=== PATIENT | female | born 1975 | race African-American/Black ===

== ENCOUNTER 2017-07-18 18:10 | Inpatient (IN) | payer OTHER, MEDICAID, MEDICARE ==
[~2017-07-18] VITALS: Ht 157.5 cm; Wt 98.8 kg
[~2017-07-18 18:10] MED LIST: BACT800T5 PO; BENZ0.5T PO; CITA20TA4 PO; DEFE1TAB3 PO; FENT50DI T-DERMAL; FOLI400T PO; FURO1TAB62 PO; HYDR-3366 PO; HYDR500C PO; PALI1TAB2 PO; XARE20TA PO
[2017-07-18 20:27] VITALS: BP 137/71; PULSE 96; RESP 20; TEMP 97.7; O2SAT 100
[2017-07-18] MEDS ORDERED: NALOXONE HCL 0.4 MG/ML AMP IV PUSH PRN (20:30)
[2017-07-18] MEDS ORDERED: BISACODYL 10 MG SUPP RECTAL PRN (20:30)
[2017-07-18] MEDS ORDERED: MAGNESIUM HYDROXIDE SUSP 30 ML CUP PO PRN (20:30)
[2017-07-18] MEDS ORDERED: SENNOSIDES 8.6 MG TAB PO PRN (20:30)
[2017-07-18] MEDS ORDERED: ACETAMINOPHEN 325 MG TAB PO PRN (20:30)
[2017-07-18] MEDS ORDERED: FUROSEMIDE 20 MG/2 ML VIAL IV PUSH ONE (20:30)
[2017-07-18] MEDS ORDERED: ONDANSETRON HCL 4 MG/2 ML VIAL IVP PRN (20:30)
[2017-07-18] MEDS ORDERED: SODIUM CHLORIDE 0.9% FLUSH 10 ML FLUSH IV FLUSH PRN (20:30)
[2017-07-18] MEDS ORDERED: LACTULOSE SYRUP 20 GM/30 ML CUP PO PRN (20:30)
[2017-07-18] MEDS ORDERED: SODIUM CHLOR 0.9% 250 ML INJ 250 ML IV ONE (20:30)
[2017-07-18 20:45] VITALS: O2SAT 100
[2017-07-18 21:00] VITALS: O2SAT 96
[2017-07-18] MEDS: SODIUM CHLORIDE 0.9% FLUSH 10 ML FLUSH IV FLUSH SCH (21:12)
[2017-07-18] MEDS ORDERED: ACETAMINOPHEN/HYDROcodone 325 MG/5 MG TAB PO PRN (21:30)
[2017-07-18] MEDS ORDERED: ACETAMINOPHEN/HYDROcodone 325 MG/10 MG TAB PO PRN (21:30)
[2017-07-18] MEDS ORDERED: CHLORHEXIDINE GLUCONATE 2 % 1 PACK (2 CLOTHS)(extra cloths) TOPICAL PRN (21:45)
[2017-07-18 22:00] VITALS: PULSE 92
[2017-07-18 23:00] VITALS: BP 117/65; PULSE 97; RESP 21; TEMP 97.9; O2SAT 92
--- NOTE | 2017-07-18 23:29 | HHI.HP ---
HPI Service [facility] Hospitalists Primary Care Physician Non-Staff Admission Diagnosis Diagnoses: Chief Complaint: dyspnea Travel History International Travel<30 Days: No Contact w/Intl Traveler <30 Da: No History of Present Illness 42 y/o female with a history of sickle cell anemia, schizophrenia, sleep apnea and chf presented to the [facility] ED with complaints of shortness of breath. She was found to have a hgb of 5.1 and transferred to the [facility]. Patient is lethargic at bedside, previously received pain medicine and has severe sleep apnea. Significant other is at bedside to provide information. Significant other states patient has been short of breath for a few months and was seen previously one month ago at [facility]. He states she was found to have a DVT in her right lower extremity and placed on Xarelto with an IVC filter placed. She is trying to follow up outpatient with the theater manager and quality coordinator and is in the process of filling out paperwork to be seen. He states she has sleep apnea but due to her schizophrenia and claustrophobia she is unable to wear a CPAP at home. Upon examination patient is pretty lethargic , opens eyes to painful stimuli. She is able to state she is not in any pain, but then dozes back off to sleep. Significant other does state she has CHF but is unsure of her ejection fraction. Since patient has mostly been seen at [facility], we do not have any baseline records, and records will be requested from [facility]. Review of Systems Except as stated in HPI: all other systems reviewed are Neg Past Family Social History Past Medical History Sickle cell anemia Sleep apnea CHF Schizophrenia Past Surgical History IVC filter Port placement Cholecystectomy Reported Medications Reported Meds & Active Scripts Active Reported Fentanyl Patch 72 HR (Fentanyl) 50 Mcg/Hr Patch 50 Mcg T-DERMAL Q72H Remove old patch when new one placed. Fr[place] (Hydrocodone-Acetaminophen) 10-325 Mg Tab 1 Tab PO QID PRN Bactrim DS (Sulfamethoxazole-Trimethoprim) 800-160 Mg Tab 1 Tab PO DAILY Hydrea (Hydroxyurea) 500 Mg Cap 1,000 Mg PO DAILY Xarelto (Rivaroxaban) 20 Mg Tab 20 Mg PO DAILY Lasix (Furosemide) 20 Mg Tab 20 Mg PO DAILY Jadenu (Deferasirox) 360 Mg Tab 1,080 Mg PO DAILY Folic Acid 0.4 Mg Tab 1 Mg PO DAILY Benztropine (Benztropine Mesylate) 0.5 Mg Tab 1 Mg PO BID Citalopram (Citalopram Hydrobromide) 20 Mg Tab 20 Mg PO DAILY Paliperidone ER 3 Mg Tab 3 Mg PO DAILY Allergies: Coded Allergies: butorphanol (Unverified Allergy, Severe, 07/18/17) chlorpromazine (Unverified Allergy, Severe, 07/18/17) hydromorphone (Unverified Allergy, Severe, 07/18/17) ketorolac (Unverified Allergy, Severe, 07/18/17) nalbuphine (Unverified Allergy, Severe, 07/18/17) penicillin G (Unverified Allergy, Severe, 07/18/17) Active Ordered Medications Current Medications Medications (Trade) Dose Ordered Sig/Gini Route Start Time Stop Time Status Last Admin (NS Flush) 2 ml UNSCH PRN IV FLUSH 07/18/17 20:30 (NS Flush) 2 ml BID IV FLUSH 07/18/17 21:00 07/18/17 21:12 (Tylenol) 650 mg Q4H PRN PO 07/18/17 20:30 (Zofran Inj) 4 mg Q6H PRN IVP 07/18/17 20:30 (Narcan Inj) 0.4 mg UNSCH PRN IV PUSH 07/18/17 20:30 (Milk Of Magnesia Liq) 30 ml Q12H PRN PO 07/18/17 20:30 (Senokot) 17.2 mg Q12H PRN PO 07/18/17 20:30 (Dulcolax Supp) 10 mg DAILY PRN RECTAL 07/18/17 20:30 (Lactulose Liq) 30 ml DAILY PRN PO 07/18/17 20:30 Sodium Chloride 250 ml @ 15 mls/hr ONCE ONCE IV 07/18/17 20:30 07/19/17 13:09 07/18/17 21:12 (Frisco 5-325 Mg) 1 tab Q4H PRN PO 07/18/17 21:30 (Frisco 10-325 Mg) 1 tab Q4H PRN PO 07/18/17 21:30 (Morphine Inj) 2 mg Q3H PRN IV PUSH 07/18/17 21:45 Miscellaneous Information Patient in critical care unit? Ass... Q361D .XX 07/18/17 21:45 (Chlorhexidine 2% Cloth) 3 pack DAILY@04 TOPICAL 07/19/17 04:00 07/23/17 04:01 (Chlorhexidine 2% Cloth) 3 pack UNSCH PRN TOPICAL 07/18/17 21:45 07/23/17 21:35 Family History Unobtainable Social History Tobacco use: Denies Alcohol use: Denies Illicit drug use: Denies Physical Exam Vital Signs Vital Signs Date Time Temp Pulse Resp B/P (MAP) Pulse Ox O2 Delivery O2 Flow Rate FiO2 07/18/17 23:00 97.9 97 21 117/65 92 07/18/17 21:00 96 Nasal Cannula 4.00 07/18/17 20:45 100 Non-Rebreather 15.00 100 07/18/17 20:27 97.7 96 20 137/71 (93) 100 Physical Exam GENERAL: This is a well-nourished, obese lethargic patient with sleep apnea. SKIN: No rashes, ecchymoses or lesions. Cool and dry. HEAD: Atraumatic. Normocephalic. EYES: Pupils equal round and reactive. ENT: Nose without bleeding, purulent drainage or septal hematoma.Airway patent. NECK: Trachea midline. No JVD or lymphadenopathy. CARDIOVASCULAR: Regular rate and rhythm without murmurs, gallops, or rubs. RESPIRATORY: Diminished lower bases. No wheezes, rales, or rhonchi. GASTROINTESTINAL: Abdomen soft, non-tender, nondistended. No guarding. MUSCULOSKELETAL: Right lower extremity edema greater than left. Right calf tenderness. NEUROLOGICAL: Lethargic. Cranial nerves II through XII intact. Motor and sensory grossly within normal limits. Normal speech. Laboratory Laboratory Tests Test 07/18/17 20:30 07/18/17 21:18 Troponin I LESS THAN 0.02 Caprini VTE Risk Assessment Caprini VTE Risk Assessment: Mod/High Risk (score >= 2) Caprini Risk Assessment Model Point Value = 1 Point Value = 2 Point Value = 3 Point Value = 5 Age 41-60 Minor surgery BMI > 25 kg/m2 Swollen legs Varicose veins or History of unexplained or recurrent spontaneous Oral contraceptives or hormone replacement Sepsis (< 1 month) Serious lung disease, including pneumonia (< 1 month) Abnormal pulmonary function Acute myocardial infarction Congestive heart failure (< 1 month) History of inflammatory bowel disease Medical patient at bed rest Age 61-74 Arthroscopic surgery Major open surgery (> 45 min) Laparoscopic surgery (> 45 min) Malignancy Confined to bed (> 72 hours) Immobilizing plaster cast Central venous access Age >= 75 History of VTE Family history of VTE Factor V Leiden Prothrombin [id number] Lupus anticoagulant Anticardiolipin antibodies Elevated serum homocysteine Heparin-induced thrombocytopenia Other congenital or acquired thrombophilia Stroke (< 1 month) Elective arthroplasty Hip, pelvis, or leg fracture Acute spinal cord injury (< 1 month) Prophylaxis Regimen Total Risk Factor Score Risk Level Prophylaxis Regimen 0-1 Low Early ambulation 2 Moderate Order ONE of the following: *Sequential Compression Device (SCD) *Heparin 5000 units SQ BID 3-4 Higher Order ONE of the following medications: *Heparin 5000 units SQ TID *Enoxaparin/Lovenox 40 mg SQ daily (WT < 150 kg, CrCl > 30 mL/min) *Enoxaparin/Lovenox 30 mg SQ daily (WT < 150 kg, CrCl > 10-29 mL/min) *Enoxaparin/Lovenox 30 mg SQ BID (WT < 150 kg, CrCl > 30 mL/min) AND/OR *Sequential Compression Device (SCD) 5 or more Highest Order ONE of the following medications: *Heparin 5000 units SQ TID (Preferred with Epidurals) *Enoxaparin/Lovenox 40 mg SQ daily (WT < 150 kg, CrCl > 30 mL/min) *Enoxaparin/Lovenox 30 mg SQ daily (WT < 150 kg, CrCl > 10-29 mL/min) *Enoxaparin/Lovenox 30 mg SQ BID (WT < 150 kg, CrCl > 30 mL/min) AND *Sequential Compression Device (SCD) Assessment and Plan Problem List: (1) Symptomatic anemia ICD Code: D64.9 - Anemia, unspecified (2) CHF (congestive heart failure) ICD Code: I50.9 - Heart failure, unspecified (3) Sickle cell anemia ICD Code: D57.1 - Sickle-cell disease without crisis Assessment and Plan 42 y/o female with a history of sickle cell anemia, schizophrenia, sleep apnea and chf presented to the [facility] ED with complaints of shortness of breath Acute Symptomatic anemia, on chronic sickle cell HGB 5.1, EKG SR -Transfuse 2 units PRBCs, Lasix after first unit. -Pain management with IV morphine -Consult hematology appreciate recommendations Acute CHF exacerbation on chronic CHF, unknown EF BNP 1180 -Fluid restriction -2D echo ordered Dyspnea, suspect due to CHF and anemia D dimer elevated r/o PE, history DVT -VQ scan due to patients kidney function Severe Sleep apnea, patient lethargic upon examination -CPAP ordered Acute kidney injury on possibly chronic kidney disease, likely due to anemia Creatine 1.6, unknown baseline -Tread creatine -Avoid nephrotoxins DVT prophylaxis: SCDs, hold chemical due to anemia Discussed Condition With Patient Physician Certification 2 Midnight Certification Type: Admission for Inpatient Services Order for Inpatient Services The services are ordered in accordance with Medicare regulations or non- Medicare payer requirements, as applicable. In the case of services not specified as inpatient-only, they are appropriately provided as inpatient services in accordance with the 2-midnight benchmark. Estimated LOS (days): 2 days is the estimated time the patient will need to remain in the hospital, assuming treatment plan goals are met and no additional complications. Post-Hospital Plan: Sherri Walden Jul 18, 2017 23:29
[2017-07-19] VITALS (19 sets, daily range): BP systolic 106–134; BP diastolic 57–77; PULSE 82–102; RESP 14–28; TEMP 98.4–99.1; O2SAT 92–100
[2017-07-19] MEDS: CHLORHEXIDINE GLUCONATE 2 % 1 PACK (2 CLOTHS)(taper/protocol) TOPICAL SCH (04:00)
[2017-07-19 05:50] LABS: BASOPHIL % 0.1 % (0.0-2.0); LYMPH % 8.5 % (9.0-44.0); LYMPHOCYTE # 0.8 TH/MM3 (1.0-4.8); MEAN CELL VOLUME 88.2 FL (80.0-100.0); MEAN CORPUSCULAR HEMOGLOBIN 31.7 PG (27.0-34.0); MEAN PLATELET VOLUME 9.2 FL (7.0-11.0); MONOCYTE # 0.4 TH/MM3 (0-0.9); NEUT % 87.4 % (16.0-70.0); PLATELET COUNT 267 TH/MM3 (150-450); RED BLOOD COUNT 2.17 MIL/MM3 (4.00-5.30); RED CELL DISTRIBUTION WIDTH 21.3 % (11.6-17.2); WHITE BLOOD COUNT 9.2 TH/MM3 (4.0-11.0)
[2017-07-19 06:02] LABS: BICARBONATE 27.7 MEQ/L (21.0-32.0); CALCIUM 8.7 MG/DL (8.5-10.1); CREATININE 1.95 MG/DL (0.50-1.00)
[2017-07-19 06:07] LABS: HEMATOCRIT 19.1 % (35.0-46.0); HEMOGLOBIN 6.9 GM/DL (11.6-15.3)
[2017-07-19] MEDS ORDERED: SODIUM CHLOR 0.9% 250 ML INJ 250 ML IV ONE (06:15)
[2017-07-19] MEDS: MORPHINE SULFATE 2 MG/ML INJ IV PUSH PRN ×5 (07:30→22:22)
--- NOTE | 2017-07-19 08:09 | HHI.PR ---
Subjective Remarks f/u; sickle cell crisis on BiPaP. says that the pain is slightly better. blood transfusion in process. d/w the RN. Objective Vitals Vital Signs Date Time Temp Pulse Resp B/P (MAP) Pulse Ox O2 Delivery O2 Flow Rate FiO2 07/19/17 07:20 99.1 14 112/61 100 07/19/17 06:00 87 07/19/17 04:34 98.7 93 22 132/62 94 07/19/17 04:05 94 45 07/19/17 04:00 98.5 93 21 132/62 (85) 94 07/19/17 04:00 93 07/19/17 02:00 101 07/19/17 01:51 99.0 102 28 128/57 95 07/19/17 01:06 94 45 07/19/17 00:00 98 07/19/17 00:00 98.5 98 20 134/66 (88) 92 07/18/17 23:00 97.9 97 21 117/65 92 07/18/17 22:00 92 07/18/17 21:00 96 Nasal Cannula 4.00 07/18/17 20:45 100 Non-Rebreather 15.00 100 07/18/17 20:27 97.7 96 20 137/71 (93) 100 I/O 07/18/17 07/18/17 07/18/17 07/19/17 07/19/17 07/19/17 07:00 15:00 23:00 07:00 15:00 23:00 Intake Total 960 ml 20 ml Output Total 40 ml Balance 920 ml 20 ml Intake Oral 100 ml Packed Cells 800 ml Blood Product IV Normal Saline Flush 60 ml 20 ml Output Urine Total 40 ml Stool Total 0 ml # Voids 1 Result Diagram: 07/19/17 0525 07/19/17 0525 Objective Remarks GENERAL: mildly lethargic- in no apparent distress. CARDIOVASCULAR: Regular rate and irregular rhythm without murmurs, gallops, or rubs. RESPIRATORY: Clear to auscultation. Breath sounds equal bilaterally. No wheezes , rales, or rhonchi. GASTROINTESTINAL: Abdomen soft, non-tender, nondistended. Normal, active bowel sounds MUSCULOSKELETAL: Extremities without clubbing, cyanosis, or edema. NEURO: mildly lethargic. Medications and IVs Inpatient Medications Acetaminophen (Tylenol) 650 mg Q4H PRN PO TEMP > 100.4; Start 07/18/17 at 20:30 Acetaminophen/ Hydrocodone Bitart (Decker 5-325 Mg) 1 tab Q4H PRN PO pain 1-5; Start 07/18/17 at 21:30 Acetaminophen/ Hydrocodone Bitart (Decker 10-325 Mg) 1 tab Q4H PRN PO pain 6-10 ; Start 07/18/17 at 21:30 Benztropine Mesylate (Cogentin) 1 mg BID PO ; Start 07/19/17 at 09:00 Bisacodyl (Dulcolax Supp) 10 mg DAILY PRN RECTAL SEVERE CONSITIPATION; Start at 20:30 Chlorhexidine Gluconate (Chlorhexidine 2% Cloth) 3 pack UNSCH PRN TOPICAL HYGIENIC CARE; Start 07/18/17 at 21:45; Stop 07/23/17 at 21:35 Citalopram Hydrobromide (CeleXA) 20 mg DAILY PO ; Start 07/19/17 at 09:00 Folic Acid (Folate) 1 mg DAILY PO ; Start 07/19/17 at 09:00 Furosemide (Lasix Inj) 20 mg BID@18 IV PUSH ; Start 07/19/17 at 09:00 Hydroxyurea (Hydrea) 1,000 mg DAILY PO ; Start 07/19/17 at 09:00 Lactulose (Lactulose Liq) 30 ml DAILY PRN PO SEVERE CONSITIPATION; Start at 20:30 Magnesium Hydroxide (Milk Of Magnesia Liq) 30 ml Q12H PRN PO Mild constipation ; Start 07/18/17 at 20:30 Miscellaneous Information Patient in critical care unit? Ass... Q361D .XX ; Start 07/18/17 at 21:45 Morphine Sulfate (Morphine Inj) 2 mg Q3H PRN IV PUSH breakthrough Last administered on 07/19/17at 07:30; Start 07/18/17 at 21:45 Naloxone HCl (Narcan Inj) 0.4 mg UNSCH PRN IV PUSH SEE LABEL COMMENTS; Start at 20:30 Non-Formulary Medication 1,080 mg DAILY PO ; Start 07/19/17 at 09:00; Stop at 09:00; Status DC Ondansetron HCl (Zofran Inj) 4 mg Q6H PRN IVP NAUSEA OR VOMITING; Start at 20:30 Paliperidone Palmitate (Invega Er) 3 mg DAILY PO ; Start 07/19/17 at 09:00 Patient Own Medication PT OWN MED: Deferasi... DAILY PO ; Start 07/19/17 at 09:00 ; Status Future Hold Sennosides (Senokot) 17.2 mg Q12H PRN PO Moderate constipation; Start 07/18/17 at 20:30 Sodium Chloride 250 ml @ 15 mls/hr ONCE ONCE IV ; Start 07/19/17 at 06:15; Stop 07/19/17 at 22:54 Sodium Chloride (NS Flush) 2 ml BID IV FLUSH Last administered on 07/18/17at 21: 12; Start 07/18/17 at 21:00 A/P Problem List: (1) Symptomatic anemia ICD Code: D64.9 - Anemia, unspecified (2) CHF (congestive heart failure) ICD Code: I50.9 - Heart failure, unspecified (3) Sickle cell anemia ICD Code: D57.1 - Sickle-cell disease without crisis Assessment and Plan Acute Symptomatic anemia, on chronic sickle cell -Transfused 3 units PRBCs. -Pain management with IV morphine -Consulted hematology appreciate recommendations Acute CHF exacerbation on chronic CHF, unknown EF BNP 1180 -Fluid restriction -2D echo ordered Dyspnea, suspect due to CHF and anemia D dimer elevated r/o PE, history DVT -VQ scan due to patients kidney function Severe Sleep apnea, patient lethargic upon examination -CPAP ordered -repeat ABG today Acute kidney injury on possibly chronic kidney disease, likely due to anemia -Tread creatine -Avoid nephrotoxins DVT prophylaxis:resume Xarelto will keep in ICU today. d/w the RN. Sajan Hills MD Jul 19, 2017 08:09
[2017-07-19 08:43] LABS: BANDS 2 % (0-6); CORRECTED NUCLEATED RBC 13 /100 WBC (0-0); KERATOCYTES 1+ (NORMAL); LYMPHOCYTES 11 % (9-44); NEUTROPHIL # MANUAL DIFF 8.2 TH/MM3 (1.8-7.7); NUCLEATED RED BLOOD CELL 13 (0-0); POLYS (SEG NEUTROPHILS) 87 % (16-70); SICKLE CELLS 1+ (NORMAL); TARGET CELLS 2+ (NORMAL)
[2017-07-19] MEDS: BENZTROPINE MESYLATE 1 MG TAB PO SCH ×2 (09:00→21:30)
[2017-07-19] MEDS: PALIPERIDONE ER 3 MG TAB PO SCH (09:00)
[2017-07-19] MEDS ORDERED: DEFERASIROX 1080 MG PO SCH ×2 (09:00)
[2017-07-19] MEDS ORDERED: DEFERASIROX 360 MG PO SCH (09:00)
[2017-07-19] MEDS: HYDROXYUREA 500 MG CAP PO SCH (09:00)
[2017-07-19] MEDS: CITALOPRAM HYDROBROMIDE 20 MG TAB PO SCH (09:08)
[2017-07-19] MEDS: FOLIC ACID 1 MG TAB PO SCH (09:08)
[2017-07-19] MEDS: FUROSEMIDE 20 MG/2 ML VIAL IV PUSH SCH ×2 (09:09→17:52)
[2017-07-19] MEDS: RIVAROXABAN 20 MG TAB PO SCH (09:16)
[2017-07-19] MEDS: SODIUM CHLORIDE 0.9% FLUSH 10 ML FLUSH IV FLUSH SCH ×2 (09:29→21:30)
[2017-07-19] MEDS: DEFERASIROX 360 MG PO SCH (11:00)
--- NOTE | 2017-07-19 22:07 | EKG ---
Date Performed: 07/18/2017 Time Performed: 21:56:58 PTAGE: 42 years EKG: Sinus rhythm LOW QRS VOLTAGE POSSIBLE ANTERIOR MYOCARDIAL INFARCTION , PROBABLY OLD ABNORMAL ECG PREVIOUS TRACING : 05/24/2003 22.22 DOCTOR: Manju Tinoco Interpretating Date/Time 07/19/2017 22:01:38
[2017-07-20] VITALS (19 sets, daily range): BP systolic 100–140; BP diastolic 47–90; PULSE 85–99; RESP 16–31; TEMP 98.1–99.1; O2SAT 91–96
[2017-07-20 00:38] LABS: HEMOGLOBIN 6.9 GM/DL (11.6-15.3)
[2017-07-20] MEDS ORDERED: FUROSEMIDE 20 MG/2 ML VIAL IV PUSH ONE (01:00)
[2017-07-20] MEDS ORDERED: SODIUM CHLOR 0.9% 250 ML INJ 250 ML IV ONE (01:00)
[2017-07-20] MEDS: CHLORHEXIDINE GLUCONATE 2 % 1 PACK (2 CLOTHS)(taper/protocol) TOPICAL SCH (03:45)
[2017-07-20] MEDS: MORPHINE SULFATE 2 MG/ML INJ IV PUSH PRN ×2 (06:25→20:16)
--- NOTE | 2017-07-20 07:08 | MB ---
cc: MEDINA BLISS M.D. DATE OF CONSULTATION 07/19/2017 REASON FOR CONSULTATION Consult requested by hospitalist for followup of sickle-cell anemia with the painful crisis. HISTORY OF PRESENT ILLNESS Cary is a 42-year-old Afro-[place] female. She has a history of sickle-cell anemia with multiple painful crises. She presented to the [facility] in [place] complaining of shortness of breath. The blood workup showed severe anemia with a hemoglobin of 5.1. The patient was transferred to [facility] for further evaluation. The patient is in the intensive care unit and I have been asked to see her for further evaluation. The patient is lethargic. Per the patient's nurse, he gave her morphine for the pain and patient is unable to give much history right now. She does have sleep apnea syndrome and she has been painting. She does not appear to be in any distress other than problem with the breathing. She has been to [facility] for similar complaint about a month ago according to the records. She also has DVT in the right lower extremity and she was started on Xarelto and had an IVC filter placed. 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 No records are available from [facility]. REVIEW OF SYSTEMS Review of systems is not possible due to the patient's lethargy. PAST MEDICAL HISTORY 1. Sickle-cell anemia with multiple painful crises. 2. Sleep apnea. 3. Congestive heart failure. 4. Schizophrenia. 5. Right lower extremity DVT. PAST SURGICAL HISTORY 1. IVC filter placement. 2. [id number] placement. 3. Cholecystectomy. ALLERGIES BUTORPHANOL. CHLORPROMAZINE. HYDROMORPHONE. KETOROLAC. NALBUPHINE. PENICILLIN. MEDICATIONS prior to coming the hospital were - 1. Fentanyl patch. 2. Gaffney. 3. Bactrim. 4. Hydrea. 5. Xarelto. 6. Lasix. 7. Jadenu. 8. Folic acid. 9. Benztropine. 10. Citalopram. 11. Paliperidone. FAMILY HISTORY Unable to obtain. SOCIAL HISTORY Unable to obtain. PHYSICAL EXAMINATION GENERAL: This is a well-developed Afro-[place] female in mild respiratory distress. VITAL SIGNS: Temperature 98.4, heart rate is 82, blood pressure 111/69, O2 saturation 98% on FIO2 45. HEENT: PERRLA. EOMI. Sclerae icteric. No oral lesions noted. NECK: No lymphadenopathy noted. LUNGS: Clear. No wheezing, rhonchi or rales. HEART: Regular rate and rhythm. ABDOMEN: Soft. Bowel sounds are active. EXTREMITIES: Edema noted which appears to be chronic. NEUROLOGY: The patient is lethargic. SKIN: No significant lesions are noted. ASSESSMENT 1. Sickle-cell anemia with painful crisis. 2. No evidence of acute chest syndrome at this time. PLAN 1. I have reviewed her available records. The chest x-ray shows significant enlargement of the cardiac silhouette. My recommendation is to get a cardiology consult for congestive heart failure. 2. I agree with blood transfusion for a hemoglobin of 6.9. 3. Continue to monitor CBC daily. 4. Further recommendations based on her hospital stay. Thank you for asking my opinion. MD ALFREDO Elliott/KATELYN /6:28 PM /6:55 AM
[2017-07-20] MEDS: DEFERASIROX 360 MG PO SCH (07:49)
[2017-07-20] MEDS: PALIPERIDONE ER 3 MG TAB PO SCH (07:51)
[2017-07-20] MEDS: RIVAROXABAN 20 MG TAB PO SCH (07:51)
[2017-07-20] MEDS: FOLIC ACID 1 MG TAB PO SCH (07:51)
[2017-07-20] MEDS: FUROSEMIDE 20 MG/2 ML VIAL IV PUSH SCH ×2 (07:51→18:53)
[2017-07-20] MEDS: HYDROXYUREA 500 MG CAP PO SCH (07:52)
[2017-07-20] MEDS: CITALOPRAM HYDROBROMIDE 20 MG TAB PO SCH (07:53)
[2017-07-20] MEDS: BENZTROPINE MESYLATE 1 MG TAB PO SCH ×2 (07:53→20:16)
[2017-07-20] MEDS: SODIUM CHLORIDE 0.9% FLUSH 10 ML FLUSH IV FLUSH SCH ×2 (07:53→20:17)
--- NOTE | 2017-07-20 13:32 | PD.ONC.PN ---
Subjective Subjective Remarks Afebrile overnight. patient resting in room with significant other at bedside. reports she still has some pain in her feet but otherwise has no pain. ABG showed significantly elevated ph and CO2. patient refusing bipap. she is requesting "corn starch." Objective Data Date Time Temp Pulse Resp B/P (MAP) Pulse Ox O2 Delivery O2 Flow Rate FiO2 07/20/17 12:00 98 07/20/17 12:00 98.4 98 18 106/47 (66) 93 07/20/17 10:00 89 07/20/17 09:59 93 Nasal Cannula 4.00 07/20/17 09:00 91 07/20/17 08:00 98.2 91 16 100/51 (67) 95 07/20/17 06:50 99.0 85 16 117/81 91 07/20/17 06:30 16 07/20/17 06:00 86 07/20/17 04:35 94 45 07/20/17 04:00 99.1 93 17 107/55 (72) 94 07/20/17 04:00 93 07/20/17 03:50 99.1 92 31 105/57 94 07/20/17 02:00 99 07/20/17 01:56 93 45 07/20/17 00:00 96 07/20/17 00:00 98.1 96 16 114/61 (78) 93 07/19/17 22:00 93 07/19/17 21:13 96 Nasal Cannula 4.00 07/19/17 20:00 96 07/19/17 20:00 99.0 96 18 106/77 (87) 94 07/19/17 18:00 85 07/19/17 16:00 98.4 82 18 111/69 (83) 98 07/19/17 16:00 82 07/19/17 14:00 92 07/20/17 07/20/17 07/20/17 06:59 14:59 22:59 Intake Total 980 ml 440 ml Output Total 1100 ml Balance -120 ml 440 ml Result Diagram: 07/20/17 0020 07/19/17 0525 Laboratory Results Laboratory Tests Test 07/19/17 23:19 07/20/17 00:20 Blood Gas Puncture Site RT BRACHIAL Blood Gas Patient Temperature 98.6 Blood Gas HCO3 25 mmol/L Blood Gas Base Excess -1.5 mmol/L Blood Gas Oxygen Saturation 91 % Arterial Blood pH 7.27 Arterial Blood Partial Pressure CO2 55 mmHg Arterial Blood Partial Pressure O2 91 mmHg Arterial Blood Oxygen Content 9.0 Vol % Arterial Blood Carboxyhemoglobin 3.5 % Arterial Blood Methemoglobin 2.4 % Blood Gas Hemoglobin 6.9 G/DL Oxygen Delivery Device NASAL CANNULA Blood Gas Liter Flow 4 L/M Hemoglobin 6.9 GM/DL Hematocrit 19.0 % Administered Medications Medications (Trade) Dose Ordered Sig/Gini Route PRN Reason Start Time Stop Time Status Last Admin Dose Admin Sodium Chloride (NS Flush) 2 ml BID IV FLUSH 07/18/17 21:00 07/20/17 07:53 Morphine Sulfate (Morphine Inj) 2 mg Q3H PRN IV PUSH PAIN 607/18/17 21:45 07/20/17 06:25 Chlorhexidine Gluconate (Chlorhexidine 2% Cloth) 3 pack DAILY@04 TOPICAL 07/19/17 04:00 07/23/17 04:01 07/20/17 03:45 Benztropine Mesylate (Cogentin) 1 mg BID PO 07/19/17 09:00 07/20/17 07:53 Citalopram Hydrobromide (CeleXA) 20 mg DAILY PO 07/19/17 09:00 07/20/17 07:53 Folic Acid (Folate) 1 mg DAILY PO 07/19/17 09:00 07/20/17 07:51 Hydroxyurea (Hydrea) 1,000 mg DAILY PO 07/19/17 09:00 07/20/17 07:52 Paliperidone Palmitate (Invega Er) 3 mg DAILY PO 07/19/17 09:00 07/20/17 07:51 Furosemide (Lasix Inj) 20 mg BID@ IV PUSH 07/19/17 09:00 07/20/17 07:51 Rivaroxaban (Xarelto) 20 mg DAILY PO 07/19/17 09:00 07/20/17 07:51 Patient Own Medication PT OWN MED: Deferasi... DAILY PO 07/19/17 11:00 07/20/17 07:49 Sodium Chloride 250 ml @ 15 mls/hr ONCE ONCE IV 07/20/17 01:00 07/20/17 17:39 07/20/17 03:45 Objective Remarks GENERAL: Obese middle aged female, lying supine in bed, appears dyspneic. on O2 via NC. SKIN: Warm and dry. HEAD: Normocephalic. EYES: No injection or drainage. NECK: Supple, trachea midline. CARDIOVASCULAR: Regular rate and rhythm RESPIRATORY: anterior resendiz with occasional rhonchi. GASTROINTESTINAL: Abdomen soft, non-tender, nondistended. MUSCULOSKELETAL: No cyanosis Assessment/Plan Problem List: (1) Sickle cell anemia ICD Codes: D57.1 - Sickle-cell disease without crisis Plan: 07/20: continue supportive care. s/p 2 units pRBC today. agree with cardiology consult. will obtain hepatic function panel and BNP as well. --CXR-->shows enlargement of the cardiac silhouette. follows with a lead applier in [place]. (2) CHF (congestive heart failure) ICD Codes: I50.9 - Heart failure, unspecified Plan: --cardiology consulted --echo pending Assessment 42y/o female with sicle cell anemia admitted in vasoocclusive crises. h/o DVT in the right lower extremity-->on Xarelto and had an IVC filter placed. h/o Sickle-cell anemia with multiple painful crises. Sleep apnea. Congestive heart failure. Schizophrenia. Attending Statement The exam, history, and the medical decision-making described in the above note were completed with the assistance of the mid-level provider. I reviewed and agree with the findings presented. I attest that I had a [id number] encounter with the patient on the same day, and personally performed and documented my assessment and findings in the medical record. Complaining of shortness breath Denies any chest pain No evidence of acute chest syndrome Hemoglobin improve after the blood transfusion Patient has congestive Heart failure Cardiology input Pending monitor C Problem Qualifiers (1) Sickle cell anemia: Qualified Codes: D57.00 - Hb-SS disease with crisis, unspecified Elsy Pedraza Jul 20, 2017 13:32 Nina Villa MD Jul 20, 2017 21:34
--- NOTE | 2017-07-20 13:35 | HHI.PR ---
Subjective Remarks in no acute distress. looks more alert today. still on oxygen via N/C. pain seems to be better today. Objective Vitals Vital Signs Date Time Temp Pulse Resp B/P (MAP) Pulse Ox O2 Delivery O2 Flow Rate FiO2 07/20/17 12:00 98 07/20/17 12:00 98.4 98 18 106/47 (66) 93 07/20/17 10:00 89 07/20/17 09:59 93 Nasal Cannula 4.00 07/20/17 09:00 91 07/20/17 08:00 98.2 91 16 100/51 (67) 95 07/20/17 06:50 99.0 85 16 117/81 91 07/20/17 06:30 16 07/20/17 06:00 86 07/20/17 04:35 94 45 07/20/17 04:00 99.1 93 17 107/55 (72) 94 07/20/17 04:00 93 07/20/17 03:50 99.1 92 31 105/57 94 07/20/17 02:00 99 07/20/17 01:56 93 45 07/20/17 00:00 96 07/20/17 00:00 98.1 96 16 114/61 (78) 93 07/19/17 22:00 93 07/19/17 21:13 96 Nasal Cannula 4.00 07/19/17 20:00 96 07/19/17 20:00 99.0 96 18 106/77 (87) 94 07/19/17 18:00 85 07/19/17 16:00 98.4 82 18 111/69 (83) 98 07/19/17 16:00 82 07/19/17 14:00 92 I/O 07/19/17 07/19/17 07/19/17 07/20/17 07/20/17 07/20/17 07:00 15:00 23:00 07:00 15:00 23:00 Intake Total 960 ml 20 ml 1650 ml 980 ml 440 ml Output Total 40 ml 700 ml 1100 ml Balance 920 ml 20 ml 950 ml -120 ml 440 ml Intake Oral 100 ml 650 ml 280 ml Packed Cells 800 ml 1000 ml 700 ml 400 ml Blood Product IV Normal Saline Flush 60 ml 20 ml 40 ml Output Urine Total 40 ml 700 ml 1100 ml Stool Total 0 ml # Voids 1 # Bowel Movements 0 Result Diagram: 07/20/17 0020 07/19/17 0525 Objective Remarks GENERAL: mildly lethargic- in no apparent distress. CARDIOVASCULAR: Regular rate and irregular rhythm without murmurs, gallops, or rubs. RESPIRATORY: Clear to auscultation. Breath sounds equal bilaterally. No wheezes , rales, or rhonchi. GASTROINTESTINAL: Abdomen soft, non-tender, nondistended. Normal, active bowel sounds MUSCULOSKELETAL: Extremities without clubbing, cyanosis, or edema. NEURO: mildly lethargic. Medications and IVs Inpatient Medications Acetaminophen (Tylenol) 650 mg Q4H PRN PO TEMP > 100.4; Start 07/18/17 at 20:30 Acetaminophen/ Hydrocodone Bitart ([place] 5-325 Mg) 1 tab Q4H PRN PO pain 1-5; Start 07/18/17 at 21:30; Stop 07/19/17 at 09:41; Status DC Acetaminophen/ Hydrocodone Bitart ([place] 10-325 Mg) 1 tab Q4H PRN PO PAIN 1-5; Start 07/18/17 at 21:30 Benztropine Mesylate (Cogentin) 1 mg BID PO Last administered on 07/20/17at 07:53 ; Start 07/19/17 at 09:00 Bisacodyl (Dulcolax Supp) 10 mg DAILY PRN RECTAL SEVERE CONSITIPATION; Start at 20:30 Chlorhexidine Gluconate (Chlorhexidine 2% Cloth) 3 pack UNSCH PRN TOPICAL HYGIENIC CARE; Start 07/18/17 at 21:45; Stop 07/23/17 at 21:35 Citalopram Hydrobromide (CeleXA) 20 mg DAILY PO Last administered on 07/20/17at 07:53; Start 07/19/17 at 09:00 Folic Acid (Folate) 1 mg DAILY PO Last administered on 07/20/17at 07:51; Start at 09:00 Furosemide (Lasix Inj) 20 mg ONCE ONCE IV PUSH Last administered on 07/20/17at 03:44; Start 07/20/17 at 01:00; Stop 07/20/17 at 01:01; Status DC Hydroxyurea (Hydrea) 1,000 mg DAILY PO Last administered on 07/20/17at 07:52; Start 07/19/17 at 09:00 Lactulose (Lactulose Liq) 30 ml DAILY PRN PO SEVERE CONSITIPATION; Start at 20:30 Magnesium Hydroxide (Milk Of Magnesia Liq) 30 ml Q12H PRN PO Mild constipation ; Start 07/18/17 at 20:30 Miscellaneous Information Patient in critical care unit? Ass... Q361D .XX ; Start 07/18/17 at 21:45 Morphine Sulfate (Morphine Inj) 2 mg Q3H PRN IV PUSH PAIN 6-10 Last administered on 07/20/17at 06:25; Start 07/18/17 at 21:45 Naloxone HCl (Narcan Inj) 0.4 mg UNSCH PRN IV PUSH SEE LABEL COMMENTS; Start at 20:30 Non-Formulary Medication 1,080 mg DAILY PO ; Start 07/19/17 at 09:00; Stop at 09:00; Status DC Ondansetron HCl (Zofran Inj) 4 mg Q6H PRN IVP NAUSEA OR VOMITING; Start at 20:30 Paliperidone Palmitate (Invega Er) 3 mg DAILY PO Last administered on 07/20/17at 07:51; Start 07/19/17 at 09:00 Patient Own Medication PT OWN MED: Deferasi... DAILY PO Last administered on 07/20/17at 07:49; Start 07/19/17 at 11:00 Rivaroxaban (Xarelto) 20 mg DAILY PO Last administered on 07/20/17at 07:51; Start 07/19/17 at 09:00 Sennosides (Senokot) 17.2 mg Q12H PRN PO Moderate constipation; Start 07/18/17 at 20:30 Sodium Chloride 250 ml @ 15 mls/hr ONCE ONCE IV Last administered on at 03:45; Start 07/20/17 at 01:00; Stop 07/20/17 at 17:39 Sodium Chloride (NS Flush) 2 ml BID IV FLUSH Last administered on 07/20/17at 07: 53; Start 07/18/17 at 21:00 A/P Problem List: (1) Symptomatic anemia ICD Code: D64.9 - Anemia, unspecified (2) CHF (congestive heart failure) ICD Code: I50.9 - Heart failure, unspecified (3) Sickle cell anemia ICD Code: D57.1 - Sickle-cell disease without crisis Assessment and Plan Acute Symptomatic anemia, on chronic sickle cell -Transfused with PRBC. -Pain management with IV morphine -Consulted hematology appreciate recommendations acute hypercapnic respiratory failure sleep apnea Acute CHF exacerbation on chronic CHF, unknown EF BNP 1180 -Fluid restriction -2D echo ordered -BiPaP as needed- although the patient refused earlier. -consult cardiology -consult pulmonary Dyspnea, suspect due to CHF and anemia D dimer elevated r/o PE, history DVT -VQ scan -pending. Acute kidney injury on possibly chronic kidney disease -Tread creatine -Avoid nephrotoxins DVT prophylaxis:resume Xarelto will keep in ICU today. d/w the RN. Sajan Hills MD Jul 20, 2017 13:35
[2017-07-20 14:00] LABS: AUTOMATED NEUTROPHIL # 7.7 TH/MM3 (1.8-7.7); BASOPHIL # 0.1 TH/MM3 (0-0.2); BASOPHIL % 1.1 % (0.0-2.0); EOSINOPHIL % 0.4 % (0.0-4.0); HEMATOCRIT 24.2 % (35.0-46.0); HEMOGLOBIN 8.4 GM/DL (11.6-15.3); LYMPH % 7.9 % (9.0-44.0); LYMPHOCYTE # 0.8 TH/MM3 (1.0-4.8); MEAN CELL VOLUME 89.1 FL (80.0-100.0); MEAN CORPUSCULAR HEMOGLOBIN 30.8 PG (27.0-34.0); MEAN CORPUSCULAR HGB CONC 34.6 % (32.0-36.0); MEAN PLATELET VOLUME 9.1 FL (7.0-11.0); MONO % 13.4 % (0.0-8.0); MONOCYTE # 1.3 TH/MM3 (0-0.9); NEUT % 77.2 % (16.0-70.0); PLATELET COUNT 230 TH/MM3 (150-450); RED BLOOD COUNT 2.72 MIL/MM3 (4.00-5.30); RED CELL DISTRIBUTION WIDTH 21.2 % (11.6-17.2); WHITE BLOOD COUNT 9.9 TH/MM3 (4.0-11.0)
[2017-07-20 14:34] LABS: BICARBONATE 28.4 MEQ/L (21.0-32.0); CALCIUM 8.5 MG/DL (8.5-10.1); CREATININE 1.98 MG/DL (0.50-1.00)
[2017-07-20 14:45] LABS: CORRECTED NUCLEATED RBC 12 /100 WBC (0-0); LYMPHOCYTES 8 % (9-44); MONOCYTES 5 % (0-8); NEUTROPHIL # MANUAL DIFF 8.6 TH/MM3 (1.8-7.7); NUCLEATED RED BLOOD CELL 12 (0-0); POLYS (SEG NEUTROPHILS) 87 % (16-70)
[2017-07-20 14:46] LABS: KERATOCYTES 1+ (NORMAL); OVALOCYTES 2+ (NORMAL); SICKLE CELLS 1+ (NORMAL); TARGET CELLS 2+ (NORMAL); TEARDROP RBCS 1+ (NORMAL)
[2017-07-20 15:29] LABS: ALBUMIN 3.7 GM/DL (3.4-5.0); DIRECT BILIRUBIN ADULT 2.3 MG/DL (0.0-0.2)
--- NOTE | 2017-07-20 15:30 | RADRPT ---
EXAM DATE/TIME: 07/20/2017 14:14 [place] COMPARISON: No previous studies available for comparison. INDICATIONS : Dyspnea. DOSE: 8.1 mCi Tc99m MAA IV 0.7 mCi Tc99m DTPA aerosol MEDICAL HISTORY : Chronic obstructive pulmonary disease. Congestive heart failure. Sickle cell. SURGICAL HISTORY : Cholecystectomy. ENCOUNTER: Initial ACUITY: 2 days PAIN SCALE: 0/10 LOCATION: chest TECHNIQUE: Following five minutes of tidal breathing of DTPA aerosol, planar images of the lungs were performed in eight projections. The patient was then injected with MAA, and eight-view perfusion scan was perf ormed. FINDINGS: The patient was not able to cooperate for the examination and only limited acquisitions were obtained . Only a single frontal perfusion acquisition was obtained, this revealing fairly homogeneous unremar kable perfusion seen where visualization not obscured by the cardiac silhouette. Visualized ventilati on is mildly heterogeneous without definite lobar defects present. CONCLUSION: Very limited examination secondary to patient's inability to cooperate for the exam. Risk category fo r pulmonary embolism can therefore not be estimated, however there are no specific findings to specif ically elevate likelihood of pulmonary embolism. Moo Rubalcava MD on July 20, 2017 at 15:23 Board Certified Radiologist. This report was verified electronically.
[2017-07-20 15:44] LABS: INDIRECT BILIRUBIN 1.6 MG/DL (0.0-0.8); TOTAL BILIRUBIN ADULT 3.9 MG/DL (0.2-1.0); TOTAL PROTEIN 9.2 GM/DL (6.4-8.2)
--- NOTE | 2017-07-20 15:49 | PD.CONS ---
HPI Service cardiology Consult Requested By Reason for Consult CHF Primary Care Physician Non-Staff History of Present Illness This is a 42 yo obese AAF with history of schizophrenia, chronic DVT and s/p IVC filter, sickle cell anemia and sleep apnea who presented to [place] ED with progressive SOB. She was found to be profoundly anemic with hemoglobin as low as 6.9; level has improved after transfusion. CXR shows cardiomegaly and possible pericardial effusion. VQ scan is within normal limits, EKG does not demonstrate concerning ST changes and troponin is negative. BNP elevated. Patient is not a good historian and RN states she had just been given morphine prior to consultation, unclear whether her mental disorder is playing a role as well. She denies chest pain and sob currently. Review of Systems Consitutional: DENIES: Fatigue, Fever, Chills, Weight gain, Weight loss Respiratory: DENIES: Cough, Snoring, Shortness of breath, Wheezing, Sputum production Cardiovascular: DENIES: Chest pain, Palpitations, Syncope, Tachycardia Gastrointestinal: DENIES: Nausea, Vomiting, Change in bowel habits, Reflux, Bloody stools, Melena Past Family Social History Allergies: Coded Allergies: butorphanol (Unverified Allergy, Severe, 07/18/17) chlorpromazine (Unverified Allergy, Severe, 07/18/17) hydromorphone (Unverified Allergy, Severe, 07/18/17) ketorolac (Unverified Allergy, Severe, 07/18/17) nalbuphine (Unverified Allergy, Severe, 07/18/17) penicillin G (Unverified Allergy, Severe, 07/18/17) Past Medical History Past Medical History Sickle cell anemia Sleep apnea CHF Schizophrenia Past Surgical History IVC filter Port placement Cholecystectomy Reported Medications Reported Meds & Active Scripts Active Reported Fentanyl Patch 72 HR (Fentanyl) 50 Mcg/Hr Patch 50 Mcg T-DERMAL Q72H Remove old patch when new one placed. [place] (Hydrocodone-Acetaminophen) 10-325 Mg Tab 1 Tab PO QID PRN Bactrim DS (Sulfamethoxazole-Trimethoprim) 800-160 Mg Tab 1 Tab PO DAILY Hydrea (Hydroxyurea) 500 Mg Cap 1,000 Mg PO DAILY Xarelto (Rivaroxaban) 20 Mg Tab 20 Mg PO DAILY Lasix (Furosemide) 20 Mg Tab 20 Mg PO DAILY Jadenu (Deferasirox) 360 Mg Tab 1,080 Mg PO DAILY Folic Acid 0.4 Mg Tab 1 Mg PO DAILY Benztropine (Benztropine Mesylate) 0.5 Mg Tab 1 Mg PO BID Citalopram (Citalopram Hydrobromide) 20 Mg Tab 20 Mg PO DAILY Paliperidone ER 3 Mg Tab 3 Mg PO DAILY Active Ordered Medications Current Medications Medications (Trade) Dose Ordered Sig/Gini Route Start Time Stop Time Status Last Admin (NS Flush) 2 ml UNSCH PRN IV FLUSH 07/18/17 20:30 (NS Flush) 2 ml BID IV FLUSH 07/18/17 21:00 07/20/17 07:53 (Tylenol) 650 mg Q4H PRN PO 07/18/17 20:30 (Zofran Inj) 4 mg Q6H PRN IVP 07/18/17 20:30 (Narcan Inj) 0.4 mg UNSCH PRN IV PUSH 07/18/17 20:30 (Milk Of Magnesia Liq) 30 ml Q12H PRN PO 07/18/17 20:30 (Senokot) 17.2 mg Q12H PRN PO 07/18/17 20:30 (Dulcolax Supp) 10 mg DAILY PRN RECTAL 07/18/17 20:30 (Lactulose Liq) 30 ml DAILY PRN PO 07/18/17 20:30 ([place] 10-325 Mg) 1 tab Q4H PRN PO 07/18/17 21:30 (Morphine Inj) 2 mg Q3H PRN IV PUSH 07/18/17 21:45 07/20/17 06:25 Miscellaneous Information Patient in critical care unit? Ass... Q361D .XX 07/18/17 21:45 (Chlorhexidine 2% Cloth) 3 pack DAILY@04 TOPICAL 07/19/17 04:00 07/23/17 04:01 07/20/17 03:45 (Chlorhexidine 2% Cloth) 3 pack UNSCH PRN TOPICAL 07/18/17 21:45 07/23/17 21:35 (Cogentin) 1 mg BID PO 07/19/17 09:00 07/20/17 07:53 (CeleXA) 20 mg DAILY PO 07/19/17 09:00 07/20/17 07:53 (Folate) 1 mg DAILY PO 07/19/17 09:00 07/20/17 07:51 (Hydrea) 1,000 mg DAILY PO 07/19/17 09:00 07/20/17 07:52 (Invega Er) 3 mg DAILY PO 07/19/17 09:00 07/20/17 07:51 (Lasix Inj) 20 mg BID@09,18 IV PUSH 07/19/17 09:00 07/20/17 07:51 (Xarelto) 20 mg DAILY PO 07/19/17 09:00 07/20/17 07:51 Patient Own Medication PT OWN MED: Deferasi... DAILY PO 07/19/17 11:00 07/20/17 07:49 Sodium Chloride 250 ml @ 15 mls/hr ONCE ONCE IV 07/20/17 01:00 07/20/17 17:39 07/20/17 03:45 Family History Unobtainable Social History Tobacco use: Denies Alcohol use: Denies Illicit drug use: Denies Physical Exam Vital Signs Vital Signs Date Time Temp Pulse Resp B/P (MAP) Pulse Ox O2 Delivery O2 Flow Rate FiO2 07/20/17 12:00 98 07/20/17 12:00 98.4 98 18 106/47 (66) 93 07/20/17 10:00 89 07/20/17 09:59 93 Nasal Cannula 4.00 07/20/17 09:00 91 07/20/17 08:00 98.2 91 16 100/51 (67) 95 07/20/17 06:50 99.0 85 16 117/81 91 07/20/17 06:30 16 07/20/17 06:00 86 07/20/17 04:35 94 45 07/20/17 04:00 99.1 93 17 107/55 (72) 94 07/20/17 04:00 93 07/20/17 03:50 99.1 92 31 105/57 94 07/20/17 02:00 99 07/20/17 01:56 93 45 07/20/17 00:00 96 07/20/17 00:00 98.1 96 16 114/61 (78) 93 07/19/17 22:00 93 07/19/17 21:13 96 Nasal Cannula 4.00 07/19/17 20:00 96 07/19/17 20:00 99.0 96 18 106/77 (87) 94 07/19/17 18:00 85 07/19/17 16:00 98.4 82 18 111/69 (83) 98 07/19/17 16:00 82 Physical Exam HEAD: Atraumatic. Normocephalic. EYES: Pupils equal and round. No scleral icterus. No injection or drainage. ENT: No nasal bleeding or discharge. Mucous membranes pink and moist. NECK: Trachea midline. No JVD. CARDIOVASCULAR: Regular rate and rhythm. no murmurs RESPIRATORY: No accessory muscle use. Clear to auscultation. Breath sounds equal bilaterally. GASTROINTESTINAL: Abdomen soft, non-tender, nondistended. Hepatic and splenic margins not palpable. MUSCULOSKELETAL: Extremities without clubbing, cyanosis, or edema. No obvious deformities. NEUROLOGICAL: Awake but appears sedated. oriented to place and person Laboratory Laboratory Tests Test 07/19/17 23:19 07/20/17 00:20 07/20/17 13:56 Blood Gas Puncture Site RT BRACHIAL Blood Gas Patient Temperature 98.6 Blood Gas HCO3 25 Blood Gas Base Excess -1.5 Blood Gas Oxygen Saturation 91 Arterial Blood pH 7.27 Arterial Blood Partial Pressure CO2 55 Arterial Blood Partial Pressure O2 91 Arterial Blood Oxygen Content 9.0 Arterial Blood Carboxyhemoglobin 3.5 Arterial Blood Methemoglobin 2.4 Blood Gas Hemoglobin 6.9 Oxygen Delivery Device NASAL CANNULA Blood Gas Liter Flow 4 Hemoglobin 6.9 8.4 Hematocrit 19.0 24.2 White Blood Count 9.9 Red Blood Count 2.72 Mean Corpuscular Volume 89.1 Mean Corpuscular Hemoglobin 30.8 Mean Corpuscular Hemoglobin Concent 34.6 Red Cell Distribution Width 21.2 Platelet Count 230 Mean Platelet Volume 9.1 Neutrophils (%) (Auto) 77.2 Lymphocytes (%) (Auto) 7.9 Monocytes (%) (Auto) 13.4 Eosinophils (%) (Auto) 0.4 Basophils (%) (Auto) 1.1 Neutrophils # (Auto) 7.7 Lymphocytes # (Auto) 0.8 Monocytes # (Auto) 1.3 Eosinophils # (Auto) 0.0 Basophils # (Auto) 0.1 CBC Comment AUTO DIFF Differential Total Cells Counted 100 Neutrophils % (Manual) 87 Lymphocytes % 8 Monocytes % 5 Neutrophils # (Manual) 8.6 Nucleated Red Blood Cells 12 Differential Comment FINAL DIFF MANUAL Platelet Estimate NORMAL Platelet Morphology Comment NORMAL Sickle Cells 1+ Target Cells 2+ Tear Drop Cells 1+ Ovalocytes 2+ Keratocytes 1+ Blood Urea Nitrogen 57 Creatinine 1.98 Random Glucose 111 Calcium Level 8.5 Sodium Level 134 Potassium Level 4.4 Chloride Level 99 Carbon Dioxide Level 28.4 Anion Gap 7 Estimat Glomerular Filtration Rate 33 Direct Bilirubin 2.3 Aspartate Amino Transf (AST/SGOT) 34 Alanine Aminotransferase (ALT/SGPT) 17 B-Type Natriuretic Peptide 726 Albumin 3.7 Result Diagram: 07/20/17 1356 07/20/17 1356 Imaging Last 48 hours Impressions Lung Scan-VQ Nuclear Medicine 07/20/17 0000 Signed Impressions: Service Date/Time: Thursday, July 20, 2017 14:14 - CONCLUSION: Very limited examination secondary to patient's inability to cooperate for the exam. Risk category for pulmonary embolism can therefore not be estimated, however there are no specific findings to specifically elevate likelihood of pulmonary embolism. Moo Rubalcava MD Assessment and Plan Problem List: (1) CHF (congestive heart failure) ICD Codes: I50.9 - Heart failure, unspecified Assessment and Plan This is a 42 yo obese AAF with history of schizophrenia, chronic DVT and s/p IVC filter, sickle cell anemia and sleep apnea who presented to [place] ED with progressive SOB. She was found to be profoundly anemic with hemoglobin as low as 6.9; level has improved after transfusion. CXR shows cardiomegaly and possible pericardial effusion. VQ scan is within normal limits, EKG does not demonstrate concerning ST changes and troponin is negative. BNP elevated CHF- await results of echo cont gentle diuresis creat 1.9 DVT- chronic, IVC in place. cont xarelto sickle cell anemia- Hgb improved. hematology following Zahra Adams Jul 20, 2017 15:49
--- NOTE | 2017-07-20 17:28 | ECHRPT ---
Indication: HEART FAILURE CONCLUSIONS Normal left ventricular size. Wall thickness is normal. The left ventricular systolic function is grossly normal on limited imaging. The right ventricle is moderately dilated. The right ventricular systoilc function is mildly decreased. The interatrial septum not well visualized. Mild thickening of the mitral valve leaflets. [id number] mitral valve regurgitation. There is moderate tricuspid regurgitation. The estimated pulmonary arterial pressure is 31.5 mmHg. Normal estimated pulmonary pressures. Mild to moderate pulmonary valve regurgitation. The inferior vena cava was not well visualized. There is a small pericardial effusion present. The pericardial effusion is primarily located posteriorly and laterally. BP: 132 / 62 HR: 93 Rhythm: Sinus MEASUREMENTS (Male / Female) Normal Values Technical Quality:Fair 2D ECHO LV Diastolic Diameter PLAX 4.6 cm 4.2 - 5.9 / 3.9 - 5.3 cm LV Systolic Diameter PLAX 3.0 cm IVS Diastolic Thickness 0.9 cm 0.6 - 1.0 / 0.6 - 0.9 cm LVPW Diastolic Thickness 0.9 cm 0.6 - 1.0 / 0.6 - 0.9 cm LV Relative Wall Thickness 0.4 RV Internal Dim ED PLAX 5.2 cm LVOT Diameter 1.5 cm Aortic Root Diameter 2.0 cm LA Systolic Diameter LX 2.8 cm 3.0 - 4.0 / 2.7 - 3.8 cm M-MODE AV Cusp Separation MM 1.7 cm DOPPLER AV Peak Velocity 251.0 cm/s AV Peak Gradient 25.2 mmHg AV Mean Gradient 13.0 mmHg AV Velocity Time Integral 43.8 cm LVOT Peak Velocity 179.0 cm/s LVOT Peak Gradient 12.8 mmHg LVOT Velocity Time Integral 34.4 cm AV Area Cont Eq vti 1.4 cm AV Area Cont Eq pk 1.3 cm Mitral E Point Velocity 118.0 cm/s Mitral A Point Velocity 100.0 cm/s Mitral E to A Ratio 1.2 TV Peak Velocity 197.0 cm/s TR Peak Velocity 232.0 cm/s TR Peak Gradient 21.5 mmHg Right Atrial Pressure 10.0 mmHg Pulmonary Artery Systolic Pressu 31.5 mmHg Right Ventricular Systolic Press 31.5 mmHg PV Peak Velocity 66.2 cm/s PV Peak Gradient 1.8 mmHg FINDINGS LEFT VENTRICLE Normal left ventricular size. Wall thickness is normal. The left ventricular systolic function is grossly normal on limited imaging. RIGHT VENTRICLE The right ventricle is moderately dilated. The right ventricular systoilc function is mildly decreased. LEFT ATRIUM The left atrial size is normal. RIGHT ATRIUM The right atrial size is normal. ATRIAL SEPTUM The interatrial septum not well visualized. AORTA The aortic root and proximal ascending aorta are normal in size on limited imaging. MITRAL VALVE Mild thickening of the mitral valve leaflets. [id number]-[id number] mitral valve regurgitation. AORTIC VALVE Trileaflet aortic valve. No aortic valve stenosis or regurgitation. TRICUSPID VALVE There is moderate tricuspid regurgitation. The estimated pulmonary arterial pressure is 31.5 mmHg. Normal estimated pulmonary pressures. PULMONARY VALVE Mild to moderate pulmonary valve regurgitation. VESSELS The inferior vena cava was not well visualized. PERICARDIUM There is a small pericardial effusion present. The pericardial effusion is primarily located posteriorly and laterally. Valerio Chew MD, FACC (Electronically Signed) Final Date:20 July 2017 17:27
--- NOTE | 2017-07-20 20:54 | MB ---
cc: REGAN SPEARS DATE OF CONSULTATION: 07/20/2017 REASON FOR CONSULTATION: Question TB. HISTORY OF PRESENT ILLNESS The patient is a 42-year-old -Chinese female with history of sickle cell anemia admitted with painful crisis. The patient was anemic upon presentation, hemoglobin at 5.1. The patient is presently not able to produce any history. An attempted VQ lung scan was partially successful which had to be terminated because of the patient's agitation. With treatment of agitation she is more sleepy and lethargic at this time. The patient has evidence of DVT. She is on Xarelto and has an IV filter in place. She has received her care previously in [place]. PAST MEDICAL HISTORY: 1. Sickle-cell anemia. 2. Obstructive sleep apnea. 3. Congestive heart failure. 4. Schizophrenia. 5. DVT of the right lower extremity. 6. She has a inferior vena cava filter in place. 7. [id number]-[id number] placement. 8. Previous cholecystectomy. ALLERGIES PENICILLIN. KETORLAC. HYDROMORPHONE. CHLOROPROMAZINE. BUTORPHANOL NALBUPHINE. MEDICATIONS: Prior to hospitalization. 1. Xarelto. 2. Hydrea. 3. Bactrim. 4. [place]. 5. Fentanyl. 6. Jadenu. 7. Lasix. 8. Folic acid. 9. Benztropine. 10. Citalopram. 11. Paliperidone. FAMILY HISTORY: Noncontributory. SOCIAL HISTORY The patient does not relate any. REVIEW OF SYSTEMS Essentially as per HPI and past history. PHYSICAL EXAMINATION: On exam the patient is obtunded, does not relate any history on oxygen therapy via nasal cannula at 4 liters. VITAL SIGNS: Temperature 98, pulse 88, respiratory rate 18, blood pressure 110/70. Oxygen saturation 91% on 4 liters oxygen nasal cannula. HEENT: Exam unremarkable. Eyes without icterus. Neck: No JVD, adenopathy, thyroid enlargement. Trachea central. Chest: Clear to percussion and auscultation. Cardiac: PMI not appreciated. S1-S2 audible, no murmur, no rub. Abdomen: Lax, bowel sounds audible. Extremities: Positive edema. LABORATORY DATA White count 9.9, hemoglobin 8.4, platelets at 230,000, sodium 134, potassium 4.4, serum ferritin level 2588, bilirubin 3.9. Arterial blood gas 07/19/2017 pH 727, PCO2 55, PO2 91. VQ lung scan very limited, the patient would not cooperate. No specific findings for pulmonary embolism. IMPRESSION 1. Respiratory failure. 2. Obstructive sleep apnea. 3. Sickle-cell anemia. 4. DVT. PLAN: The patient's respiratory failure is partially chronic, however, there is a definite acute component. Attempt BiPAP therapy has not been successful because of the patient's agitation. However, will be tried as tolerated. Meanwhile, continue oxygen therapy. Should the need arise, intubation, mechanical ventilation will be undertaken. A chest x-ray will be obtained in the a.m. Pulmonary toilet undertaken. Anticoagulant therapy will be continued in view of the patient's DVT. She is followed by hematology as well. I do thank you for asking me to partake in Ms. Marte's care. Regan Spears MD WWW/KELLY /6:53 PM /7:58 PM
[2017-07-21] VITALS (16 sets, daily range): BP systolic 111–121; BP diastolic 59–72; PULSE 79–95; RESP 10–20; TEMP 98.4–100; O2SAT 60–97
[2017-07-21] MEDS: CHLORHEXIDINE GLUCONATE 2 % 1 PACK (2 CLOTHS)(taper/protocol) TOPICAL SCH (04:00)
[2017-07-21] MEDS: MORPHINE SULFATE 2 MG/ML INJ IV PUSH PRN ×3 (04:19→14:12)
[2017-07-21 05:23] LABS: AUTOMATED NEUTROPHIL # 5.8 TH/MM3 (1.8-7.7); BASOPHIL # 0.1 TH/MM3 (0-0.2); BASOPHIL % 0.8 % (0.0-2.0); EOSINOPHIL # 0.1 TH/MM3 (0-0.4); EOSINOPHIL % 0.8 % (0.0-4.0); HEMATOCRIT 25.5 % (35.0-46.0); HEMOGLOBIN 8.8 GM/DL (11.6-15.3); LYMPHOCYTE # 0.9 TH/MM3 (1.0-4.8); MEAN CELL VOLUME 89.7 FL (80.0-100.0); MEAN CORPUSCULAR HGB CONC 34.6 % (32.0-36.0); MEAN PLATELET VOLUME 9.5 FL (7.0-11.0); MONO % 12.3 % (0.0-8.0); NEUT % 74.1 % (16.0-70.0); PLATELET COUNT 228 TH/MM3 (150-450); RED BLOOD COUNT 2.84 MIL/MM3 (4.00-5.30); RED CELL DISTRIBUTION WIDTH 22.3 % (11.6-17.2); WHITE BLOOD COUNT 7.9 TH/MM3 (4.0-11.0)
[2017-07-21 05:40] LABS: BICARBONATE 27.6 MEQ/L (21.0-32.0); CALCIUM 8.3 MG/DL (8.5-10.1); CREATININE 1.52 MG/DL (0.50-1.00)
--- NOTE | 2017-07-21 07:53 | HHI.PR ---
Subjective Remarks in no acute distress. but lethargic. still refusing BiPaP. afebrile. d/w the RN. Objective Vitals Vital Signs Date Time Temp Pulse Resp B/P (MAP) Pulse Ox O2 Delivery O2 Flow Rate FiO2 07/21/17 02:00 87 07/21/17 00:00 90 07/21/17 00:00 98.4 90 19 118/70 (86) 92 07/20/17 22:00 86 07/20/17 20:00 98.6 88 17 140/90 (107) 96 07/20/17 20:00 88 07/20/17 19:05 93 Nasal Cannula 4.00 07/20/17 18:00 89 07/20/17 16:00 98.7 97 16 116/74 (88) 94 07/20/17 16:00 97 07/20/17 14:00 91 07/20/17 12:00 98 07/20/17 12:00 98.4 98 18 106/47 (66) 93 07/20/17 10:00 89 07/20/17 09:59 93 Nasal Cannula 4.00 07/20/17 09:00 91 07/20/17 08:00 98.2 91 16 100/51 (67) 95 I/O 07/20/17 07/20/17 07/20/17 07/21/17 07/21/17 07/21/17 07:00 15:00 23:00 07:00 15:00 23:00 Intake Total 980 ml 440 ml 900 ml Output Total 1100 ml 851 ml Balance -120 ml 440 ml 49 ml Intake Oral 280 ml 600 ml Packed Cells 700 ml 400 ml 300 ml Blood Product IV Normal Saline Flush 40 ml Output Urine Total 1100 ml 850 ml Stool Total 1 ml # Bowel Movements 0 Result Diagram: 07/21/17 0430 07/21/17 0430 Imaging Last Impressions Lung Scan-VQ Nuclear Medicine 07/20/17 0000 Signed Impressions: Service Date/Time: Thursday, July 20, 2017 14:14 - CONCLUSION: Very limited examination secondary to patient's inability to cooperate for the exam. Risk category for pulmonary embolism can therefore not be estimated, however there are no specific findings to specifically elevate likelihood of pulmonary embolism. Moo Rubalcava MD Objective Remarks GENERAL: lethargic- in no apparent distress. CARDIOVASCULAR: Regular rate and irregular rhythm without murmurs, gallops, or rubs. RESPIRATORY: bilateral rales. GASTROINTESTINAL: Abdomen soft, non-tender, nondistended. Normal, active bowel sounds MUSCULOSKELETAL: Extremities without clubbing, cyanosis, or edema. NEURO: lethargic. Medications and IVs Inpatient Medications Acetaminophen (Tylenol) 650 mg Q4H PRN PO TEMP > 100.4; Start 07/18/17 at 20:30 Acetaminophen/ Hydrocodone Bitart ([place] 5-325 Mg) 1 tab Q4H PRN PO pain 1-5; Start 07/18/17 at 21:30; Stop 07/19/17 at 09:41; Status DC Acetaminophen/ Hydrocodone Bitart ([place] 10-325 Mg) 1 tab Q4H PRN PO PAIN 1-5; Start 07/18/17 at 21:30 Benztropine Mesylate (Cogentin) 1 mg BID PO Last administered on 07/20/17at 20:16 ; Start 07/19/17 at 09:00 Bisacodyl (Dulcolax Supp) 10 mg DAILY PRN RECTAL SEVERE CONSITIPATION; Start at 20:30 Chlorhexidine Gluconate (Chlorhexidine 2% Cloth) 3 pack UNSCH PRN TOPICAL HYGIENIC CARE; Start 07/18/17 at 21:45; Stop 07/23/17 at 21:35 Citalopram Hydrobromide (CeleXA) 20 mg DAILY PO Last administered on 07/20/17at 07:53; Start 07/19/17 at 09:00 Folic Acid (Folate) 1 mg DAILY PO Last administered on 07/20/17at 07:51; Start at 09:00 Furosemide (Lasix Inj) 20 mg ONCE ONCE IV PUSH Last administered on 07/20/17at 03:44; Start 07/20/17 at 01:00; Stop 07/20/17 at 01:01; Status DC Hydroxyurea (Hydrea) 1,000 mg DAILY PO Last administered on 07/20/17at 07:52; Start 07/19/17 at 09:00 Lactulose (Lactulose Liq) 30 ml DAILY PRN PO SEVERE CONSITIPATION; Start at 20:30 Magnesium Hydroxide (Milk Of Magnesia Liq) 30 ml Q12H PRN PO Mild constipation ; Start 07/18/17 at 20:30 Miscellaneous Information Patient in critical care unit? Ass... Q361D .XX ; Start 07/18/17 at 21:45 Morphine Sulfate (Morphine Inj) 2 mg Q3H PRN IV PUSH PAIN 6-10 Last administered on 07/21/17at 04:19; Start 07/18/17 at 21:45 Naloxone HCl (Narcan Inj) 0.4 mg UNSCH PRN IV PUSH SEE LABEL COMMENTS; Start at 20:30 Non-Formulary Medication 1,080 mg DAILY PO ; Start 07/19/17 at 09:00; Stop at 09:00; Status DC Ondansetron HCl (Zofran Inj) 4 mg Q6H PRN IVP NAUSEA OR VOMITING; Start at 20:30 Paliperidone Palmitate (Invega Er) 3 mg DAILY PO Last administered on 07/20/17at 07:51; Start 07/19/17 at 09:00 Patient Own Medication PT OWN MED: Deferasi... DAILY PO Last administered on 07/20/17at 07:49; Start 07/19/17 at 11:00 Rivaroxaban (Xarelto) 20 mg DAILY PO Last administered on 07/20/17at 07:51; Start 07/19/17 at 09:00 Sennosides (Senokot) 17.2 mg Q12H PRN PO Moderate constipation; Start 07/18/17 at 20:30 Sodium Chloride 250 ml @ 15 mls/hr ONCE ONCE IV Last administered on at 03:45; Start 07/20/17 at 01:00; Stop 07/20/17 at 17:39; Status DC Sodium Chloride (NS Flush) 2 ml BID IV FLUSH Last administered on 07/20/17at 20: 17; Start 07/18/17 at 21:00 A/P Problem List: (1) Symptomatic anemia ICD Code: D64.9 - Anemia, unspecified (2) CHF (congestive heart failure) ICD Code: I50.9 - Heart failure, unspecified (3) Sickle cell anemia ICD Code: D57.1 - Sickle-cell disease without crisis Assessment and Plan Acute Symptomatic anemia, on chronic sickle cell -Transfused with PRBC. -H/H has improved. -Pain management with norco; keep on IV Morphine for ' breakthrough pain'. -continue Hydroxyurea and Folic acid -hematology following. acute hypercapnic respiratory failure sleep apnea acute on chronic diastolic CHF -Fluid restriction -BiPaP as needed- although the patient refusing. -repeat ABG today. -cardiology and pulmonary following. Dyspnea, suspect due to CHF and anemia history of DVT D dimer elevated -VQ scan -limited exam but with no definite evidence of PE. -continue Xarelto -IVC filter in place -hematology following. Acute kidney injury on possibly chronic kidney disease -renal function improving. -monitor creatine -Avoid nephrotoxins DVT prophylaxis:resume Xarelto needs to be monitored closely; will keep in ICU for now. d/w the RN. Problem Qualifiers (1) Sickle cell anemia: Qualified Codes: D57.00 - Hb-SS disease with crisis, unspecified Sajan Hills MD Jul 21, 2017 07:53
[2017-07-21 08:29] LABS: BASOPHILS 1 % (0-2); CORRECTED NUCLEATED RBC 25 /100 WBC (0-0); LYMPHOCYTES 20 % (9-44); MONOCYTES 10 % (0-8); NEUTROPHIL # MANUAL DIFF 5.4 TH/MM3 (1.8-7.7); NUCLEATED RED BLOOD CELL 25 (0-0); POLYS (SEG NEUTROPHILS) 68 % (16-70); TARGET CELLS 2+ (NORMAL)
[2017-07-21 08:31] LABS: ACANTHOCYTES OCC (NORMAL); HOWELL-JOLLY BODIES PRESENT (NONE SEEN)
[2017-07-21 08:32] LABS: SICKLE CELLS 1+ (NORMAL)
--- NOTE | 2017-07-21 08:59 | PD.CARD.PN ---
Subjective Subjective Remarks Patient is not a great historian. She reports shortness of breath is unchanged. Does have lower extremity swelling. She can't really quantify how her urine output is been. (Jona Gautam) Objective Medications Current Medications Medications (Trade) Dose Ordered Sig/Gini Route Start Time Stop Time Status Last Admin (NS Flush) 2 ml UNSCH PRN IV FLUSH 07/18/17 20:30 (NS Flush) 2 ml BID IV FLUSH 07/18/17 21:00 07/20/17 20:17 (Tylenol) 650 mg Q4H PRN PO 07/18/17 20:30 (Zofran Inj) 4 mg Q6H PRN IVP 07/18/17 20:30 (Narcan Inj) 0.4 mg UNSCH PRN IV PUSH 07/18/17 20:30 (Milk Of Magnesia Liq) 30 ml Q12H PRN PO 07/18/17 20:30 (Senokot) 17.2 mg Q12H PRN PO 07/18/17 20:30 (Dulcolax Supp) 10 mg DAILY PRN RECTAL 07/18/17 20:30 (Lactulose Liq) 30 ml DAILY PRN PO 07/18/17 20:30 ([place] 10-325 Mg) 1 tab Q4H PRN PO 07/18/17 21:30 (Morphine Inj) 2 mg Q3H PRN IV PUSH 07/18/17 21:45 07/21/17 04:19 Miscellaneous Information Patient in critical care unit? Ass... Q361D .XX 07/18/17 21:45 (Chlorhexidine 2% Cloth) 3 pack DAILY@04 TOPICAL 07/19/17 04:00 07/23/17 04:01 07/21/17 04:00 (Chlorhexidine 2% Cloth) 3 pack UNSCH PRN TOPICAL 07/18/17 21:45 07/23/17 21:35 (Cogentin) 1 mg BID PO 07/19/17 09:00 07/20/17 20:16 (CeleXA) 20 mg DAILY PO 07/19/17 09:00 07/20/17 07:53 (Folate) 1 mg DAILY PO 07/19/17 09:00 07/20/17 07:51 (Hydrea) 1,000 mg DAILY PO 07/19/17 09:00 07/20/17 07:52 (Invega Er) 3 mg DAILY PO 07/19/17 09:00 07/20/17 07:51 (Lasix Inj) 20 mg BID@18 IV PUSH 07/19/17 09:00 07/20/17 18:53 (Xarelto) 20 mg DAILY PO 07/19/17 09:00 07/20/17 07:51 Patient Own Medication PT OWN MED: Deferasi... DAILY PO 07/19/17 11:00 07/20/17 07:49 ([place] 10-325 Mg) 2 tab Q4H PRN PO 07/21/17 08:00 Vital Signs / I&O Vital Signs Date Time Temp Pulse Resp B/P (MAP) Pulse Ox O2 Delivery O2 Flow Rate FiO2 07/21/17 06:00 82 07/21/17 04:00 98.6 83 10 121/67 (85) 96 07/21/17 04:00 83 07/21/17 02:00 87 07/21/17 00:00 90 07/21/17 00:00 98.4 90 19 118/70 (86) 92 07/20/17 22:00 86 07/20/17 20:00 98.6 88 17 140/90 (107) 96 07/20/17 20:00 88 07/20/17 19:05 93 Nasal Cannula 4.00 07/20/17 18:00 89 07/20/17 16:00 98.7 97 16 116/74 (88) 94 07/20/17 16:00 97 07/20/17 14:00 91 07/20/17 12:00 98 07/20/17 12:00 98.4 98 18 106/47 (66) 93 07/20/17 10:00 89 07/20/17 09:59 93 Nasal Cannula 4.00 07/20/17 09:00 91 I/O 07/20/17 07/20/17 07/20/17 07/21/17 07/21/17 07/21/17 07:00 15:00 23:00 07:00 15:00 23:00 Intake Total 980 ml 440 ml 900 ml 400 ml Output Total 1100 ml 851 ml 700 ml Balance -120 ml 440 ml 49 ml -300 ml Intake Oral 280 ml 600 ml 400 ml Packed Cells 700 ml 400 ml 300 ml Blood Product IV Normal Saline Flush 40 ml Output Urine Total 1100 ml 850 ml 700 ml Stool Total 1 ml 0 ml # Bowel Movements 0 Physical Exam GENERAL: Well-developed well-nourished. Normal deliveries. In no acute distress. NECK: No carotid bruits. No JVD. CARDIOVASCULAR: Regular rate and rhythm. No murmur appreciated. RESPIRATORY: No accessory muscle use. Clear to auscultation. Coarse breath sounds. MUSCULOSKELETAL: No clubbing or cyanosis. 2+ lower extremity edema. NEUROLOGICAL: Awake and alert. Normal speech. Laboratory Laboratory Tests Test 07/20/17 13:56 07/21/17 04:30 White Blood Count 9.9 TH/MM3 7.9 TH/MM3 Red Blood Count 2.72 MIL/MM3 2.84 MIL/MM3 Hemoglobin 8.4 GM/DL 8.8 GM/DL Hematocrit 24.2 % 25.5 % Mean Corpuscular Volume 89.1 FL 89.7 FL Mean Corpuscular Hemoglobin 30.8 PG 31.0 PG Mean Corpuscular Hemoglobin Concent 34.6 % 34.6 % Red Cell Distribution Width 21.2 % 22.3 % Platelet Count 230 TH/MM3 228 TH/MM3 Mean Platelet Volume 9.1 FL 9.5 FL Neutrophils (%) (Auto) 77.2 % 74.1 % Lymphocytes (%) (Auto) 7.9 % 12.0 % Monocytes (%) (Auto) 13.4 % 12.3 % Eosinophils (%) (Auto) 0.4 % 0.8 % Basophils (%) (Auto) 1.1 % 0.8 % Neutrophils # (Auto) 7.7 TH/MM3 5.8 TH/MM3 Lymphocytes # (Auto) 0.8 TH/MM3 0.9 TH/MM3 Monocytes # (Auto) 1.3 TH/MM3 1.0 TH/MM3 Eosinophils # (Auto) 0.0 TH/MM3 0.1 TH/MM3 Basophils # (Auto) 0.1 TH/MM3 0.1 TH/MM3 CBC Comment AUTO DIFF AUTO DIFF Differential Total Cells Counted 100 100 Neutrophils % (Manual) 87 % 68 % Lymphocytes % 8 % 20 % Monocytes % 5 % 10 % Neutrophils # (Manual) 8.6 TH/MM3 5.4 TH/MM3 Nucleated Red Blood Cells 12 /100 WBC 25 /100 WBC Differential Comment FINAL DIFF MANUAL FINAL DIFF MANUAL Platelet Estimate NORMAL NORMAL Platelet Morphology Comment NORMAL NORMAL Sickle Cells 1+ 1+ Target Cells 2+ 2+ Tear Drop Cells 1+ Ovalocytes 2+ Keratocytes 1+ Blood Urea Nitrogen 57 MG/DL 56 MG/DL Creatinine 1.98 MG/DL 1.52 MG/DL Random Glucose 111 MG/DL 80 MG/DL Calcium Level 8.5 MG/DL 8.3 MG/DL Sodium Level 134 MEQ/L 135 MEQ/L Potassium Level 4.4 MEQ/L 4.3 MEQ/L Chloride Level 99 MEQ/L 100 MEQ/L Carbon Dioxide Level 28.4 MEQ/L 27.6 MEQ/L Anion Gap 7 MEQ/L 7 MEQ/L Estimat Glomerular Filtration Rate 33 ML/MIN 45 ML/MIN Ferritin 2588 NG/ML Total Bilirubin 3.9 MG/DL Direct Bilirubin 2.3 MG/DL Indirect Bilirubin 1.6 MG/DL Aspartate Amino Transf (AST/SGOT) 34 U/L Alanine Aminotransferase (ALT/SGPT) 17 U/L Alkaline Phosphatase 112 U/L B-Type Natriuretic Peptide 726 PG/ML Total Protein 9.2 GM/DL Albumin 3.7 GM/DL Eosinophils % 1 % Basophils % 1 % [place] Bodies PRESENT Acanthocytes OCC Red Cell Morphology Comment Imaging Last Impressions Lung Scan-VQ Nuclear Medicine 07/20/17 0000 Signed Impressions: Service Date/Time: Thursday, July 20, 2017 14:14 - CONCLUSION: Very limited examination secondary to patient's inability to cooperate for the exam. Risk category for pulmonary embolism can therefore not be estimated, however there are no specific findings to specifically elevate likelihood of pulmonary embolism. Moo Rubalcava MD (Jona Gautam) Assessment and Plan Problem List: (1) CHF (congestive heart failure) ICD Codes: I50.9 - Heart failure, unspecified Status: Acute Assessment and Plan This is a 42 yo obese AAF with history of schizophrenia, chronic DVT and s/p IVC filter, sickle cell anemia and sleep apnea who presented with progressive SOB. She was found to be profoundly anemic with hemoglobin as low as 6.9; level has improved after transfusion. CXR shows cardiomegaly and possible pericardial effusion. VQ scan with no evidence of PE, EKG does not demonstrate concerning ST changes and troponin is negative. BNP 726. Acute diastolic CHF: Secondary to transfusions? Echocardiogram with grossly normal systolic function, [id number] MR, moderate TR, mild to moderate GA, small pericardial effusion. cont gentle diuresis, renal function improving DVT: chronic, IVC in place. cont xarelto sickle cell anemia: Hgb improved after transfusion 5 units PRBCs. hematology following. (Jona Gautam) Assessment and Plan diastolic CHF due to volume overload gentle diuresis as Cr allows will sign off call with further questions (Valerio Chew MD) Problem Qualifiers (1) CHF (congestive heart failure): Qualified Codes: I50.31 - Acute diastolic (congestive) heart failure Jona Gautam Jul 21, 2017 08:59 Valerio Chew MD Jul 21, 2017 13:49
[2017-07-21] MEDS: BENZTROPINE MESYLATE 1 MG TAB PO SCH ×2 (09:27→21:24)
[2017-07-21] MEDS: RIVAROXABAN 20 MG TAB PO SCH (09:27)
[2017-07-21] MEDS: CITALOPRAM HYDROBROMIDE 20 MG TAB PO SCH (09:27)
[2017-07-21] MEDS: FOLIC ACID 1 MG TAB PO SCH (09:27)
[2017-07-21] MEDS: HYDROXYUREA 500 MG CAP PO SCH (09:27)
[2017-07-21] MEDS: PALIPERIDONE ER 3 MG TAB PO SCH (09:28)
[2017-07-21] MEDS: SODIUM CHLORIDE 0.9% FLUSH 10 ML FLUSH IV FLUSH SCH ×2 (09:29→21:24)
[2017-07-21] MEDS: FUROSEMIDE 20 MG/2 ML VIAL IV PUSH SCH ×2 (09:29→18:00)
[2017-07-21] MEDS: DEFERASIROX 360 MG PO SCH (09:30)
--- NOTE | 2017-07-21 13:12 | PD.ONC.PN ---
Subjective Subjective Remarks Afebrile overnight. Patient with s/o at bedside. she is requesting corn starch and eating lunch. she denies any pain at present, but per the nurse, was asking for pain medication just five minutes ago. s/o at bedside states that is d/t her psychiatric disorder. he states she does not always correctly vocalize her pain. Objective Data Date Time Temp Pulse Resp B/P (MAP) Pulse Ox O2 Delivery O2 Flow Rate FiO2 07/21/17 10:00 87 07/21/17 08:00 98.5 87 18 117/66 (83) 94 07/21/17 08:00 87 07/21/17 06:00 82 07/21/17 04:00 98.6 83 10 121/67 (85) 96 07/21/17 04:00 83 07/21/17 02:00 87 07/21/17 00:00 90 07/21/17 00:00 98.4 90 19 118/70 (86) 92 07/20/17 22:00 86 07/20/17 20:00 98.6 88 17 140/90 (107) 96 07/20/17 20:00 88 07/20/17 19:05 93 Nasal Cannula 4.00 07/20/17 18:00 89 07/20/17 16:00 98.7 97 16 116/74 (88) 94 07/20/17 16:00 97 07/20/17 14:00 91 07/21/17 07/21/17 07/21/17 07:00 15:00 23:00 Intake Total 400 ml Output Total 700 ml Balance -300 ml Result Diagram: 07/21/17 0430 07/21/17 0430 Laboratory Results Laboratory Tests Test 07/20/17 13:56 07/21/17 04:30 White Blood Count 9.9 TH/MM3 7.9 TH/MM3 Red Blood Count 2.72 MIL/MM3 2.84 MIL/MM3 Hemoglobin 8.4 GM/DL 8.8 GM/DL Hematocrit 24.2 % 25.5 % Mean Corpuscular Volume 89.1 FL 89.7 FL Mean Corpuscular Hemoglobin 30.8 PG 31.0 PG Mean Corpuscular Hemoglobin Concent 34.6 % 34.6 % Red Cell Distribution Width 21.2 % 22.3 % Platelet Count 230 TH/MM3 228 TH/MM3 Mean Platelet Volume 9.1 FL 9.5 FL Neutrophils (%) (Auto) 77.2 % 74.1 % Lymphocytes (%) (Auto) 7.9 % 12.0 % Monocytes (%) (Auto) 13.4 % 12.3 % Eosinophils (%) (Auto) 0.4 % 0.8 % Basophils (%) (Auto) 1.1 % 0.8 % Neutrophils # (Auto) 7.7 TH/MM3 5.8 TH/MM3 Lymphocytes # (Auto) 0.8 TH/MM3 0.9 TH/MM3 Monocytes # (Auto) 1.3 TH/MM3 1.0 TH/MM3 Eosinophils # (Auto) 0.0 TH/MM3 0.1 TH/MM3 Basophils # (Auto) 0.1 TH/MM3 0.1 TH/MM3 CBC Comment AUTO DIFF AUTO DIFF Differential Total Cells Counted 100 100 Neutrophils % (Manual) 87 % 68 % Lymphocytes % 8 % 20 % Monocytes % 5 % 10 % Neutrophils # (Manual) 8.6 TH/MM3 5.4 TH/MM3 Nucleated Red Blood Cells 12 /100 WBC 25 /100 WBC Differential Comment FINAL DIFF MANUAL FINAL DIFF MANUAL Platelet Estimate NORMAL NORMAL Platelet Morphology Comment NORMAL NORMAL Sickle Cells 1+ 1+ Target Cells 2+ 2+ Tear Drop Cells 1+ Ovalocytes 2+ Keratocytes 1+ Blood Urea Nitrogen 57 MG/DL 56 MG/DL Creatinine 1.98 MG/DL 1.52 MG/DL Random Glucose 111 MG/DL 80 MG/DL Calcium Level 8.5 MG/DL 8.3 MG/DL Sodium Level 134 MEQ/L 135 MEQ/L Potassium Level 4.4 MEQ/L 4.3 MEQ/L Chloride Level 99 MEQ/L 100 MEQ/L Carbon Dioxide Level 28.4 MEQ/L 27.6 MEQ/L Anion Gap 7 MEQ/L 7 MEQ/L Estimat Glomerular Filtration Rate 33 ML/MIN 45 ML/MIN Ferritin 2588 NG/ML Total Bilirubin 3.9 MG/DL Direct Bilirubin 2.3 MG/DL Indirect Bilirubin 1.6 MG/DL Aspartate Amino Transf (AST/SGOT) 34 U/L Alanine Aminotransferase (ALT/SGPT) 17 U/L Alkaline Phosphatase 112 U/L B-Type Natriuretic Peptide 726 PG/ML Total Protein 9.2 GM/DL Albumin 3.7 GM/DL Eosinophils % 1 % Basophils % 1 % [place] Bodies PRESENT Acanthocytes OCC Red Cell Morphology Comment Administered Medications Medications (Trade) Dose Ordered Sig/Gini Route PRN Reason Start Time Stop Time Status Last Admin Dose Admin Sodium Chloride (NS Flush) 2 ml BID IV FLUSH 07/18/17 21:00 07/21/17 09:29 Morphine Sulfate (Morphine Inj) 2 mg Q3H PRN IV PUSH BREAKTHROUGH PAIN 07/18/17 21:45 07/21/17 09:43 Chlorhexidine Gluconate (Chlorhexidine 2% Cloth) 3 pack DAILY@04 TOPICAL 07/19/17 04:00 07/23/17 04:01 07/21/17 04:00 Benztropine Mesylate (Cogentin) 1 mg BID PO 07/19/17 09:00 07/21/17 09:27 Citalopram Hydrobromide (CeleXA) 20 mg DAILY PO 07/19/17 09:00 07/21/17 09:27 Folic Acid (Folate) 1 mg DAILY PO 07/19/17 09:00 07/21/17 09:27 Hydroxyurea (Hydrea) 1,000 mg DAILY PO 07/19/17 09:00 07/21/17 09:27 Paliperidone Palmitate (Invega Er) 3 mg DAILY PO 07/19/17 09:00 07/21/17 09:28 Furosemide (Lasix Inj) 20 mg BID@ IV PUSH 07/19/17 09:00 07/21/17 09:29 Rivaroxaban (Xarelto) 20 mg DAILY PO 07/19/17 09:00 07/21/17 09:27 Patient Own Medication PT OWN MED: Deferasi... DAILY PO 07/19/17 11:00 07/21/17 09:30 Objective Remarks GENERAL: Obese, pleasant female, sitting up in bed, eating lunch. she appears comfortable and in nad. SKIN: Warm and dry. HEAD: Normocephalic. EYES: No injection or drainage. NECK: Supple, trachea midline. CARDIOVASCULAR: Regular rate and rhythm RESPIRATORY: anterior resendiz, scattered rhonchi. on O2 via [place] GASTROINTESTINAL: Abdomen soft, non-tender, nondistended. MUSCULOSKELETAL: No cyanosis NEURO: awake and alert, normal speech. Assessment/Plan Problem List: (1) Sickle cell anemia ICD Codes: D57.1 - Sickle-cell disease without crisis Plan: 07/21: ferritin elevated, patient takes Jadenu outpatient per s/o at bedside. would continue pain management, judicious use of IVF. monitor hgb/ retic count/bilirubin. --CXR-->shows enlargement of the cardiac silhouette. follows with a cheese pancake roller in [place]. (2) CHF (congestive heart failure) ICD Codes: I50.9 - Heart failure, unspecified Status: Acute Plan: --cardiology following (3) Iron overload ICD Codes: E83.19 - Other disorders of iron metabolism Plan: --takes Jadenu outpatient Assessment 42y/o female with sicle cell anemia admitted in vasoocclusive crises. h/o DVT in the right lower extremity-->on Xarelto and had an IVC filter placed. h/o Sickle-cell anemia with multiple painful crises. Sleep apnea. Congestive heart failure. Schizophrenia. Attending Statement The exam, history, and the medical decision-making described in the above note were completed with the assistance of the mid-level provider. I reviewed and agree with the findings presented. I attest that I had a [id number] encounter with the patient on the same day, and personally performed and documented my assessment and findings in the medical record. No new c/o H/H stable. has transfusion hemosiderosis. Continue jadenu Problem Qualifiers (1) Sickle cell anemia: Qualified Codes: D57.00 - Hb-SS disease with crisis, unspecified (2) CHF (congestive heart failure): Qualified Codes: I50.31 - Acute diastolic (congestive) heart failure Elsy Pedraza Jul 21, 2017 13:12 Nina Villa MD Jul 21, 2017 17:16
[2017-07-21 14:11] LABS: ALBUMIN 3.9 GM/DL (3.4-5.0); DIRECT BILIRUBIN ADULT 1.9 MG/DL (0.0-0.2)
[2017-07-21 14:12] LABS: INDIRECT BILIRUBIN 1.8 MG/DL (0.0-0.8); TOTAL BILIRUBIN ADULT 3.7 MG/DL (0.2-1.0); TOTAL PROTEIN 9.5 GM/DL (6.4-8.2)
--- NOTE | 2017-07-21 15:18 | HHI.PR ---
Addendum To [facility] Progress Not Reason for addendum: Additonal documentation (ABG was reviewed and case was d/ w RN and . patient will be transferred to industrial automation specialist.) Sajan Hills MD Jul 21, 2017 15:18
--- NOTE | 2017-07-21 15:56 | PD.CONS ---
HPI Service Critical Care Medicine Consult Requested By Dr. Hills Reason for Consult Hypoxic respiratory insufficiency, severe AMBAR Primary Care Physician Non-Staff History of Present Illness This is a 42 y/o obese female with a history of sickle cell anemia, schizophrenia, sleep apnea on a DVT, with IVC filter and CHF that presented to the [place] ED with progressive dyspnea. She was found to have a hgb of 5.1 and transferred to [facility]. The patient was transfused, imaging studies revealed cardiomegaly and a pericardial effusion at that time. Significant other states patient has been short of breath for a few months and was seen previously one month ago at [facility]. He states she was found to have a DVT in her right lower extremity and placed on Xarelto with an IVC filter placed. The patient's significant other, POA provided information that she has sleep apnea but due to her schizophrenia and claustrophobia she is unable to wear a CPAP at home. She was found to be profoundly anemic with hemoglobin as low as 6.9; level has improved after transfusion. CXR shows cardiomegaly and possible pericardial effusion. VQ scan is within normal limits, EKG did not demonstrate concerning ST changes and troponin is negative. BNP elevated. [facility], consultations were obtained by cardiology pulmonology and pulmonology. Over the last 24 hours the patient continued have respiratory insufficiency and continued to refuse to wear CPAP in the setting of severe obstructive sleep apnea. Critical care medicine was consulted for continued respiratory decompensation and possible intubation. Review of Systems Except as stated in HPI: all other systems reviewed are Neg Past Family Social History Past Medical History Sickle cell anemia Sleep apnea CHF Schizophrenia Past Surgical History IVC filter Port placement Cholecystectomy Reported Medications Reported Meds & Active Scripts Active Reported Fentanyl Patch 72 HR (Fentanyl) 50 Mcg/Hr Patch 50 Mcg T-DERMAL Q72H Remove old patch when new one placed. [place] (Hydrocodone-Acetaminophen) 10-325 Mg Tab 1 Tab PO QID PRN Bactrim DS (Sulfamethoxazole-Trimethoprim) 800-160 Mg Tab 1 Tab PO DAILY Hydrea (Hydroxyurea) 500 Mg Cap 1,000 Mg PO DAILY Xarelto (Rivaroxaban) 20 Mg Tab 20 Mg PO DAILY Lasix (Furosemide) 20 Mg Tab 20 Mg PO DAILY Jadenu (Deferasirox) 360 Mg Tab 1,080 Mg PO DAILY Folic Acid 0.4 Mg Tab 1 Mg PO DAILY Benztropine (Benztropine Mesylate) 0.5 Mg Tab 1 Mg PO BID Citalopram (Citalopram Hydrobromide) 20 Mg Tab 20 Mg PO DAILY Paliperidone ER 3 Mg Tab 3 Mg PO DAILY Allergies: Coded Allergies: butorphanol (Unverified Allergy, Severe, 07/18/17) chlorpromazine (Unverified Allergy, Severe, 07/18/17) hydromorphone (Unverified Allergy, Severe, 07/18/17) ketorolac (Unverified Allergy, Severe, 07/18/17) nalbuphine (Unverified Allergy, Severe, 07/18/17) penicillin G (Unverified Allergy, Severe, 07/18/17) Physical Exam Vital Signs Vital Signs Date Time Temp Pulse Resp B/P (MAP) Pulse Ox O2 Delivery O2 Flow Rate FiO2 07/21/17 10:00 87 07/21/17 08:00 98.5 87 18 117/66 (83) 94 07/21/17 08:00 87 07/21/17 06:00 82 07/21/17 04:00 98.6 83 10 121/67 (85) 96 07/21/17 04:00 83 07/21/17 02:00 87 07/21/17 00:00 90 07/21/17 00:00 98.4 90 19 118/70 (86) 92 07/20/17 22:00 86 07/20/17 20:00 98.6 88 17 140/90 (107) 96 07/20/17 20:00 88 07/20/17 19:05 93 Nasal Cannula 4.00 07/20/17 18:00 89 07/20/17 16:00 98.7 97 16 116/74 (88) 94 07/20/17 16:00 97 Physical Exam GENERAL: This is a morbidly obese -[place] female confused agitated currently refusing care placement on BiPAP SKIN: Warm and dry. HEAD: Atraumatic. Normocephalic. EYES: Pupils equal and round. No scleral icterus. No injection or drainage. ENT: No nasal bleeding or discharge. Mucous membranes pink and moist. NECK: Trachea midline. Unable to assess JVD secondary to body habitus. CARDIOVASCULAR: Normal rate, regular rhythm. RESPIRATORY: No accessory muscle use. Clear to auscultation. Breath sounds equal bilaterally. GASTROINTESTINAL: Abdomen soft, obese ,non-tender, nondistended. No guarding. MUSCULOSKELETAL: Extremities without clubbing, cyanosis, bilateral lower extremity edema right greater than left. NEUROLOGICAL: Awake and alert, agitated. RASS 0. No gross focal/sensory deficits. Follows commands in all 4 extremities. Laboratory Laboratory Tests Test 07/21/17 04:30 07/21/17 13:48 White Blood Count 7.9 Red Blood Count 2.84 Hemoglobin 8.8 Hematocrit 25.5 Mean Corpuscular Volume 89.7 Mean Corpuscular Hemoglobin 31.0 Mean Corpuscular Hemoglobin Concent 34.6 Red Cell Distribution Width 22.3 Platelet Count 228 Mean Platelet Volume 9.5 Neutrophils (%) (Auto) 74.1 Lymphocytes (%) (Auto) 12.0 Monocytes (%) (Auto) 12.3 Eosinophils (%) (Auto) 0.8 Basophils (%) (Auto) 0.8 Neutrophils # (Auto) 5.8 Lymphocytes # (Auto) 0.9 Monocytes # (Auto) 1.0 Eosinophils # (Auto) 0.1 Basophils # (Auto) 0.1 CBC Comment AUTO DIFF Differential Total Cells Counted 100 Neutrophils % (Manual) 68 Lymphocytes % 20 Monocytes % 10 Eosinophils % 1 Basophils % 1 Neutrophils # (Manual) 5.4 Nucleated Red Blood Cells 25 Differential Comment FINAL DIFF MANUAL Platelet Estimate NORMAL Platelet Morphology Comment NORMAL Sickle Cells 1+ Target Cells 2+ [place] Bodies PRESENT Acanthocytes OCC Red Cell Morphology Comment Blood Urea Nitrogen 56 Creatinine 1.52 Random Glucose 80 Calcium Level 8.3 Sodium Level 135 Potassium Level 4.3 Chloride Level 100 Carbon Dioxide Level 27.6 Anion Gap 7 Estimat Glomerular Filtration Rate 45 Total Bilirubin 3.7 Direct Bilirubin 1.9 Indirect Bilirubin 1.8 Aspartate Amino Transf (AST/SGOT) 37 Alanine Aminotransferase (ALT/SGPT) 17 Alkaline Phosphatase 104 Total Protein 9.5 Albumin 3.9 Blood Gas Puncture Site RT RADIAL Blood Gas Patient Temperature 98.6 Blood Gas HCO3 27 Blood Gas Base Excess 0.3 Blood Gas Oxygen Saturation 82 Arterial Blood pH 7.23 Arterial Blood Partial Pressure CO2 66 Arterial Blood Partial Pressure O2 55 Arterial Blood Oxygen Content 10.0 Arterial Blood Carboxyhemoglobin 3.0 Arterial Blood Methemoglobin 1.8 Blood Gas Hemoglobin 8.7 Oxygen Delivery Device NASAL CANNULA Blood Gas Liter Flow 4 Blood Gas Inspired Oxygen 36 Result Diagram: 07/21/17 0430 07/21/17 0430 Imaging Last Impressions Lung Scan-VQ Nuclear Medicine 07/20/17 0000 Signed Impressions: Service Date/Time: Thursday, July 20, 2017 14:14 - CONCLUSION: Very limited examination secondary to patient's inability to cooperate for the exam. Risk category for pulmonary embolism can therefore not be estimated, however there are no specific findings to specifically elevate likelihood of pulmonary embolism. Moo Rubalcava MD Septic Shock Reassessment Septic shock perfusion: reassessment completed Assessment and Plan Problem List: (1) Sickle cell anemia ICD Code: D57.1 - Sickle-cell disease without crisis Status: Chronic (2) Symptomatic anemia ICD Code: D64.9 - Anemia, unspecified Status: Chronic (3) CHF (congestive heart failure) ICD Code: I50.9 - Heart failure, unspecified Status: Acute (4) Schizophrenia ICD Code: F20.9 - Schizophrenia, unspecified Status: Chronic (5) Morbid obesity with BMI of 45.0-49.9, adult ICD Code: E66.01 - Morbid (severe) obesity due to excess calories; Z68.42 - Body mass index (BMI) 45.0-49.9, adult Status: Chronic (6) Obstructive sleep apnea hypopnea, severe ICD Code: G47.33 - Obstructive sleep apnea (adult) (pediatric) Status: Chronic Assessment and Plan This is a 42-year-old female in moderate respiratory distress secondary to severe obstructive sleep apnea resulting in hypercapnic respiratory insufficiency. The patient has multiple comorbidities to include schizophrenia , severe AMBAR and refusing to wear BIPAP. Patient is at risk for emergent intubation, which was discussed with her and her significant other. Admit to ICU. Plan by systems: Neurologic: Schizophrenia Chronic Pain secondary to sickle cell disease Continue antipsychotic medications Minimize sedatives Respiratory: Acute hypercapnic respiratory insufficiency Patient will benefit from BIPAP, but has been refusing Placed on high flow nasal cannula, obtain ABG Plan for intubation Maintain O2 sat greater than 92% Maintain head of the bed 30-45 Cardiovascular: Acute diastolic CHF Cardiology following 07/20 Echo-normal systolic function, mild to moderate TR, mild to moderate [place] , Small pericardial effusion Currently on Lasix 20 mg twice a day Renal: Maintain Demarco -- Strict I/Os FEN/GI: Morbid obesity Renal insufficiency Bedside swallow Nothing by mouth for now patient is at risk for intubation Heme/ID: Sickle cell anemia Multiple DVTs status post IVC filter placement Iron overload Hematology following Monitor CBC Endocrine: Sliding-scale insulin per ICU protocol -- SSI Prophylaxis: GI Prophylaxis Famotidine DVT Prophylaxis -- SCDs Patient on Xarelto Lines: Peripheral IVs 2 Dispo: my billing statement This patient remains critically ill with one or more organ systems which are or may become a threat to life. I have spent in excess of 37 minutes discontinuously in the care and management of this patient. This time is exclusive of procedures, and includes, but is not limited to, evaluation of the patient, review of the medical record, discussions with family, consultants, nursing staff, or respiratory therapy, and documentation in the medical record. Code Status Full Discussed Condition With [employer], Dr. Hills, Dr. Vargas, significant other at bedside Problem Qualifiers (1) Sickle cell anemia: Qualified Codes: D57.00 - Hb-SS disease with crisis, unspecified (2) CHF (congestive heart failure): Qualified Codes: I50.31 - Acute diastolic (congestive) heart failure Preethi Mai MD Jul 21, 2017 15:56
--- NOTE | 2017-07-21 16:17 | HHI.PR ---
Subjective Remarks combative declines BIPAP NO RESPIRATORY DISTRESS NOT ABLE TO GRASP SERIOYSNESS OF HER ILLNESS Objective Vital Signs Date Time Temp Pulse Resp B/P (MAP) Pulse Ox O2 Delivery O2 Flow Rate FiO2 07/21/17 16:00 93 07/21/17 15:59 92 High Flow Nasal Cannula 20.00 35 07/21/17 14:00 95 07/21/17 12:00 98.7 93 16 112/72 (85) 60 07/21/17 12:00 93 07/21/17 10:00 87 07/21/17 08:00 98.5 87 18 117/66 (83) 94 07/21/17 08:00 87 07/21/17 07:20 94 Nasal Cannula 4.00 07/21/17 06:00 82 07/21/17 04:00 98.6 83 10 121/67 (85) 96 07/21/17 04:00 83 07/21/17 02:00 87 07/21/17 00:00 90 07/21/17 00:00 98.4 90 19 118/70 (86) 92 07/20/17 22:00 86 07/20/17 20:00 98.6 88 17 140/90 (107) 96 07/20/17 20:00 88 07/20/17 19:05 93 Nasal Cannula 4.00 07/20/17 18:00 89 I/O 07/20/17 07/20/17 07/20/17 07/21/17 07/21/17 07/21/17 07:00 15:00 23:00 07:00 15:00 23:00 Intake Total 980 ml 440 ml 900 ml 400 ml Output Total 1100 ml 851 ml 700 ml Balance -120 ml 440 ml 49 ml -300 ml Intake Oral 280 ml 600 ml 400 ml Packed Cells 700 ml 400 ml 300 ml Blood Product IV Normal Saline Flush 40 ml Output Urine Total 1100 ml 850 ml 700 ml Stool Total 1 ml 0 ml # Bowel Movements 0 Result Diagram: 07/21/1742907/21/17429 Objective Remarks GENERAL: SKIN: Warm and dry. HEAD: Atraumatic. Normocephalic. EYES: Pupils equal and round. No scleral icterus. No injection or drainage. ENT: No nasal bleeding or discharge. Mucous membranes pink and moist. NECK: Trachea midline. No JVD. CARDIOVASCULAR: Regular rate and rhythm. RESPIRATORY: No accessory muscle use. Clear to auscultation. Breath sounds equal bilaterally. GASTROINTESTINAL: Abdomen soft, non-tender, nondistended. Hepatic and splenic margins not palpable. MUSCULOSKELETAL: Extremities without clubbing, cyanosis, or edema. No obvious deformities. NEUROLOGICAL: Awake and alert. No obvious cranial nerve deficits. Motor grossly within normal limits. Five out of 5 muscle strength in the arms and legs. Normal speech. PSYCHIATRIC: Appropriate mood and affect; insight and judgment normal. Assessment and Plan Assessment and Plan RESPIRATORY FAILURE COPD AMBAR DVT SS ANEMIA MORBID OBESITY ON XARELTO PLAN O2 NEEDED BIPAP IF POSSILBLE BRONCHODILATORS VENT SUPPORT IF NECESSARY OUTLOOK POOR Regan,Regan Sanders MD Jul 21, 2017 16:17
[2017-07-21] MEDS ORDERED: fentaNYL CITRATE 250 MCG/5 ML AMP IV PUSH ONE (17:30)
[2017-07-21] MEDS ORDERED: ETOMIDATE 40 MG/20 ML VIAL IV PUSH ONE (17:30)
[2017-07-21] MEDS ORDERED: ROCURONIUM INJ 50 MG/5 ML VIAL IV ONE (17:30)
[2017-07-21] MEDS ORDERED: ETOMIDATE 40 MG/20 ML VIAL ONE (17:35)
[2017-07-21] MEDS ORDERED: SUCCINYLCHOLINE CHLORIDE 200 MG/10 ML VIAL ONE (17:37)
[2017-07-21] MEDS ORDERED: SUCCINYLCHOLINE CHLORIDE 200 MG/10 ML VIAL IV PUSH ONE (17:45)
--- NOTE | 2017-07-21 17:55 | PD.PROCEDR ---
Procedure Note Procedure Endotracheal Intubation Diagnosis: Acute hypoxemic and hypercarbic respiratory failure Indications: Same Consent: Obtained from POA Anesthesia: see MAR Description of the Procedure: The patient was positioned in the sniffing position. Pre-oxygenation was performed using a BVM. Anesthesia was induced via rapid sequence. A size 4 was used for laryngoscopy and a Grade 2 view was obtained. A 8.0 cuffed endotracheal tube was inserted atraumatically through the vocal cords. Confirmation of correct endotracheal tube placement was made by equal and bilateral breath sounds and colorimetric CO2 detection. The endotracheal tube was secured at 21 cm at the teeth. There were no immediate complications noted. The patient remained hemodynamically stable throughout the procedure. A chest x-ray has been ordered. I personally performed the procedure. Preethi Mai MD Jul 21, 2017 17:55
--- NOTE | 2017-07-21 18:28 | RADRPT ---
EXAM DATE/TIME: 07/21/2017 17:56 [facility] COMPARISON: CHEST SINGLE AP, July 18, 2017, 17:16. INDICATIONS : Post intubation. MEDICAL HISTORY : Chronic obstructive pulmonary disease. Sickle Cell disease. SURGICAL HISTORY : Port. ENCOUNTER: Subsequent ACUITY: 4 - 6 days PAIN SCORE: 0/10 LOCATION: Bilateral chest FINDINGS: Status post placement of an endotracheal tube. The tip of the endotracheal tube is just above the car rachel. There appears to be an NG tube in the stomach. There is some infiltrates in both lung bases. The heart size is diffusely enlarged but stable. No definite pneumothorax is demonstrated. There is a le ft central line in place. CONCLUSION: 1. Status post placement of the ET tube with the tip at the james. Recommend pullback ET tube about 4 cm. 2. No evidence of pneumothorax. 3. Stable cardiomegaly. 4. Bibasilar infiltrates. Devonte Roman MD on July 21, 2017 at 18:25 Board Certified Radiologist. This report was verified electronically.
[2017-07-21] MEDS: PROPOFOL 1000 MG/100 ML INJ 100 ML IV PRN (18:39)
[2017-07-21] MEDS: CHLORHEXIDINE 0.12% (ORAL KIT) 15 ML CUP MT SCH (21:26)
[2017-07-22] VITALS (20 sets, daily range): BP systolic 106–132; BP diastolic 63–83; PULSE 68–93; RESP 17–22; TEMP 98.2–99.2; O2SAT 92–100
[2017-07-22] MEDS: PROPOFOL 1000 MG/100 ML INJ 100 ML IV PRN ×6 (01:22→21:28)
[2017-07-22] MEDS: CHLORHEXIDINE GLUCONATE 2 % 1 PACK (2 CLOTHS)(taper/protocol) TOPICAL SCH (04:00)
--- NOTE | 2017-07-22 04:05 | RADRPT ---
EXAM DATE/TIME: 07/22/2017 03:21 [facility] COMPARISON: CHEST SINGLE AP, July 21, 2017, 17:56. INDICATIONS : Shortness of breath, possible pulmonary disease. MEDICAL HISTORY : Chronic obstructive pulmonary disease. Sickle Cell disease. SURGICAL HISTORY : Port placement. ENCOUNTER: Subsequent ACUITY: 1 week PAIN SCORE: Non-responsive. LOCATION: Bilateral chest FINDINGS: Portable AP view of the chest demonstrates stable enlargement of the cardiac silhouette. Endotracheal tube distal tip measures 2.9 cm from the jmaes. Left chest wall [id number] and nasogastric tube remain present. Lungs are underinflated. There is a left basilar pleural-parenchymal opacity obscurin g the left hemidiaphragm. There is likely atelectasis at the right lung base. No pneumothorax is visu alized. CONCLUSION: 1. Stable left basilar opacity representing either effusion, consolidation, and/or atelectasis. 2. Stable enlargement of the cardiac silhouette. Moo Vergara MD on July 22, 2017 at 4:03 Board Certified Radiologist. This report was verified electronically.
[2017-07-22 05:20] LABS: AUTOMATED NEUTROPHIL # 6.6 TH/MM3 (1.8-7.7); BASOPHIL # 0.1 TH/MM3 (0-0.2); BASOPHIL % 0.9 % (0.0-2.0); EOSINOPHIL # 0.1 TH/MM3 (0-0.4); EOSINOPHIL % 1.8 % (0.0-4.0); HEMATOCRIT 26.4 % (35.0-46.0); HEMOGLOBIN 9.4 GM/DL (11.6-15.3); LYMPH % 8.3 % (9.0-44.0); LYMPHOCYTE # 0.7 TH/MM3 (1.0-4.8); MEAN CELL VOLUME 88.6 FL (80.0-100.0); MEAN CORPUSCULAR HEMOGLOBIN 31.5 PG (27.0-34.0); MEAN CORPUSCULAR HGB CONC 35.6 % (32.0-36.0); MEAN PLATELET VOLUME 9.6 FL (7.0-11.0); MONO % 10.5 % (0.0-8.0); MONOCYTE # 0.9 TH/MM3 (0-0.9); NEUT % 78.5 % (16.0-70.0); PLATELET COUNT 220 TH/MM3 (150-450); RED BLOOD COUNT 2.98 MIL/MM3 (4.00-5.30); WHITE BLOOD COUNT 8.5 TH/MM3 (4.0-11.0)
[2017-07-22 05:35] LABS: RETIC # 491.2 MIL/L (20.0-150.0); RETIC % 16.5 % (0.4-3.0)
[2017-07-22 05:37] LABS: ALBUMIN 3.5 GM/DL (3.4-5.0); BICARBONATE 26.8 MEQ/L (21.0-32.0); CALCIUM 8.8 MG/DL (8.5-10.1); DIRECT BILIRUBIN ADULT 2.1 MG/DL (0.0-0.2)
[2017-07-22 05:40] LABS: INDIRECT BILIRUBIN 2.1 MG/DL (0.0-0.8); TOTAL BILIRUBIN ADULT 4.2 MG/DL (0.2-1.0); TOTAL PROTEIN 8.6 GM/DL (6.4-8.2)
[2017-07-22 08:58] LABS: CORRECTED NUCLEATED RBC 23 /100 WBC (0-0); LYMPHOCYTES 16 % (9-44); MONOCYTES 6 % (0-8); MYELOCYTES 1 % (0-0); NEUTROPHIL # MANUAL DIFF 6.5 TH/MM3 (1.8-7.7); NUCLEATED RED BLOOD CELL 23 (0-0); POLYS (SEG NEUTROPHILS) 75 % (16-70)
[2017-07-22 08:59] LABS: SICKLE CELLS 1+ (NORMAL); TARGET CELLS 2+ (NORMAL)
[2017-07-22 09:00] LABS: ACANTHOCYTES OCC (NORMAL); KERATOCYTES OCC (NORMAL)
[2017-07-22] MEDS: DEFERASIROX 360 MG PO SCH (09:00)
[2017-07-22] MEDS: HYDROXYUREA 500 MG CAP PO SCH (10:13)
[2017-07-22] MEDS: FUROSEMIDE 20 MG/2 ML VIAL IV PUSH SCH ×2 (10:15→19:38)
[2017-07-22] MEDS: FOLIC ACID 1 MG TAB PO SCH (10:16)
[2017-07-22] MEDS: BENZTROPINE MESYLATE 1 MG TAB PO SCH ×2 (10:16→21:28)
[2017-07-22] MEDS: PALIPERIDONE ER 3 MG TAB PO SCH (10:16)
[2017-07-22] MEDS: RIVAROXABAN 20 MG TAB PO SCH (10:16)
[2017-07-22] MEDS: CITALOPRAM HYDROBROMIDE 20 MG TAB PO SCH (10:16)
[2017-07-22] MEDS: SODIUM CHLORIDE 0.9% FLUSH 10 ML FLUSH IV FLUSH SCH ×2 (10:18→21:30)
[2017-07-22] MEDS: CHLORHEXIDINE 0.12% (ORAL KIT) 15 ML CUP MT SCH ×2 (10:18→21:29)
--- NOTE | 2017-07-22 13:41 | HHI.CCPN ---
Subjective Remarks/Hospital Course This is a 42 y/o obese female with a history of sickle cell anemia, schizophrenia, sleep apnea on a DVT, with IVC filter and CHF that presented to the [place] ED with progressive dyspnea. She was found to have a hgb of 5.1 and transferred to [facility]. The patient was transfused, imaging studies revealed cardiomegaly and a pericardial effusion at that time. Significant other states patient has been short of breath for a few months and was seen previously one month ago at [facility]. He states she was found to have a DVT in her right lower extremity and placed on Xarelto with an IVC filter placed. The patient's significant other, POA provided information that she has sleep apnea but due to her schizophrenia and claustrophobia she is unable to wear a CPAP at home. She was found to be profoundly anemic with hemoglobin as low as 6.9; level has improved after transfusion. CXR shows cardiomegaly and possible pericardial effusion. VQ scan is within normal limits, EKG did not demonstrate concerning ST changes and troponin is negative. BNP elevated. The patient was admitted to [facility], consultations were obtained by cardiology pulmonology and pulmonology. Over the last 24 hours the patient continued have respiratory insufficiency and continued to refuse to wear CPAP in the setting of severe obstructive sleep apnea. Critical care medicine was consulted for continued respiratory decompensation and possible intubation. Subjective: 07/22: Acute events overnight. The patient was emergently intubated secondary to respiratory decompensation last evening. Patient noted to have excessive soft tissue Mallampati grade 2, with glidescope.-Currently intubated and sedated CPAP trials to be initiated today. Objective Vital Signs Date Time Temp Pulse Resp B/P (MAP) Pulse Ox O2 Delivery O2 Flow Rate FiO2 07/22/17 11:15 95 50 07/22/17 07:50 Ventilator 07/22/17 06:00 74 07/22/17 04:00 99.0 18 132/83 (99) 07/21/17 15:59 20.00 Intake and Output 07/22/17 07/22/17 07/23/17 08:00 16:00 00:00 Intake Total 150 ml Output Total 1100 ml Balance -950 ml Result Diagram: 07/22/17 0335 07/22/17 0335 Other Results Laboratory Tests Test 07/21/17 13:48 07/21/17 16:50 07/21/17 19:30 07/22/17 03:53 Blood Gas Puncture Site RT RADIAL CENTRAL LINE RT RADIAL RT BRACHIAL Blood Gas Patient Temperature 98.6 98.6 98.6 98.6 Blood Gas HCO3 27 mmol/L (22-26) 26 mmol/L (22-26) 26 mmol/L (22-26) Blood Gas Base Excess 0.3 mmol/L (-2-2) 1.4 mmol/L (-2-2) 2.9 mmol/L (-2-2) Blood Gas Oxygen Saturation 82 % (90-100) 91 % (90-100) 89 % (90-100) Arterial Blood pH 7.23 (7.380-7.420) 7.42 (7.380-7.420) 7.48 (7.380-7.420) Arterial Blood Partial Pressure CO2 66 mmHg (38-42) 40 mmHg (38-42) 36 mmHg (38-42) Arterial Blood Partial Pressure O2 55 mmHg (61-120) 69 mmHg (61-120) 60 mmHg (61-120) Arterial Blood Oxygen Content 10.0 Vol % (12.0-20.0) 11.0 Vol % (12.0-20.0) 11.8 Vol % (12.0-20.0) Arterial Blood Carboxyhemoglobin 3.0 % (0-4) 3.2 % (0-4) 2.7 % (0-4) Arterial Blood Methemoglobin 1.8 % (0-2) 1.7 % (0-2) 1.7 % (0-2) Blood Gas Hemoglobin 8.7 G/DL (12.0-16.0) 8.5 G/DL (12.0-16.0) 9.4 G/DL (12.0-16.0) Oxygen Delivery Device NASAL CANNULA HIGH FLOW VENTILATOR VENT Blood Gas Liter Flow 4 L/M 20 L/M Blood Gas Inspired Oxygen 36 % 40 % 50 % 45 % Venous Blood pH 7.22 (7.360-7.400) Venous Blood Partial Pressure CO2 68 mmHg (44-48) Venous Blood Partial Pressure O2 42 mmHg (35-40) Venous Blood HCO3 27 mmol/L (22-26) Venous Blood Oxygen Saturation 69 % (70-76) Venous Blood Oxygen Content 8.2 Vol % (9.0-17.0) Venous Blood Base Excess -0.2 mmol/L (-2-2) Blood Gas Ventilator Setting PRVC/AC SEE COMMENTS Imaging Last Impressions Lung Scan-VQ Nuclear Medicine 07/20/17 0000 Signed Impressions: Service Date/Time: Thursday, July 20, 2017 14:14 - CONCLUSION: Very limited examination secondary to patient's inability to cooperate for the exam. Risk category for pulmonary embolism can therefore not be estimated, however there are no specific findings to specifically elevate likelihood of pulmonary embolism. Moo Rubalcava MD Objective Remarks GENERAL: This is a morbidly obese -N[place]alese female confused agitated currently refusing care placement on BiPAP SKIN: Warm and dry. HEAD: Atraumatic. Normocephalic. EYES: Pupils equal and round. No scleral icterus. No injection or drainage. ENT: No nasal bleeding or discharge. Mucous membranes pink and moist. NECK: Trachea midline. Unable to assess JVD secondary to body habitus. CARDIOVASCULAR: Normal rate, regular rhythm. RESPIRATORY: No accessory muscle use. Clear to auscultation. Breath sounds equal bilaterally. GASTROINTESTINAL: Abdomen soft, obese ,non-tender, nondistended. No guarding. MUSCULOSKELETAL: Extremities without clubbing, cyanosis, bilateral lower extremity edema right greater than left. NEUROLOGICAL: Awake and alert, agitated. RASS 0. No gross focal/sensory deficits. Follows commands in all 4 extremities. A/P Problem List: (1) Sickle cell anemia ICD Code: D57.1 - Sickle-cell disease without crisis Status: Chronic (2) Symptomatic anemia ICD Code: D64.9 - Anemia, unspecified Status: Chronic (3) CHF (congestive heart failure) ICD Code: I50.9 - Heart failure, unspecified Status: Acute (4) Schizophrenia ICD Code: F20.9 - Schizophrenia, unspecified Status: Chronic (5) Morbid obesity with BMI of 45.0-49.9, adult ICD Code: E66.01 - Morbid (severe) obesity due to excess calories; Z68.42 - Body mass index (BMI) 45.0-49.9, adult Status: Chronic (6) Obstructive sleep apnea hypopnea, severe ICD Code: G47.33 - Obstructive sleep apnea (adult) (pediatric) Status: Chronic Assessment and Plan This is a 42-year-old female in moderate respiratory distress secondary to severe obstructive sleep apnea resulting in hypercapnic respiratory insufficiency. The patient has multiple comorbidities to include schizophrenia , severe AMBAR and refusing to wear BIPAP. Patient is at risk for emergent intubation, which was discussed with her and her significant other. Admit to ICU. Plan by systems: Neurologic: Schizophrenia Chronic Pain secondary to sickle cell disease Continue antipsychotic medications Minimize sedatives Respiratory: Acute hypercapnic respiratory insufficiency Severe AMBAR 07/21 emergently intubated 8.0 ETT 21 cm @ lip ABGs and chest x-rays as clinically indicated Maintain O2 sat greater than 92% Maintain head of the bed 30-45 Cardiovascular: Acute diastolic CHF Cardiology following 07/20 Echo-normal systolic function, mild to moderate TR, mild to moderate [place] , Small pericardial effusion Currently on Lasix 20 mg twice a day Renal: Maintain Demarco -- Strict I/Os FEN/GI: Morbid obesity Renal insufficiency Dietary consult Insert NG tube-and begin tube feeds Nothing by mouth for now patient is at risk for intubation Heme/ID: Sickle cell anemia Multiple DVTs status post IVC filter placement Iron overload Hematology following Monitor CBC Endocrine: Sliding-scale insulin per ICU protocol -- SSI Prophylaxis: GI Prophylaxis Famotidine DVT Prophylaxis -- SCDs Patient on Xarelto Lines: Peripheral IVs 2 Dispo: my billing statement This patient remains critically ill with one or more organ systems which are or may become a threat to life. I have spent in excess of 30 minutes discontinuously in the care and management of this patient. This time is exclusive of procedures, and includes, but is not limited to, evaluation of the patient, review of the medical record, discussions with family, consultants, nursing staff, or respiratory therapy, and documentation in the medical record. Physician Preethi Mai Problem Qualifiers (1) Sickle cell anemia: Qualified Codes: D57.00 - Hb-SS disease with crisis, unspecified (2) CHF (congestive heart failure): Qualified Codes: I50.31 - Acute diastolic (congestive) heart failure Preethi Mai MD Jul 22, 2017 13:41
--- NOTE | 2017-07-22 14:32 | PD.ONC.PN ---
Subjective Subjective Remarks Afebrile overnight. Patient intubated, sedated. she was intubated yesterday after co2 on blood gas came back significantly elevated. Objective Data Date Time Temp Pulse Resp B/P (MAP) Pulse Ox O2 Delivery O2 Flow Rate FiO2 07/22/17 13:31 50 07/22/17 11:15 95 50 07/22/17 07:50 95 50 07/22/17 07:50 95 Ventilator 50 07/22/17 06:00 74 07/22/17 04:31 95 Ventilator 50 07/22/17 04:31 95 50 07/22/17 04:00 50 07/22/17 04:00 68 07/22/17 04:00 99.0 68 18 132/83 (99) 94 07/22/17 02:39 93 45 07/22/17 02:00 71 07/22/17 00:14 94 45 07/22/17 00:00 77 07/22/17 00:00 98.9 77 17 114/69 (84) 94 07/22/17 00:00 45 07/21/17 22:05 97 45 07/21/17 20:00 79 07/21/17 20:00 100.0 79 20 111/59 (76) 94 07/21/17 20:00 50 07/21/17 19:50 96 50 07/21/17 18:00 90 07/21/17 17:50 97 50 07/21/17 17:50 50 07/21/17 16:00 98.6 93 16 121/61 (81) 91 07/21/17 16:00 93 07/21/17 15:59 92 High Flow Nasal Cannula 20.00 35 07/22/17 07/22/17 07/22/17 07:00 15:00 23:00 Intake Total 150 ml Output Total 1100 ml Balance -950 ml Result Diagram: 07/22/1733407/22/17334 Laboratory Results Laboratory Tests Test 07/21/17 16:50 07/21/17 19:30 07/22/17 03:35 07/22/17 03:53 Blood Gas Puncture Site CENTRAL LINE RT RADIAL RT BRACHIAL Blood Gas Patient Temperature 98.6 98.6 98.6 Venous Blood pH 7.22 Venous Blood Partial Pressure CO2 68 mmHg Venous Blood Partial Pressure O2 42 mmHg Venous Blood HCO3 27 mmol/L Venous Blood Oxygen Saturation 69 % Venous Blood Oxygen Content 8.2 Vol % Venous Blood Base Excess -0.2 mmol/L Oxygen Delivery Device HIGH FLOW VENTILATOR VENT Blood Gas Liter Flow 20 L/M Blood Gas Inspired Oxygen 40 % 50 % 45 % Blood Gas HCO3 26 mmol/L 26 mmol/L Blood Gas Base Excess 1.4 mmol/L 2.9 mmol/L Blood Gas Oxygen Saturation 91 % 89 % Arterial Blood pH 7.42 7.48 Arterial Blood Partial Pressure CO2 40 mmHg 36 mmHg Arterial Blood Partial Pressure O2 69 mmHg 60 mmHg Arterial Blood Oxygen Content 11.0 Vol % 11.8 Vol % Arterial Blood Carboxyhemoglobin 3.2 % 2.7 % Arterial Blood Methemoglobin 1.7 % 1.7 % Blood Gas Hemoglobin 8.5 G/DL 9.4 G/DL Blood Gas Ventilator Setting PRVC/AC SEE COMMENTS White Blood Count 8.5 TH/MM3 Red Blood Count 2.98 MIL/MM3 Hemoglobin 9.4 GM/DL Hematocrit 26.4 % Mean Corpuscular Volume 88.6 FL Mean Corpuscular Hemoglobin 31.5 PG Mean Corpuscular Hemoglobin Concent 35.6 % Red Cell Distribution Width 23.0 % Platelet Count 220 TH/MM3 Mean Platelet Volume 9.6 FL Neutrophils (%) (Auto) 78.5 % Lymphocytes (%) (Auto) 8.3 % Monocytes (%) (Auto) 10.5 % Eosinophils (%) (Auto) 1.8 % Basophils (%) (Auto) 0.9 % Neutrophils # (Auto) 6.6 TH/MM3 Lymphocytes # (Auto) 0.7 TH/MM3 Monocytes # (Auto) 0.9 TH/MM3 Eosinophils # (Auto) 0.1 TH/MM3 Basophils # (Auto) 0.1 TH/MM3 CBC Comment AUTO DIFF Differential Total Cells Counted 100 Neutrophils % (Manual) 75 % Lymphocytes % 16 % Monocytes % 6 % Eosinophils % 2 % Neutrophils # (Manual) 6.5 TH/MM3 Myelocytes 1 % Nucleated Red Blood Cells 23 /100 WBC Differential Comment FINAL DIFF MANUAL Platelet Estimate NORMAL Platelet Morphology Comment NORMAL Sickle Cells 1+ Target Cells 2+ Acanthocytes OCC Keratocytes OCC Reticulocyte Count 16.5 % Absolute Reticulocyte Count 491.2 MIL/L Blood Urea Nitrogen 51 MG/DL Creatinine 1.00 MG/DL Random Glucose 75 MG/DL Total Protein 8.6 GM/DL Albumin 3.5 GM/DL Calcium Level 8.8 MG/DL Alkaline Phosphatase 100 U/L Aspartate Amino Transf (AST/SGOT) 35 U/L Alanine Aminotransferase (ALT/SGPT) 15 U/L Total Bilirubin 4.2 MG/DL Direct Bilirubin 2.1 MG/DL Sodium Level 139 MEQ/L Potassium Level 3.5 MEQ/L Chloride Level 103 MEQ/L Carbon Dioxide Level 26.8 MEQ/L Anion Gap 9 MEQ/L Estimat Glomerular Filtration Rate 73 ML/MIN Indirect Bilirubin 2.1 MG/DL Imaging Studies Last 24 hours Impressions Chest X-Ray 07/22/17 0600 Signed Impressions: Service Date/Time: July 03:21 - CONCLUSION: 1. Stable left basilar opacity representing either effusion, consolidation, and/or atelectasis. 2. Stable enlargement of the cardiac silhouette. Moo Vergara MD Administered Medications Medications (Trade) Dose Ordered Sig/Gini Route PRN Reason Start Time Stop Time Status Last Admin Dose Admin Sodium Chloride (NS Flush) 2 ml BID IV FLUSH 07/18/17 21:00 07/22/17 10:18 Morphine Sulfate (Morphine Inj) 2 mg Q3H PRN IV PUSH BREAKTHROUGH PAIN 07/18/17 21:45 07/21/17 14:12 Chlorhexidine Gluconate (Chlorhexidine 2% Cloth) 3 pack DAILY@04 TOPICAL 07/19/17 04:00 07/23/17 04:01 07/22/17 04:00 Benztropine Mesylate (Cogentin) 1 mg BID PO 07/19/17 09:00 07/22/17 10:16 Citalopram Hydrobromide (CeleXA) 20 mg DAILY PO 07/19/17 09:00 07/22/17 10:16 Folic Acid (Folate) 1 mg DAILY PO 07/19/17 09:00 07/22/17 10:16 Hydroxyurea (Hydrea) 1,000 mg DAILY PO 07/19/17 09:00 07/22/17 10:13 Paliperidone Palmitate (Invega Er) 3 mg DAILY PO 07/19/17 09:00 07/22/17 10:16 Furosemide (Lasix Inj) 20 mg BID@18 IV PUSH 07/19/17 09:00 07/22/17 10:15 Rivaroxaban (Xarelto) 20 mg DAILY PO 07/19/17 09:00 07/22/17 10:16 Patient Own Medication PT OWN MED: Deferasi... DAILY PO 07/19/17 11:00 07/21/17 09:30 Chlorhexidine Gluconate (Peridex 0.12% Liq) 15 ml BID@08,20 MT 07/21/17 20:00 07/22/17 10:18 Propofol 100 ml @ 3.519 mls/ hr TITRATE PRN IV SEDATION 07/21/17 17:45 07/22/17 05:20 Objective Remarks GENERAL: Obese female, lying supine intubated, sedated. SKIN: Warm and dry. HEAD: Normocephalic. EYES: No injection or drainage. NECK: Supple, trachea midline. CARDIOVASCULAR: Regular rate and rhythm RESPIRATORY: anterior resendiz clear. on CPAP via OT intubation GASTROINTESTINAL: Abdomen soft, non-tender, nondistended. EXTREMITIES: No cyanosis NEUROLOGICAL: intubated, sedated Assessment/Plan Problem List: (1) Sickle cell anemia ICD Codes: D57.1 - Sickle-cell disease without crisis Status: Chronic Plan: 07/22: monitor hemoglobin/bilirubin, no transfusion needed at present. --CXR-->shows enlargement of the cardiac silhouette. follows with a pen or pencil assembly machine operator in [place]. (2) CHF (congestive heart failure) ICD Codes: I50.9 - Heart failure, unspecified Status: Acute Plan: --cardiology following (3) Iron overload ICD Codes: E83.19 - Other disorders of iron metabolism Plan: --[facility] outpatient Assessment 42y/o female with sicle cell anemia admitted in vasoocclusive crises. h/o DVT in the right lower extremity-->on Xarelto and had an IVC filter placed. h/o Sickle-cell anemia with multiple painful crises. Sleep apnea. Congestive heart failure. Schizophrenia. Attending Statement The exam, history, and the medical decision-making described in the above note were completed with the assistance of the mid-level provider. I reviewed and agree with the findings presented. I attest that I had a [id number] encounter with the patient on the same day, and personally performed and documented my assessment and findings in the medical record. sedated on vent. HG 9.4 No Tx T.Bili is high due to hemolysis. has CHF and sleep apnea syndrome resulted in resp failure , now on vent Problem Qualifiers (1) Sickle cell anemia: Qualified Codes: D57.00 - Hb-SS disease with crisis, unspecified (2) CHF (congestive heart failure): Qualified Codes: I50.31 - Acute diastolic (congestive) heart failure Elsy Pedraza Jul 22, 2017 14:32 Nina Villa MD Jul 22, 2017 18:33
[2017-07-22] MEDS: ACETAMINOPHEN/HYDROcodone 325 MG/10 MG TAB PO PRN (15:17)
--- NOTE | 2017-07-22 16:49 | HHI.PR ---
Subjective Remarks combative declined BIPAP, now on vent support mark ss anemia DVT plan vent support WEAN WHEN POSSIBLE Objective Vital Signs Date Time Temp Pulse Resp B/P (MAP) Pulse Ox O2 Delivery O2 Flow Rate FiO2 07/22/17 15:30 100 40 07/22/17 13:31 50 07/22/17 11:15 95 50 07/22/17 08:00 50 07/22/17 08:00 78 07/22/17 08:00 99.2 78 20 109/65 (80) 95 07/22/17 07:50 95 50 07/22/17 07:50 95 Ventilator 50 07/22/17 06:00 74 07/22/17 04:31 95 Ventilator 50 07/22/17 04:31 95 50 07/22/17 04:00 50 07/22/17 04:00 68 07/22/17 04:00 99.0 68 18 132/83 (99) 94 07/22/17 02:39 93 45 07/22/17 02:00 71 07/22/17 00:14 94 45 07/22/17 00:00 77 07/22/17 00:00 98.9 77 17 114/69 (84) 94 07/22/17 00:00 45 07/21/17 22:05 97 45 07/21/17 20:00 79 07/21/17 20:00 100.0 79 20 111/59 (76) 94 07/21/17 20:00 50 07/21/17 19:50 96 50 07/21/17 18:00 90 07/21/17 17:50 97 50 07/21/17 17:50 50 I/O 07/21/17 07/21/17 07/21/17 07/22/17 07/22/17 07/22/17 07:00 15:00 23:00 07:00 15:00 23:00 Intake Total 400 ml 425 ml 150 ml Output Total 700 ml 1000 ml 1100 ml Balance -300 ml -575 ml -950 ml Intake Oral 400 ml 425 ml 0 ml IV Total 100 ml Tube Irrigant 50 ml Output Urine Total 700 ml 1000 ml 1100 ml Stool Total 0 ml # Bowel Movements 0 0 Result Diagram: 07/22/1733407/22/17334 Objective Remarks GENERAL: SKIN: Warm and dry. HEAD: Atraumatic. Normocephalic. EYES: Pupils equal and round. No scleral icterus. No injection or drainage. ENT: No nasal bleeding or discharge. Mucous membranes pink and moist. NECK: Trachea midline. No JVD. CARDIOVASCULAR: Regular rate and rhythm. RESPIRATORY: No accessory muscle use. Clear to auscultation. Breath sounds equal bilaterally. GASTROINTESTINAL: Abdomen soft, non-tender, nondistended. Hepatic and splenic margins not palpable. MUSCULOSKELETAL: Extremities without clubbing, cyanosis, or edema. No obvious deformities. NEUROLOGICAL: Awake and alert. No obvious cranial nerve deficits. Motor grossly within normal limits. Five out of 5 muscle strength in the arms and legs. Normal speech. PSYCHIATRIC: Appropriate mood and affect; insight and judgment normal. Assessment and Plan Assessment and Plan RESPIRATORY FAILURE COPD MARK DVT SS ANEMIA MORBID OBESITY ON XARELTO PLAN O2 NEEDED BIPAP IF POSSILBLE BRONCHODILATORS VENT SUPPORT IF NECESSARY OUTLOOK Regan Green MD Jul 22, 2017 16:49
[2017-07-23] VITALS (31 sets, daily range): BP systolic 104–134; BP diastolic 53–79; PULSE 71–96; RESP 16–31; TEMP 98.9–99.2; O2SAT 86–99
[2017-07-23] MEDS: PROPOFOL 1000 MG/100 ML INJ 100 ML IV PRN ×8 (03:26→23:29)
[2017-07-23 05:04] LABS: AUTOMATED NEUTROPHIL # 6.1 TH/MM3 (1.8-7.7); BASOPHIL # 0.1 TH/MM3 (0-0.2); EOSINOPHIL # 0.2 TH/MM3 (0-0.4); HEMATOCRIT 27.6 % (35.0-46.0); HEMOGLOBIN 9.5 GM/DL (11.6-15.3); LYMPH % 9.8 % (9.0-44.0); LYMPHOCYTE # 0.8 TH/MM3 (1.0-4.8); MEAN CELL VOLUME 89.6 FL (80.0-100.0); MEAN CORPUSCULAR HEMOGLOBIN 30.9 PG (27.0-34.0); MEAN CORPUSCULAR HGB CONC 34.5 % (32.0-36.0); MEAN PLATELET VOLUME 9.7 FL (7.0-11.0); MONO % 11.1 % (0.0-8.0); MONOCYTE # 0.9 TH/MM3 (0-0.9); NEUT % 76.1 % (16.0-70.0); PLATELET COUNT 202 TH/MM3 (150-450); RED BLOOD COUNT 3.08 MIL/MM3 (4.00-5.30); RED CELL DISTRIBUTION WIDTH 25.4 % (11.6-17.2)
--- NOTE | 2017-07-23 05:21 | RADRPT ---
EXAM DATE/TIME: 07/23/2017 03:55 [place] COMPARISON: CHEST SINGLE AP, July 22, 2017, 3:21. INDICATIONS : Evaluate for respiratory failure. MEDICAL HISTORY : Chronic obstructive pulmonary disease. Sickle Cell disease. SURGICAL HISTORY : Port placement. ENCOUNTER: Subsequent ACUITY: 4 - 6 days PAIN SCORE: Non-responsive. LOCATION: chest FINDINGS: A single view of the chest demonstrates endotracheal tube in good position. A left central line in lynch perior vena cava. NG enters stomach. Bilateral mostly basilar airspace disease present similar to Feb ruary 8. Cardiomegaly. CONCLUSION: 1. Support apparatus in good position. Bilateral mostly basilar airspace consolidation similar to Feb ruary 8. Arpan Harman MD on July 23, 2017 at 5:18 Board Certified Radiologist. This report was verified electronically.
[2017-07-23 05:22] LABS: BICARBONATE 29.6 MEQ/L (21.0-32.0); CALCIUM 8.8 MG/DL (8.5-10.1); CREATININE 0.81 MG/DL (0.50-1.00); MAGNESIUM 1.8 MG/DL (1.5-2.5)
[2017-07-23 05:23] LABS: PHOSPHORUS 3.7 MG/DL (2.5-4.9)
[2017-07-23 07:12] LABS: BASOPHILS 1 % (0-2); CORRECTED NUCLEATED RBC 11 /100 WBC (0-0); LYMPHOCYTES 11 % (9-44); MONOCYTES 3 % (0-8); NEUTROPHIL # MANUAL DIFF 6.7 TH/MM3 (1.8-7.7); NUCLEATED RED BLOOD CELL 11 (0-0); POLYS (SEG NEUTROPHILS) 84 % (16-70)
[2017-07-23 07:13] LABS: TARGET CELLS 1+ (NORMAL)
[2017-07-23 07:14] LABS: ACANTHOCYTES OCC (NORMAL)
[2017-07-23] MEDS: RIVAROXABAN 20 MG TAB PO SCH (07:56)
[2017-07-23] MEDS: CITALOPRAM HYDROBROMIDE 20 MG TAB PO SCH (07:56)
[2017-07-23] MEDS: BENZTROPINE MESYLATE 1 MG TAB PO SCH ×2 (07:57→19:35)
[2017-07-23] MEDS: FOLIC ACID 1 MG TAB PO SCH (07:57)
[2017-07-23] MEDS: HYDROXYUREA 500 MG CAP PO SCH (08:00)
[2017-07-23] MEDS: PALIPERIDONE ER 3 MG TAB PO SCH (08:01)
[2017-07-23] MEDS: CHLORHEXIDINE 0.12% (ORAL KIT) 15 ML CUP MT SCH ×2 (08:02→19:36)
[2017-07-23] MEDS: SODIUM CHLORIDE 0.9% FLUSH 10 ML FLUSH IV FLUSH SCH ×2 (08:02→19:35)
[2017-07-23] MEDS: DEFERASIROX 360 MG PO SCH (09:00)
[2017-07-23] MEDS ORDERED: POTASSIUM CHLORIDE 25 MEQ EFFERVESCENT TAB PO PRN (11:00)
[2017-07-23] MEDS ORDERED: ICU - MAGNESIUM OXIDE 400 MG TAB PO PRN (11:00)
[2017-07-23] MEDS ORDERED: ICU - POTASSIUM PHOSPHATE 30 MMOL/NS 250 ML IV PRN ×2 (11:00)
[2017-07-23] MEDS ORDERED: ICU - POTASSIUM CHLORIDE/AQUEOUS SOLN 20 MEQ/100 ML IVPB IV PRN (11:00)
[2017-07-23] MEDS ORDERED: ICU - MAGNESIUM SULFATE 4 GM/NS 100 ML IV PRN ×2 (11:00)
[2017-07-23] MEDS ORDERED: ICU - CALL ORDERING PHYSICIAN PRN (11:00)
[2017-07-23] MEDS ORDERED: ICU - D/C ICU ELECTROLYTE ORDERS PRN (11:00)
[2017-07-23] MEDS ORDERED: ICU - MAGNESIUM SULFATE 2 GM/NS 100 ML IV PRN ×2 (11:00)
[2017-07-23] MEDS ORDERED: ICU - SODIUM PHOSPHATE 30 MMOL/NS 250 ML IV PRN ×2 (11:00)
[2017-07-23] MEDS ORDERED: ICU - POTASSIUM PHOSPHATE MONOBASIC 500 MG TAB PO PRN (11:00)
[2017-07-23] MEDS: ICU - POTASSIUM CHLORIDE/AQUEOUS SOLN 40 MEQ/100 ML IVPB IV PRN ×2 (11:05→17:16)
[2017-07-23] MEDS: FUROSEMIDE 20 MG/2 ML VIAL IV PUSH SCH ×2 (11:06→17:17)
--- NOTE | 2017-07-23 13:14 | PD.ONC.PN ---
Subjective Subjective Remarks Afebrile overnight. Patient remains intubated, sedated. No family members at bedside. per nurse at bedside, has had yellow mucous via ET suction. Objective Data Date Time Temp Pulse Resp B/P (MAP) Pulse Ox O2 Delivery O2 Flow Rate FiO2 07/23/17 13:00 75 16 129/79 (96) 96 07/23/17 13:00 75 07/23/17 12:30 79 16 114/67 (83) 86 07/23/17 12:30 79 07/23/17 12:00 72 07/23/17 12:00 72 21 129/77 (94) 97 07/23/17 12:00 40 07/23/17 11:30 79 16 113/66 (82) 94 07/23/17 11:30 79 07/23/17 11:00 71 16 122/73 (89) 95 07/23/17 11:00 71 07/23/17 10:35 94 40 07/23/17 10:30 78 16 113/67 (82) 95 07/23/17 10:30 78 07/23/17 10:00 82 07/23/17 10:00 82 16 116/68 (84) 95 07/23/17 09:30 75 07/23/17 09:30 75 16 115/66 (82) 97 07/23/17 09:00 78 16 113/67 (82) 97 07/23/17 09:00 78 07/23/17 08:30 79 16 113/67 (82) 96 07/23/17 08:30 79 07/23/17 08:00 40 07/23/17 08:00 77 07/23/17 08:00 99.1 77 16 112/64 (80) 96 07/23/17 07:23 95 40 07/23/17 06:00 96 07/23/17 04:25 94 40 07/23/17 04:00 40 07/23/17 04:00 99.2 96 16 105/71 (82) 98 07/23/17 04:00 96 07/23/17 02:00 81 07/23/17 01:18 95 40 07/23/17 00:00 99.0 77 18 104/53 (70) 96 07/23/17 00:00 78 07/23/17 00:00 40 07/22/17 22:25 93 40 07/22/17 22:00 78 07/22/17 20:00 98.2 79 20 106/63 (77) 98 07/22/17 20:00 40 07/22/17 20:00 78 07/22/17 19:25 92 40 07/22/17 18:00 93 07/22/17 16:00 88 07/22/17 16:00 98.9 88 22 115/67 (83) 95 07/22/17 15:30 100 40 07/22/17 14:00 91 07/22/17 13:31 50 07/23/17 07/23/17 07/23/17 07:00 15:00 23:00 Intake Total 925 ml Output Total 2800 ml Balance -1875 ml Result Diagram: 07/23/1734407/23/17 034 Laboratory Results Laboratory Tests Test 07/23/17 03:45 07/23/17 04:30 White Blood Count 8.0 TH/MM3 Red Blood Count 3.08 MIL/MM3 Hemoglobin 9.5 GM/DL Hematocrit 27.6 % Mean Corpuscular Volume 89.6 FL Mean Corpuscular Hemoglobin 30.9 PG Mean Corpuscular Hemoglobin Concent 34.5 % Red Cell Distribution Width 25.4 % Platelet Count 202 TH/MM3 Mean Platelet Volume 9.7 FL Neutrophils (%) (Auto) 76.1 % Lymphocytes (%) (Auto) 9.8 % Monocytes (%) (Auto) 11.1 % Eosinophils (%) (Auto) 2.0 % Basophils (%) (Auto) 1.0 % Neutrophils # (Auto) 6.1 TH/MM3 Lymphocytes # (Auto) 0.8 TH/MM3 Monocytes # (Auto) 0.9 TH/MM3 Eosinophils # (Auto) 0.2 TH/MM3 Basophils # (Auto) 0.1 TH/MM3 CBC Comment AUTO DIFF Differential Total Cells Counted 100 Neutrophils % (Manual) 84 % Lymphocytes % 11 % Monocytes % 3 % Eosinophils % 1 % Basophils % 1 % Neutrophils # (Manual) 6.7 TH/MM3 Nucleated Red Blood Cells 11 /100 WBC Differential Comment FINAL DIFF MANUAL Platelet Estimate NORMAL Platelet Morphology Comment NORMAL Target Cells 1+ Acanthocytes OCC Red Cell Morphology Comment Blood Urea Nitrogen 42 MG/DL Creatinine 0.81 MG/DL Random Glucose 77 MG/DL Calcium Level 8.8 MG/DL Phosphorus Level 3.7 MG/DL Magnesium Level 1.8 MG/DL Sodium Level 143 MEQ/L Potassium Level 3.1 MEQ/L Chloride Level 103 MEQ/L Carbon Dioxide Level 29.6 MEQ/L Anion Gap 10 MEQ/L Estimat Glomerular Filtration Rate 93 ML/MIN Blood Gas Puncture Site LT RADIAL Blood Gas Patient Temperature 98.6 Blood Gas HCO3 27 mmol/L Blood Gas Base Excess 3.3 mmol/L Blood Gas Oxygen Saturation 91 % Arterial Blood pH 7.48 Arterial Blood Partial Pressure CO2 37 mmHg Arterial Blood Partial Pressure O2 70 mmHg Arterial Blood Oxygen Content 12.0 Vol % Arterial Blood Carboxyhemoglobin 2.8 % Arterial Blood Methemoglobin 1.8 % Blood Gas Hemoglobin 9.4 G/DL Oxygen Delivery Device VENTILATOR Blood Gas Ventilator Setting 16/550/IT1.0/5PEEP Blood Gas Inspired Oxygen 40 % Culture Results Microbiology Date/Time Source Procedure Growth Status 07/22/17 19:00 Sputum Endotracheal Gram Stain - Final Resulted 07/22/17 19:00 Sputum Culture - Preliminary Staphylococcus Aureus Resulted Imaging Studies Last 24 hours Impressions Chest X-Ray 07/23/17 0600 Signed Impressions: Service Date/Time: Sunday, July 23, 2017 03:55 - CONCLUSION: 1. Support apparatus in good position. Bilateral mostly basilar airspace consolidation similar to July 22. Arpan Harman MD Administered Medications Medications (Trade) Dose Ordered Sig/Gini Route PRN Reason Start Time Stop Time Status Last Admin Dose Admin Sodium Chloride (NS Flush) 2 ml BID IV FLUSH 07/18/17 21:00 07/23/17 08:02 Morphine Sulfate (Morphine Inj) 2 mg Q3H PRN IV PUSH BREAKTHROUGH PAIN 07/18/17 21:45 07/21/17 14:12 Benztropine Mesylate (Cogentin) 1 mg BID PO 07/19/17 09:00 07/23/17 07:57 Citalopram Hydrobromide (CeleXA) 20 mg DAILY PO 07/19/17 09:00 07/23/17 07:56 Folic Acid (Folate) 1 mg DAILY PO 07/19/17 09:00 07/23/17 07:57 Hydroxyurea (Hydrea) 1,000 mg DAILY PO 07/19/17 09:00 07/23/17 08:00 Paliperidone Palmitate (Invega Er) 3 mg DAILY PO 07/19/17 09:00 07/23/17 08:01 Furosemide (Lasix Inj) 20 mg BID@ IV PUSH 07/19/17 09:00 07/23/17 11:06 Rivaroxaban (Xarelto) 20 mg DAILY PO 07/19/17 09:00 07/23/17 07:56 Patient Own Medication PT OWN MED: Deferasi... DAILY PO 07/19/17 11:00 07/23/17 09:00 Acetaminophen/ Hydrocodone Bitart ([place] 10-325 Mg) 2 tab Q4H PRN PO PAIN 6-10 07/21/17 08:00 07/22/17 15:17 Chlorhexidine Gluconate (Peridex 0.12% Liq) 15 ml BID@08,20 MT 07/21/17 20:00 07/23/17 08:02 Propofol 100 ml @ 3.519 mls/ hr TITRATE PRN IV SEDATION 07/21/17 17:45 07/23/17 10:16 Potassium Chloride 100 ml @ 25 mls/hr UNSCH PRN IV ELECTROLYTE REPLACEMENT 07/23/17 11:00 07/23/17 11:05 Objective Remarks GENERAL: Obese female, supine in hospital bed, sedated, intubated. SKIN: Warm and dry. HEAD: Normocephalic. EYES: No injection or drainage. NECK: Supple, trachea midline. CARDIOVASCULAR: Regular rate and rhythm RESPIRATORY: anterior resendiz with scattered rhonchi GASTROINTESTINAL: Abdomen soft, non-tender, nondistended. EXTREMITIES: No cyanosis. RLE with edema. NEUROLOGICAL: intubated, sedated Assessment/Plan Problem List: (1) Sickle cell anemia ICD Codes: D57.1 - Sickle-cell disease without crisis Status: Chronic Plan: 07/23: check bilirubin today. monitor CBC. --CXR-->shows enlargement of the cardiac silhouette. follows with a human resources department supervisor in [place]. (2) CHF (congestive heart failure) ICD Codes: I50.9 - Heart failure, unspecified Status: Acute Plan: --cardiology following (3) Iron overload ICD Codes: E83.19 - Other disorders of iron metabolism Plan: --takes [facility] outpatient (4) Right leg DVT ICD Codes: I82.401 - Acute embolism and thrombosis of unspecified deep veins of right lower extremity Plan: --on xarelto. --s/p IVC filter placement. (5) Obstructive sleep apnea hypopnea, severe ICD Codes: G47.33 - Obstructive sleep apnea (adult) (pediatric) Status: Chronic Assessment 42y/o female with sicle cell anemia admitted in vasoocclusive crises. h/o DVT in the right lower extremity-->on Xarelto and had an IVC filter placed. h/o Sickle-cell anemia with multiple painful crises. Sleep apnea. Congestive heart failure. Schizophrenia. Attending Statement The exam, history, and the medical decision-making described in the above note were completed with the assistance of the mid-level provider. I reviewed and agree with the findings presented. I attest that I had a [id number] encounter with the patient on the same day, and personally performed and documented my assessment and findings in the medical record. sedated and intubated for resp failure. No Tx . H/H stable. continue present plan. Problem Qualifiers (1) Sickle cell anemia: Qualified Codes: D57.00 - Hb-SS disease with crisis, unspecified (2) CHF (congestive heart failure): Qualified Codes: I50.31 - Acute diastolic (congestive) heart failure (3) Right leg DVT: Elsy Pedraza Jul 23, 2017 13:14 Nina Villa MD Jul 23, 2017 15:00
[2017-07-23] MEDS ORDERED: Vancomycin Consult Pharmacy 1 EA OTHER SCH (14:00)
[2017-07-23] MEDS ORDERED: POTASSIUM CHLORIDE 25 MEQ EFFERVESCENT TAB PO SCH (14:00)
--- NOTE | 2017-07-23 14:06 | HHI.CCPN ---
Subjective Remarks/Hospital Course This is a 42 y/o obese female with a history of sickle cell anemia, schizophrenia, sleep apnea on a DVT, with IVC filter and CHF that presented to the [place] ED with progressive dyspnea. She was found to have a hgb of 5.1 and transferred to [facility]. The patient was transfused, imaging studies revealed cardiomegaly and a pericardial effusion at that time. Significant other states patient has been short of breath for a few months and was seen previously one month ago at [facility]. He states she was found to have a DVT in her right lower extremity and placed on Xarelto with an IVC filter placed. The patient's significant other, POA provided information that she has sleep apnea but due to her schizophrenia and claustrophobia she is unable to wear a CPAP at home. She was found to be profoundly anemic with hemoglobin as low as 6.9; level has improved after transfusion. CXR shows cardiomegaly and possible pericardial effusion. VQ scan is within normal limits, EKG did not demonstrate concerning ST changes and troponin is negative. BNP elevated. [facility] consultations were obtained by cardiology pulmonology and pulmonology. Over the last 24 hours the patient continued have respiratory insufficiency and continued to refuse to wear CPAP in the setting of severe obstructive sleep apnea. Critical care medicine was consulted for continued respiratory decompensation and possible intubation. Subjective: 07/22: Acute events overnight. The patient was emergently intubated secondary to respiratory decompensation last evening. Patient noted to have excessive soft tissue Mallampati grade 2, with glidescope.-Currently intubated and sedated CPAP trials to be initiated today. 07/23: Remains intubated sedated. Chest x-ray shows pulmonary vascular congestion and bibasilar infiltrate. Sputum culture with staph aureus, started on vancomycin and Azactam (PCN allergic). Lasix increased to 40 twice daily Objective Vital Signs Date Time Temp Pulse Resp B/P (MAP) Pulse Ox O2 Delivery O2 Flow Rate FiO2 07/23/17 13:00 75 16 129/79 (96) 96 07/23/17 12:00 40 07/23/17 08:00 99.1 07/22/17 07:50 Ventilator 07/21/17 15:59 20.00 Intake and Output 207/23/17 07/24/17 08:00 16:00 00:00 Intake Total 925 ml Output Total 2800 ml Balance -1875 ml Result Diagram: 07/23/17 0345 07/23/17 0345 Other Results Laboratory Tests Test 07/23/17 04:30 Blood Gas Puncture Site LT RADIAL Blood Gas Patient Temperature 98.6 Blood Gas HCO3 27 mmol/L (22-26) Blood Gas Base Excess 3.3 mmol/L (-2-2) Blood Gas Oxygen Saturation 91 % (90-100) Arterial Blood pH 7.48 (7.380-7.420) Arterial Blood Partial Pressure CO2 37 mmHg (38-42) Arterial Blood Partial Pressure O2 70 mmHg (61-120) Arterial Blood Oxygen Content 12.0 Vol % (12.0-20.0) Arterial Blood Carboxyhemoglobin 2.8 % (0-4) Arterial Blood Methemoglobin 1.8 % (0-2) Blood Gas Hemoglobin 9.4 G/DL (12.0-16.0) Oxygen Delivery Device VENTILATOR Blood Gas Ventilator Setting 16/550/IT1.0/5PEEP Blood Gas Inspired Oxygen 40 % Imaging Last Impressions Lung Scan-VQ Nuclear Medicine 07/20/17 0000 Signed Impressions: Service Date/Time: Thursday, July 20, 2017 14:14 - CONCLUSION: Very limited examination secondary to patient's inability to cooperate for the exam. Risk category for pulmonary embolism can therefore not be estimated, however there are no specific findings to specifically elevate likelihood of pulmonary embolism. Moo Rubalcava MD Objective Remarks GENERAL: This is a morbidly obese -[place] female intubated, sedated SKIN: Warm and dry. HEAD: Atraumatic. Normocephalic. EYES: Pupils equal and round. No scleral icterus. No injection or drainage. ENT: Orotracheally intubated NECK: Trachea midline. Unable to assess JVD secondary to body habitus. CARDIOVASCULAR: Normal rate, regular rhythm. RESPIRATORY: No accessory muscle use. Breath sounds equal bilaterally, diminished at the bases with mild wheezing GASTROINTESTINAL: Abdomen soft, obese ,non-tender, nondistended. No guarding. MUSCULOSKELETAL: Extremities without clubbing, cyanosis, bilateral lower extremity edema right calf diameter greater than left. NEUROLOGICAL: Intubated and sedated moves extremities, not following commands on sedation Urinary Catheter: Yes Assessment to: Continue A/P Problem List: (1) Symptomatic anemia ICD Code: D64.9 - Anemia, unspecified Status: Chronic (2) CHF (congestive heart failure) ICD Code: I50.9 - Heart failure, unspecified Status: Acute (3) Schizophrenia ICD Code: F20.9 - Schizophrenia, unspecified Status: Chronic (4) Morbid obesity with BMI of 45.0-49.9, adult ICD Code: E66.01 - Morbid (severe) obesity due to excess calories; Z68.42 - Body mass index (BMI) 45.0-49.9, adult Status: Chronic (5) Obstructive sleep apnea hypopnea, severe ICD Code: G47.33 - Obstructive sleep apnea (adult) (pediatric) Status: Chronic (6) Sickle cell anemia ICD Code: D57.1 - Sickle-cell disease without crisis Status: Chronic Assessment and Plan This is a 42-year-old female in respiratory failure secondary to CHF exacerbation, staph aureus pneumonia and underlying severe obstructive sleep apnea. The patient has multiple comorbidities to include schizophrenia, severe AMBAR and refusing to wear BIPAP. Remains critically ill requiring ventilator support and treatment for pneumonia and CHF Plan by systems: Neurologic: Schizophrenia Chronic Pain secondary to sickle cell disease Continue antipsychotic medications Propofol and fentanyl for sedation and vent synchrony Respiratory: Acute hypercapnic hypoxemic respiratory failure Severe AMBAR 2/7 emergently intubated 8.0 ETT 21 cm @ lip ABGs and chest x-rays as clinically indicated Maintain O2 sat greater than 92% Maintain head of the bed 30-45 Sputum with staph aureus start vancomycin and Azactam Daily CPAP trials as tolerated Cardiovascular: Acute diastolic CHF Cardiology following 2/6 Echo-normal systolic function, mild to moderate TR, mild to moderate AL, Small pericardial effusion Currently on Lasix 20 mg twice a day, increase to 40 every 12, give 20 mg of Lasix additional dose Renal: Maintain Demarco -- Strict I/Os IV Lasix as above FEN/GI: Morbid obesity Renal insufficiency Dietary consult NG tube-and begin tube feeds Nothing by mouth for now patient is at risk for intubation Heme/ID: Sickle cell anemia 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 I have spent in excess of 35 minutes discontinuously in the care and management of this patient. This time is exclusive of procedures, and includes, but is not limited to, evaluation of the patient, review of the medical record, discussions with family, consultants, nursing staff, or respiratory therapy, and documentation in the medical record. Problem Qualifiers (1) CHF (congestive heart failure): Qualified Codes: I50.31 - Acute diastolic (congestive) heart failure (2) Sickle cell anemia: Qualified Codes: D57.00 - Hb-SS disease with crisis, unspecified Reji Cortés MD Jul 23, 2017 14:05
[2017-07-23 15:07] LABS: ALBUMIN 3.3 GM/DL (3.4-5.0); DIRECT BILIRUBIN ADULT 2.5 MG/DL (0.0-0.2)
[2017-07-23 15:08] LABS: INDIRECT BILIRUBIN 2.1 MG/DL (0.0-0.8); TOTAL BILIRUBIN ADULT 4.6 MG/DL (0.2-1.0); TOTAL PROTEIN 8.2 GM/DL (6.4-8.2)
[2017-07-23] MEDS ORDERED: FUROSEMIDE 20 MG/2 ML VIAL IV PUSH ONE (15:20)
[2017-07-23] MEDS ORDERED: VANCOMYCIN INJ 1,250 MG in SODIUM CHLOR 0.9% 250 ML INJ 250 ML IV ONE (16:00)
[2017-07-23] MEDS: POTASSIUM CHLORIDE 25 MEQ EFFERVESCENT TAB PO SCH ×2 (16:12→19:36)
[2017-07-23] MEDS: AZTREONAM INJ 2,000 MG in SODIUM CHLORIDE 0.9% INJ 100 ML IV SCH ×2 (16:13→23:34)
[2017-07-24] VITALS (19 sets, daily range): BP systolic 107–124; BP diastolic 65–75; PULSE 71–104; RESP 12–21; TEMP 98.6–99.2; O2SAT 94–100
[2017-07-24 00:08] LABS: ALBUMIN 3.3 GM/DL (3.4-5.0); ALKALINE PHOSPHATASE 91 U/L (45-117); ALT (GPT) 16 U/L (10-53); AST (GOT) 42 U/L (15-37); BICARBONATE 29.4 MEQ/L (21.0-32.0); BLOOD UREA NITROGEN 31 MG/DL (7-18); CALCIUM 8.5 MG/DL (8.5-10.1); CHLORIDE 106 MEQ/L (98-107); CREATININE 0.81 MG/DL (0.50-1.00); GLOMERULAR FILTRATION RATE 93 ML/MIN (>89); GLUCOSE,RANDOM 74 MG/DL (74-106); SODIUM (NA) 142 MEQ/L (136-145); TOTAL BILIRUBIN ADULT 4.9 MG/DL (0.2-1.0); TOTAL PROTEIN 8.5 GM/DL (6.4-8.2)
[2017-07-24] MEDS: VANCOMYCIN INJ 1,250 MG in SODIUM CHLOR 0.9% 250 ML INJ 250 ML IV SCH ×2 (04:02→16:15)
[2017-07-24] MEDS: PROPOFOL 1000 MG/100 ML INJ 100 ML IV PRN ×2 (05:17→08:45)
--- NOTE | 2017-07-24 06:08 | RADRPT ---
EXAM DATE/TIME: 07/24/2017 04:05 [place] COMPARISON: CHEST SINGLE AP, July 23, 2017, 3:55. INDICATIONS : Shortness of breath, possible pulmonary disease. MEDICAL HISTORY : Chronic obstructive pulmonary disease. Sickle Cell disease. SURGICAL HISTORY : [id number] ENCOUNTER: Subsequent ACUITY: 1 week PAIN SCORE: Non-responsive. LOCATION: Bilateral chest FINDINGS: A single view of the chest demonstrates endotracheal tube in good position. NG enters stomach. Left c entral line in superior vena cava. Bilateral mostly basilar airspace disease similar to July 23. CONCLUSION: 1. Support apparatus in good position. Bilateral airspace disease similar to July 23. Arpan Harman MD on July 24, 2017 at 6:06 Board Certified Radiologist. This report was verified electronically.
[2017-07-24] MEDS: PALIPERIDONE ER 3 MG TAB PO SCH (08:46)
[2017-07-24] MEDS: BENZTROPINE MESYLATE 1 MG TAB PO SCH ×2 (08:46→20:15)
[2017-07-24] MEDS: FUROSEMIDE 20 MG/2 ML VIAL IV PUSH SCH ×2 (08:46→18:02)
[2017-07-24] MEDS: FOLIC ACID 1 MG TAB PO SCH (08:46)
[2017-07-24] MEDS: AZTREONAM INJ 2,000 MG in SODIUM CHLORIDE 0.9% INJ 100 ML IV SCH ×3 (08:46→23:48)
[2017-07-24] MEDS: POTASSIUM CHLORIDE 25 MEQ EFFERVESCENT TAB PO SCH ×2 (08:46→20:16)
[2017-07-24] MEDS: SODIUM CHLORIDE 0.9% FLUSH 10 ML FLUSH IV FLUSH SCH ×2 (08:48→20:15)
[2017-07-24] MEDS: HYDROXYUREA 500 MG CAP PO SCH (08:48)
[2017-07-24] MEDS: CITALOPRAM HYDROBROMIDE 20 MG TAB PO SCH (08:48)
[2017-07-24] MEDS: DEFERASIROX 360 MG PO SCH (08:49)
[2017-07-24] MEDS: RIVAROXABAN 20 MG TAB PO SCH (08:49)
[2017-07-24] MEDS: CHLORHEXIDINE 0.12% (ORAL KIT) 15 ML CUP MT SCH ×2 (08:50→20:00)
[2017-07-24 08:51] LABS: ALBUMIN 3.1 GM/DL (3.4-5.0); AST (GOT) 44 U/L (15-37); BICARBONATE 29.5 MEQ/L (21.0-32.0); BLOOD UREA NITROGEN 25 MG/DL (7-18); CALCIUM 8.9 MG/DL (8.5-10.1); CHLORIDE 108 MEQ/L (98-107); CREATININE 0.79 MG/DL (0.50-1.00); GLOMERULAR FILTRATION RATE 96 ML/MIN (>89); GLUCOSE,RANDOM 85 MG/DL (74-106); SODIUM (NA) 146 MEQ/L (136-145)
[2017-07-24 08:52] LABS: ALT (GPT) 14 U/L (10-53)
[2017-07-24 08:54] LABS: ALKALINE PHOSPHATASE 90 U/L (45-117); TOTAL BILIRUBIN ADULT 4.7 MG/DL (0.2-1.0); TOTAL PROTEIN 8.1 GM/DL (6.4-8.2)
--- NOTE | 2017-07-24 11:09 | HHI.CCPN ---
Subjective Remarks/Hospital Course This is a 42 y/o obese female with a history of sickle cell anemia, schizophrenia, sleep apnea on a DVT, with IVC filter and CHF that presented to the [place] ED with progressive dyspnea. She was found to have a hgb of 5.1 and transferred to [facility]. The patient was transfused, imaging studies revealed cardiomegaly and a pericardial effusion at that time. Significant other states patient has been short of breath for a few months and was seen previously one month ago at [facility]. He states she was found to have a DVT in her right lower extremity and placed on Xarelto with an IVC filter placed. The patient's significant other, POA provided information that she has sleep apnea but due to her schizophrenia and claustrophobia she is unable to wear a CPAP at home. She was found to be profoundly anemic with hemoglobin as low as 6.9; level has improved after transfusion. CXR shows cardiomegaly and possible pericardial effusion. VQ scan is within normal limits, EKG did not demonstrate concerning ST changes and troponin is negative. BNP elevated. [facility] consultations were obtained by cardiology pulmonology and pulmonology. Over the last 24 hours the patient continued have respiratory insufficiency and continued to refuse to wear CPAP in the setting of severe obstructive sleep apnea. Critical care medicine was consulted for continued respiratory decompensation and possible intubation. Subjective: 07/22: Acute events overnight. The patient was emergently intubated secondary to respiratory decompensation last evening. Patient noted to have excessive soft tissue Mallampati grade 2, with glidescope.-Currently intubated and sedated CPAP trials to be initiated today. 07/23: Remains intubated sedated. Chest x-ray shows pulmonary vascular congestion and bibasilar infiltrate. Sputum culture with staph aureus, started on vancomycin and Azactam (PCN allergic). Lasix increased to 40 twice daily 07/24: Remains intubated and minimally sedated but wakes up easily follows commands. On CPAP but slightly tachypneic. Copious amount of ETT secretions. CXR remains unchanged. Urine output 5 L with increased dose of Lasix Objective Vital Signs Date Time Temp Pulse Resp B/P (MAP) Pulse Ox O2 Delivery O2 Flow Rate FiO2 07/24/17 10:02 100 40 07/24/17 06:00 89 07/24/17 04:00 99.2 16 118/73 (88) 07/22/17 07:50 Ventilator 07/21/17 15:59 20.00 Intake and Output 07/24/17 07/24/17 07/25/17 08:00 16:00 00:00 Intake Total 707.0 ml Output Total 1800 ml Balance -1093.0 ml Result Diagram: 07/23/17 0345 07/24/17 0745 Other Results Laboratory Tests Test 07/23/17 14:00 Blood Gas Puncture Site RT RADIAL Blood Gas Patient Temperature 98.6 Blood Gas HCO3 22 mmol/L (22-26) Blood Gas Base Excess -2.4 mmol/L (-2-2) Blood Gas Oxygen Saturation 82 % (90-100) Arterial Blood pH 7.36 (7.380-7.420) Arterial Blood Partial Pressure CO2 40 mmHg (38-42) Arterial Blood Partial Pressure O2 56 mmHg (61-120) Arterial Blood Oxygen Content 14.0 Vol % (12.0-20.0) Arterial Blood Carboxyhemoglobin 0.5 % (0-4) Arterial Blood Methemoglobin 1.2 % (0-2) Blood Gas Hemoglobin 12.2 G/DL (12.0-16.0) Oxygen Delivery Device VENTILATOR Blood Gas Ventilator Setting PRVC16/550/+5/1.0 Blood Gas Inspired Oxygen 40 % Imaging Last Impressions Lung Scan-VQ Nuclear Medicine 07/20/17 0000 Signed Impressions: Service Date/Time: Thursday, July 20, 2017 14:14 - CONCLUSION: Very limited examination secondary to patient's inability to cooperate for the exam. Risk category for pulmonary embolism can therefore not be estimated, however there are no specific findings to specifically elevate likelihood of pulmonary embolism. Moo Rubalcava MD Objective Remarks GENERAL: This is a morbidly obese -[place] female intubated, sedated SKIN: Warm and dry. HEAD: Atraumatic. Normocephalic. EYES: Pupils equal and round. No scleral icterus. No injection or drainage. ENT: Orotracheally intubated, large amount of yellow ET tube secretions NECK: Trachea midline. Unable to assess JVD secondary to body habitus. CARDIOVASCULAR: Normal rate, regular rhythm. RESPIRATORY: No accessory muscle use. Breath sounds equal bilaterally, diminished at the bases with few rhonchi GASTROINTESTINAL: Abdomen soft, obese ,non-tender, nondistended. No guarding. MUSCULOSKELETAL: Extremities without clubbing, cyanosis, bilateral lower extremity edema right calf diameter greater than left. NEUROLOGICAL: Intubated and sedated moves extremities, following commands on sedation Urinary Catheter: Yes Assessment to: Continue A/P Problem List: (1) Acute respiratory failure ICD Code: J96.00 - Acute respiratory failure, unspecified whether with hypoxia or hypercapnia (2) Symptomatic anemia ICD Code: D64.9 - Anemia, unspecified Status: Chronic (3) CHF (congestive heart failure) ICD Code: I50.9 - Heart failure, unspecified Status: Acute (4) Schizophrenia ICD Code: F20.9 - Schizophrenia, unspecified Status: Chronic (5) Morbid obesity with BMI of 45.0-49.9, adult ICD Code: E66.01 - Morbid (severe) obesity due to excess calories; Z68.42 - Body mass index (BMI) 45.0-49.9, adult Status: Chronic (6) Obstructive sleep apnea hypopnea, severe ICD Code: G47.33 - Obstructive sleep apnea (adult) (pediatric) Status: Chronic (7) Sickle cell anemia ICD Code: D57.1 - Sickle-cell disease without crisis Status: Chronic Assessment and Plan This is a 42-year-old female in respiratory failure secondary to CHF exacerbation, staph aureus pneumonia and underlying severe obstructive sleep apnea. The patient has multiple comorbidities to include schizophrenia, severe AMBAR and refusing to wear BIPAP. Remains critically ill requiring ventilator support and treatment for pneumonia and CHF Plan by systems: Neurologic: Schizophrenia Chronic Pain secondary to sickle cell disease Continue antipsychotic medications, use Haldol PRN for agitation Propofol and fentanyl for sedation and vent synchrony Daily sedation location Respiratory: Acute hypercapnic hypoxemic respiratory failure Severe AMBAR MSSA pneumonia 07/21 emergently intubated 8.0 ETT 21 cm @ lip ABGs and chest x-rays as clinically indicated Maintain O2 sat greater than 92% Maintain head of the bed 30-45 Sputum with staph aureus started vancomycin and Azactam / Daily CPAP trials as tolerated Cardiovascular: Acute diastolic CHF Cardiology following 2/ Echo-normal systolic function, mild to moderate TR, mild to moderate ND, Small pericardial effusion Currently on Lasix 40 every 12 Free water flushes Renal: Maintain Demarco -- Strict I/Os IV Lasix as above FEN/GI: Morbid obesity Renal insufficiency Dietary consult NG tube-and begin tube feeds Heme/ID: Sickle cell anemia 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 I have spent in excess of 32 minutes discontinuously in the care and management of this patient. This time is exclusive of procedures, and includes, but is not limited to, evaluation of the patient, review of the medical record, discussions with family, consultants, nursing staff, or respiratory therapy, and documentation in the medical record. Problem Qualifiers (1) CHF (congestive heart failure): Qualified Codes: I50.31 - Acute diastolic (congestive) heart failure (2) Sickle cell anemia: Qualified Codes: D57.00 - Hb-SS disease with crisis, unspecified Reji Cortés MD Jul 24, 2017 11:09
[2017-07-24] MEDS ORDERED: HALOPERIDOL LACTATE 5 MG/ML AMP IV PRN (11:15)
[2017-07-24] MEDS: ICU - POTASSIUM CHLORIDE/AQUEOUS SOLN 40 MEQ/100 ML IVPB IV PRN ×2 (11:47→16:00)
--- NOTE | 2017-07-24 11:55 | PD.ONC.PN ---
Subjective Subjective Remarks Afebrile Pt on CPAP Currently getting washed up by nursing staff Objective Data Date Time Temp Pulse Resp B/P (MAP) Pulse Ox O2 Delivery O2 Flow Rate FiO2 07/24/17 10:02 100 40 07/24/17 10:00 99 07/24/17 09:14 99 40 07/24/17 09:10 40 07/24/17 09:05 40 07/24/17 08:00 81 07/24/17 08:00 99.0 81 16 118/75 (89) 99 07/24/17 07:06 99 40 07/24/17 06:00 89 07/24/17 04:30 100 40 07/24/17 04:00 76 07/24/17 04:00 40 07/24/17 04:00 99.2 76 16 118/73 (88) 100 07/24/17 02:00 84 07/24/17 01:10 99 40 07/24/17 00:00 40 07/24/17 00:00 71 07/24/17 00:00 98.6 71 16 124/74 (91) 100 07/23/17 22:09 99 40 07/23/17 22:00 75 07/23/17 20:00 75 07/23/17 20:00 99.2 75 16 134/73 (93) 96 07/23/17 20:00 40 07/23/17 19:15 94 40 07/23/17 19:00 75 07/23/17 18:36 79 07/23/17 18:00 79 07/23/17 17:00 86 16 95 07/23/17 16:00 40 07/23/17 16:00 92 07/23/17 16:00 98.9 92 31 97 07/23/17 15:00 92 07/23/17 14:01 79 07/23/17 14:00 40 07/23/17 14:00 78 07/23/17 14:00 96 40 07/23/17 13:00 75 16 129/79 (96) 96 07/23/17 13:00 75 07/23/17 12:30 79 16 114/67 (83) 86 07/23/17 12:30 79 07/23/17 12:00 72 07/23/17 12:00 72 21 129/77 (94) 97 07/23/17 12:00 40 07/24/17 07/24/17 07/24/17 07:00 15:00 23:00 Intake Total 807.0 ml Output Total 1800 ml Balance -993.0 ml Result Diagram: 07/23/17 0345 07/24/17 0745 Laboratory Results Laboratory Tests Test 07/23/17 14:00 07/23/17 21:30 07/24/17 07:45 07/24/17 11:10 Blood Gas Puncture Site RT RADIAL LT RADIAL Blood Gas Patient Temperature 98.6 98.6 Blood Gas HCO3 22 mmol/L 29 mmol/L Blood Gas Base Excess -2.4 mmol/L 4.6 mmol/L Blood Gas Oxygen Saturation 82 % 92 % Arterial Blood pH 7.36 7.42 Arterial Blood Partial Pressure CO2 40 mmHg 45 mmHg Arterial Blood Partial Pressure O2 56 mmHg 85 mmHg Arterial Blood Oxygen Content 14.0 Vol % 12.6 Vol % Arterial Blood Carboxyhemoglobin 0.5 % 2.7 % Arterial Blood Methemoglobin 1.2 % 1.7 % Blood Gas Hemoglobin 12.2 G/DL 9.7 G/DL Oxygen Delivery Device VENTILATOR VENTILATOR Blood Gas Ventilator Setting PRVC16/550/+5/1.0 CPAP 5 PS5 Blood Gas Inspired Oxygen 40 % 40 % Blood Urea Nitrogen 31 MG/DL 25 MG/DL Creatinine 0.81 MG/DL 0.79 MG/DL Random Glucose 74 MG/DL 85 MG/DL Total Protein 8.5 GM/DL 8.1 GM/DL Albumin 3.3 GM/DL 3.1 GM/DL Calcium Level 8.5 MG/DL 8.9 MG/DL Alkaline Phosphatase 91 U/L 90 U/L Aspartate Amino Transf (AST/SGOT) 42 U/L 44 U/L Alanine Aminotransferase (ALT/SGPT) 16 U/L 14 U/L Total Bilirubin 4.9 MG/DL 4.7 MG/DL Sodium Level 142 MEQ/L 146 MEQ/L Potassium Level 3.8 MEQ/L 3.2 MEQ/L Chloride Level 106 MEQ/L 108 MEQ/L Carbon Dioxide Level 29.4 MEQ/L 29.5 MEQ/L Anion Gap 7 MEQ/L 9 MEQ/L Estimat Glomerular Filtration Rate 93 ML/MIN 96 ML/MIN Culture Results Microbiology Date/Time Source Procedure Growth Status 07/22/17 19:00 Sputum Endotracheal Gram Stain - Final Resulted 07/22/17 19:00 Sputum Culture - Preliminary Staphylococcus Aureus Resulted Imaging Studies Last 24 hours Impressions Chest X-Ray 07/24/17 0600 Signed Impressions: Service Date/Time: Monday, July 24, 2017 04:05 - CONCLUSION: 1. Support apparatus in good position. Bilateral airspace disease similar to July 23. Arpan Harman MD Administered Medications Medications (Trade) Dose Ordered Sig/Gini Route PRN Reason Start Time Stop Time Status Last Admin Dose Admin Sodium Chloride (NS Flush) 2 ml BID IV FLUSH 07/18/17 21:00 07/24/17 08:48 Morphine Sulfate (Morphine Inj) 2 mg Q3H PRN IV PUSH BREAKTHROUGH PAIN 07/18/17 21:45 07/21/17 14:12 Benztropine Mesylate (Cogentin) 1 mg BID PO 07/19/17 09:00 07/24/17 08:46 Citalopram Hydrobromide (CeleXA) 20 mg DAILY PO 07/19/17 09:00 07/24/17 08:48 Folic Acid (Folate) 1 mg DAILY PO 07/19/17 09:00 07/24/17 08:46 Hydroxyurea (Hydrea) 1,000 mg DAILY PO 07/19/17 09:00 07/24/17 08:48 Paliperidone Palmitate (Invega Er) 3 mg DAILY PO 07/19/17 09:00 07/24/17 08:46 Rivaroxaban (Xarelto) 20 mg DAILY PO 07/19/17 09:00 07/24/17 08:49 Patient Own Medication PT OWN MED: Deferasi... DAILY PO 07/19/17 11:00 07/24/17 08:49 Acetaminophen/ Hydrocodone Bitart ([place] 10-325 Mg) 2 tab Q4H PRN PO PAIN 6-10 07/21/17 08:00 07/22/17 15:17 Chlorhexidine Gluconate (Peridex 0.12% Liq) 15 ml BID@08,20 MT 07/21/17 20:00 07/24/17 08:50 Propofol 100 ml @ 3.519 mls/ hr TITRATE PRN IV SEDATION 07/21/17 17:45 07/24/17 08:45 Potassium Chloride 100 ml @ 25 mls/hr UNSCH PRN IV ELECTROLYTE REPLACEMENT 07/23/17 11:00 07/24/17 11:47 Aztreonam 2000 mg/ Sodium Chloride 100 ml @ 200 mls/hr Q8H IV 07/23/17 16:00 07/24/17 08:46 Furosemide (Lasix Inj) 40 mg BID@09,18 IV PUSH 07/23/17 18:00 07/24/17 08:46 Vancomycin HCl 1250 mg/Sodium Chloride 262.5 ml @ 250 mls/hr Q12H IV 07/24/17 04:00 07/24/17 04:02 Potassium Bicarb/ Potassium Chloride (K-Lyte Cl Eff) 25 meq Q12HR PO 07/23/17 16:00 07/24/17 08:46 Objective Remarks GENERAL: Obese female, supine in hospital bed, sedated, intubated. SKIN: Warm and dry. HEAD: Normocephalic. EYES: No injection or drainage. NECK: Supple, trachea midline. CARDIOVASCULAR: Regular rate and rhythm RESPIRATORY: On CPAP trials, O2 at 40% GASTROINTESTINAL: Abdomen soft, non-tender, nondistended. EXTREMITIES: No cyanosis. RLE with edema. NEUROLOGICAL: intubated, sedated Assessment/Plan Problem List: (1) Sickle cell anemia ICD Codes: D57.1 - Sickle-cell disease without crisis Status: Chronic Plan: --CXR-->shows enlargement of the cardiac silhouette. follows with a sales representative business courses in [place]. (2) CHF (congestive heart failure) ICD Codes: I50.9 - Heart failure, unspecified Status: Acute Plan: --cardiology following (3) Iron overload ICD Codes: E83.19 - Other disorders of iron metabolism Plan: --takes [facility] outpatient (4) Right leg DVT ICD Codes: I82.401 - Acute embolism and thrombosis of unspecified deep veins of right lower extremity Plan: --on xarelto. --s/p IVC filter placement. (5) Obstructive sleep apnea hypopnea, severe ICD Codes: G47.33 - Obstructive sleep apnea (adult) (pediatric) Status: Chronic Assessment 42y/o female with sicle cell anemia admitted in vasoocclusive crises. h/o DVT in the right lower extremity-->on Xarelto and had an IVC filter placed. h/o Sickle-cell anemia with multiple painful crises. Sleep apnea. Congestive heart failure. Schizophrenia. Plan 1. Continue to monitor CXR for ACS. 2. Monitor CBC and transfuse as needed. 3. Monitor for bleeding while on the Xarelto. Attending Statement The exam, history, and the medical decision-making described in the above note were completed with the assistance of the mid-level provider. I reviewed and agree with the findings presented. I attest that I had a [id number] encounter with the patient on the same day, and personally performed and documented my assessment and findings in the medical record. Pt is extubated. +SOB. No CP. CXR stable. Hgb stable and no obvious vaso occlusive crisis noted. Continue anticoagulation. Problem Qualifiers (1) Sickle cell anemia: Qualified Codes: D57.00 - Hb-SS disease with crisis, unspecified (2) CHF (congestive heart failure): Qualified Codes: I50.31 - Acute diastolic (congestive) heart failure (3) Right leg DVT: Jessica Malin Jul 24, 2017 11:55 Meir Bronson MD Jul 24, 2017 13:52
[2017-07-24] MEDS: ACETAMINOPHEN/HYDROcodone 325 MG/10 MG TAB PO PRN ×3 (12:39→20:12)
[2017-07-24] MEDS ORDERED: DEXAMETHASONE SOD PHOS 20 MG/5 ML VIAL ONE (12:45)
[2017-07-24] MEDS ORDERED: RESP: RACEPINEPHRINE 2.25% 0.5 ML NEB NEB ONE (13:00)
[2017-07-24] MEDS ORDERED: DEXAMETHASONE SOD PHOS 20 MG/5 ML VIAL IV PUSH ONE (13:00)
--- NOTE | 2017-07-24 14:40 | HHI.PR ---
Subjective Remarks Patient remains intubated, but is awake and appears comfortable following reduction of sedation. She answers yes/no questions. The plan according to the nurse at bedside is to try her again on BiPap today. Objective Vitals Vital Signs Date Time Temp Pulse Resp B/P (MAP) Pulse Ox O2 Delivery O2 Flow Rate FiO2 07/24/17 12:12 94 Nasal Cannula 4 07/24/17 12:12 94 Nasal Cannula 4.00 07/24/17 10:30 40 07/24/17 10:02 100 40 07/24/17 10:00 99 07/24/17 09:14 99 40 07/24/17 09:10 40 07/24/17 09:05 40 07/24/17 08:00 81 07/24/17 08:00 99.0 81 16 118/75 (89) 99 07/24/17 07:06 99 40 07/24/17 06:00 89 07/24/17 04:30 100 40 07/24/17 04:00 76 07/24/17 04:00 40 07/24/17 04:00 99.2 76 16 118/73 (88) 100 07/24/17 02:00 84 07/24/17 01:10 99 40 07/24/17 00:00 40 07/24/17 00:00 71 07/24/17 00:00 98.6 71 16 124/74 (91) 100 07/23/17 22:09 99 40 07/23/17 22:00 75 07/23/17 20:00 75 07/23/17 20:00 99.2 75 16 134/73 (93) 96 07/23/17 20:00 40 07/23/17 19:15 94 40 07/23/17 19:00 75 07/23/17 18:36 79 07/23/17 18:00 79 07/23/17 17:00 86 16 95 07/23/17 16:00 40 07/23/17 16:00 92 07/23/17 16:00 98.9 92 31 97 07/23/17 15:00 92 I/O 07/23/17 07/23/17 07/23/17 07/24/17 07/24/17 07/24/17 07:00 15:00 23:00 07:00 15:00 23:00 Intake Total 925 ml 850 ml 807.0 ml Output Total 2800 ml 3200 ml 1800 ml Balance -1875 ml -2350 ml -993.0 ml Intake Oral 0 ml IV Total 925 ml 650 ml 607.0 ml Other 200 ml 200 ml Output Urine Total 2800 ml 3200 ml 1800 ml # Bowel Movements 0 2 Result Diagram: 07/23/17 0345 07/24/17 0745 Imaging Last 24 hours Impressions Chest X-Ray 07/24/17 0600 Signed Impressions: Service Date/Time: Monday, July 24, 2017 04:05 - CONCLUSION: 1. Support apparatus in good position. Bilateral airspace disease similar to July 23. Arpan Harman MD Objective Remarks GENERAL: Overweight, alert, seemingly oriented but still intubated. SKIN: Warm and dry. HEAD: Normocephalic. EYES: No scleral icterus. No injection or drainage. NECK: Supple, trachea midline. No JVD or lymphadenopathy. CARDIOVASCULAR: Borderline tachycardia, without murmurs, gallops, or rubs. RESPIRATORY: Anterior congestive sounds, rales, bases have transmitted sounds GASTROINTESTINAL: Abdomen soft, non-tender, nondistended. EXTREMITIES: No cyanosis, or edema. NEUROLOGICAL: Awake, alert, no focal deficits A/P Problem List: (1) Symptomatic anemia ICD Code: D64.9 - Anemia, unspecified Status: Chronic (2) CHF (congestive heart failure) ICD Code: I50.9 - Heart failure, unspecified Status: Acute (3) Sickle cell anemia ICD Code: D57.1 - Sickle-cell disease without crisis Status: Chronic Assessment and Plan Sickle Cell Crisis with Respiratory Failure Still on a breathing machine this morning. Critical Care attempting to wean from intubation with testing on CPAP, appreciate assistance Will follow her daily, routine labwork, continue IVF hydration and Oxygen for treatment of crisis Hematology following Pneumonia, MSSA Continue Vancomycin and Azactam started 07/23 Consider sickle cell disease Intubated on 07/21 Acute Diastolic CHF Lasix 40 Q12h Appreciate Cardiology following ECHO shows normal EF on 07/20 h/o Schizophrenia Continuing home dose of antipsychotic meds Will address psych affect when she is extubated Haldon prn for agitation h/o Sleep Apnea Allegedly she is non-compliant with home use of her BIPAP, which logically is a risk factor with Sickle Cell Crisis occurrences h/o Iron Overload Appreciate Hematology following DVT Prophylaxis h/o DVT Continue Xarelto GI Prophylaxis Continue Famotidine Problem Qualifiers (1) CHF (congestive heart failure): Qualified Codes: I50.31 - Acute diastolic (congestive) heart failure (2) Sickle cell anemia: Qualified Codes: D57.00 - Hb-SS disease with crisis, unspecified Didier Gibbs MD Jul 24, 2017 14:40
[2017-07-24] MEDS: metroNIDAZOLE 500 MG TAB PO SCH ×2 (18:02→23:47)
[2017-07-25] VITALS (14 sets, daily range): BP systolic 96–121; BP diastolic 60–70; PULSE 73–94; RESP 10–21; TEMP 98.6–99.2; O2SAT 89–98
[2017-07-25] MEDS: ACETAMINOPHEN/HYDROcodone 325 MG/10 MG TAB PO PRN ×2 (01:38→06:43)
[2017-07-25] MEDS: VANCOMYCIN INJ 1,250 MG in SODIUM CHLOR 0.9% 250 ML INJ 250 ML IV SCH (03:38)
[2017-07-25] MEDS ORDERED: PHARMACY ORDERED LAB ONE (03:45)
[2017-07-25 04:47] LABS: AUTOMATED NEUTROPHIL # 9.4 TH/MM3 (1.8-7.7); BASOPHIL % 0.1 % (0.0-2.0); HEMATOCRIT 27.3 % (35.0-46.0); HEMOGLOBIN 9.2 GM/DL (11.6-15.3); LYMPH % 5.1 % (9.0-44.0); LYMPHOCYTE # 0.6 TH/MM3 (1.0-4.8); MEAN CORPUSCULAR HEMOGLOBIN 31.9 PG (27.0-34.0); MEAN CORPUSCULAR HGB CONC 33.9 % (32.0-36.0); MEAN PLATELET VOLUME 10.6 FL (7.0-11.0); MONO % 9.2 % (0.0-8.0); NEUT % 85.6 % (16.0-70.0); PLATELET COUNT 158 TH/MM3 (150-450); RED CELL DISTRIBUTION WIDTH 27.2 % (11.6-17.2)
[2017-07-25 05:25] LABS: ALBUMIN 3.6 GM/DL (3.4-5.0); ALT (GPT) 19 U/L (10-53); AST (GOT) 45 U/L (15-37); BICARBONATE 29.3 MEQ/L (21.0-32.0); BLOOD UREA NITROGEN 28 MG/DL (7-18); CALCIUM 8.1 MG/DL (8.5-10.1); GLOMERULAR FILTRATION RATE 83 ML/MIN (>89); GLUCOSE,RANDOM 157 MG/DL (74-106); MAGNESIUM 1.7 MG/DL (1.5-2.5)
--- NOTE | 2017-07-25 05:32 | RADRPT ---
EXAM DATE/TIME: 07/25/2017 03:54 [place] COMPARISON: CHEST SINGLE AP, July 24, 2017, 4:05. INDICATIONS : Shortness of breath MEDICAL HISTORY : Chronic obstructive pulmonary disease. Sickle Cell disease. SURGICAL HISTORY : Infusaport ENCOUNTER: Subsequent ACUITY: 1 week PAIN SCORE: Non-responsive. LOCATION: Bilateral chest FINDINGS: A single view of the chest demonstrates a left-sided port with tip in superior vena cava. Global card iomegaly with bilateral mostly basilar airspace disease similar to July 24. No pneumothorax. CONCLUSION: 1. Interval removal of endotracheal tube and nasogastric tube. Global cardiomegaly with stable basila r opacity. Arpan Harman MD on July 25, 2017 at 5:29 Board Certified Radiologist. This report was verified electronically.
[2017-07-25] MEDS: metroNIDAZOLE 500 MG TAB PO SCH ×3 (06:36→20:59)
[2017-07-25 06:41] LABS: ALKALINE PHOSPHATASE 97 U/L (45-117); CHLORIDE 104 MEQ/L (98-107); SODIUM (NA) 140 MEQ/L (136-145); TOTAL BILIRUBIN ADULT 4.5 MG/DL (0.2-1.0); TOTAL PROTEIN 9.1 GM/DL (6.4-8.2)
[2017-07-25 07:31] LABS: BANDS 1 % (0-6); CORRECTED NUCLEATED RBC 4 /100 WBC (0-0); LYMPHOCYTES 3 % (9-44); MONOCYTES 10 % (0-8); NEUTROPHIL # MANUAL DIFF 9.6 TH/MM3 (1.8-7.7); NUCLEATED RED BLOOD CELL 4 (0-0); POLYS (SEG NEUTROPHILS) 86 % (16-70)
[2017-07-25 07:32] LABS: ACANTHOCYTES OCC (NORMAL); HOWELL-JOLLY BODIES PRESENT (NONE SEEN)
[2017-07-25 07:34] LABS: TARGET CELLS 1+ (NORMAL)
[2017-07-25] MEDS: CHLORHEXIDINE 0.12% (ORAL KIT) 15 ML CUP MT SCH ×2 (08:00→20:00)
--- NOTE | 2017-07-25 08:10 | HHI.CCPN ---
Subjective Remarks/Hospital Course This is a 42 y/o obese female with a history of sickle cell anemia, schizophrenia, sleep apnea on a DVT, with IVC filter and CHF that presented to the May ED with progressive dyspnea. She was found to have a hgb of 5.1 and transferred to [facility]. The patient was transfused, imaging studies revealed cardiomegaly and a pericardial effusion at that time. Significant other states patient has been short of breath for a few months and was seen previously one month ago at [facility]. He states she was found to have a DVT in her right lower extremity and placed on Xarelto with an IVC filter placed. The patient's significant other, POA provided information that she has sleep apnea but due to her schizophrenia and claustrophobia she is unable to wear a CPAP at home. She was found to be profoundly anemic with hemoglobin as low as 6.9; level has improved after transfusion. CXR shows cardiomegaly and possible pericardial effusion. VQ scan is within normal limits, EKG did not demonstrate concerning ST changes and troponin is negative. BNP elevated. [facility] consultations were obtained by cardiology pulmonology and pulmonology. Over the last 24 hours the patient continued have respiratory insufficiency and continued to refuse to wear CPAP in the setting of severe obstructive sleep apnea. Critical care medicine was consulted for continued respiratory decompensation and possible intubation. Subjective: 07/22: Acute events overnight. The patient was emergently intubated secondary to respiratory decompensation last evening. Patient noted to have excessive soft tissue Mallampati grade 2, with glidescope.-Currently intubated and sedated CPAP trials to be initiated today. 07/23: Remains intubated sedated. Chest x-ray shows pulmonary vascular congestion and bibasilar infiltrate. Sputum culture with staph aureus, started on vancomycin and Azactam (PCN allergic). Lasix increased to 40 twice daily 07/24: Remains intubated and minimally sedated but wakes up easily follows commands. On CPAP but slightly tachypneic. Copious amount of ETT secretions. CXR remains unchanged. Urine output 5 L with increased dose of Lasix 07/25: Extubated yesterday, tolerating well. C Diff positive on PO Flagyl. Wheezing improved. Neg balance UO 4.7 L in 24 hours. MSSA sensitive to Levaquin. DC Vanc Azactam and start IV Levaquin Objective Vital Signs Date Time Temp Pulse Resp B/P (MAP) Pulse Ox O2 Delivery O2 Flow Rate FiO2 07/25/17 06:00 78 07/25/17 04:00 98.9 15 111/60 (77) 96 07/24/17 19:03 Nasal Cannula 4.00 07/24/17 10:30 40 Intake and Output 07/25/17 07/25/17 07/26/17 08:00 16:00 00:00 Intake Total 962.5 ml Output Total 1500 ml Balance -537.5 ml Result Diagram: 07/25/17 0338 07/25/17 0338 Other Results Microbiology Date/Time Source Procedure Growth Status 07/22/17 19:00 Sputum Endotracheal Gram Stain - Final Complete 07/22/17 19:00 Sputum Culture - Final Staphylococcus Aureus Complete Laboratory Tests Test 07/24/17 11:10 Blood Gas Puncture Site LT RADIAL Blood Gas Patient Temperature 98.6 Blood Gas HCO3 29 mmol/L (22-26) Blood Gas Base Excess 4.6 mmol/L (-2-2) Blood Gas Oxygen Saturation 92 % (90-100) Arterial Blood pH 7.42 (7.380-7.420) Arterial Blood Partial Pressure CO2 45 mmHg (38-42) Arterial Blood Partial Pressure O2 85 mmHg (61-120) Arterial Blood Oxygen Content 12.6 Vol % (12.0-20.0) Arterial Blood Carboxyhemoglobin 2.7 % (0-4) Arterial Blood Methemoglobin 1.7 % (0-2) Blood Gas Hemoglobin 9.7 G/DL (12.0-16.0) Oxygen Delivery Device VENTILATOR Blood Gas Ventilator Setting CPAP 5 PS5 Blood Gas Inspired Oxygen 40 % Imaging Last Impressions Lung Scan-VQ Nuclear Medicine 07/20/17 0000 Signed Impressions: Service Date/Time: Thursday, July 20, 2017 14:14 - CONCLUSION: Very limited examination secondary to patient's inability to cooperate for the exam. Risk category for pulmonary embolism can therefore not be estimated, however there are no specific findings to specifically elevate likelihood of pulmonary embolism. Moo Rubalcava MD Objective Remarks GENERAL: This is a morbidly obese -[place]ong[place] female lying on bed on CT SKIN: Warm and dry. HEAD: Atraumatic. Normocephalic. EYES: Pupils equal and round. No scleral icterus. No injection or drainage. ENT: Airway widely patent NECK: Trachea midline. Unable to assess JVD secondary to body habitus. CARDIOVASCULAR: Normal rate, regular rhythm. RESPIRATORY: No accessory muscle use. Breath sounds equal bilaterally, with few rhonchi GASTROINTESTINAL: Abdomen soft, obese ,non-tender, nondistended. No guarding. MUSCULOSKELETAL: Bilateral lower extremity edema right calf diameter greater than left. NEUROLOGICAL: Awake alert oriented x2, follows commands. no focal deficits A/P Problem List: (1) Acute respiratory failure ICD Code: J96.00 - Acute respiratory failure, unspecified whether with hypoxia or hypercapnia (2) Symptomatic anemia ICD Code: D64.9 - Anemia, unspecified Status: Chronic (3) CHF (congestive heart failure) ICD Code: I50.9 - Heart failure, unspecified Status: Acute (4) Schizophrenia ICD Code: F20.9 - Schizophrenia, unspecified Status: Chronic (5) Morbid obesity with BMI of 45.0-49.9, adult ICD Code: E66.01 - Morbid (severe) obesity due to excess calories; Z68.42 - Body mass index (BMI) 45.0-49.9, adult Status: Chronic (6) Obstructive sleep apnea hypopnea, severe ICD Code: G47.33 - Obstructive sleep apnea (adult) (pediatric) Status: Chronic (7) Sickle cell anemia ICD Code: D57.1 - Sickle-cell disease without crisis Status: Chronic Assessment and Plan This is a 42-year-old female in respiratory failure secondary to CHF exacerbation, staph aureus pneumonia and underlying obstructive sleep apnea. The patient has multiple comorbidities to include schizophrenia, severe AMBAR. Now stable to improving Plan by systems: Neurologic: Schizophrenia Chronic Pain secondary to sickle cell disease Continue antipsychotic medications, use Haldol PRN for agitation Minimize sedation Respiratory: Acute hypercapnic hypoxemic respiratory failure-resolved Severe AMBAR MSSA pneumonia 07/21 emergently intubated 8.0 ETT 21 cm @ lip. Extubated 07/24, tolerating well ABGs and chest x-rays as clinically indicated Maintain O2 sat greater than 92% Sputum with staph aureus started vancomycin and Azactam 07/23-DC both and start Levaquin IV today BiPAP PRN. EzPAP, Acapella DuoNeb. Consult pulmonology Cardiovascular: Acute diastolic CHF Cardiology following 2/6 Echo-normal systolic function, mild to moderate TR, mild to moderate AR, Small pericardial effusion Currently on Lasix 40 every 12 Renal: Maintain Demarco -- Strict I/Os IV Lasix as above FEN/GI: Morbid obesity Renal insufficiency Dietary consult, diet per rec Heme/ID: Sickle cell anemia Multiple DVTs status post IVC filter placement Iron overload MSSA pneumonia C Diff colitis Hematology following Monitor CBC Continue Xarelto DC Vanc and Azactam, start IV Levaquin 750 q24 PO Flagyl for C Diff Endocrine: Hypokalemia Sliding-scale insulin per ICU protocol Electrolyte replacement per protocol -- SSI Prophylaxis: GI Prophylaxis Famotidine DVT Prophylaxis -- SCDs Patient on Xarelto Lines: Peripheral IVs 2 Dispo: Level 2 Transfer to [facility] with Tele. Hospitalist to assume care in am 07/26/17 Problem Qualifiers (1) CHF (congestive heart failure): Qualified Codes: I50.31 - Acute diastolic (congestive) heart failure (2) Sickle cell anemia: Qualified Codes: D57.00 - Hb-SS disease with crisis, unspecified Reji Cortés MD Jul 25, 2017 08:10
[2017-07-25] MEDS: DEFERASIROX 360 MG PO SCH (09:00)
[2017-07-25] MEDS: LEVOFLOXACIN 750 MG PREMIX INJ 150 ML IV SCH (09:15)
[2017-07-25] MEDS: SODIUM CHLORIDE 0.9% FLUSH 10 ML FLUSH IV FLUSH SCH (09:15)
[2017-07-25] MEDS: FUROSEMIDE 20 MG/2 ML VIAL IV PUSH SCH ×2 (09:16→17:49)
[2017-07-25] MEDS: CITALOPRAM HYDROBROMIDE 20 MG TAB PO SCH (09:16)
[2017-07-25] MEDS: RIVAROXABAN 20 MG TAB PO SCH (09:16)
[2017-07-25] MEDS: POTASSIUM CHLORIDE 25 MEQ EFFERVESCENT TAB PO SCH ×2 (09:16→20:59)
[2017-07-25] MEDS: FOLIC ACID 1 MG TAB PO SCH (09:16)
[2017-07-25] MEDS: BENZTROPINE MESYLATE 1 MG TAB PO SCH ×2 (09:25→20:59)
[2017-07-25] MEDS: PALIPERIDONE ER 3 MG TAB PO SCH (09:26)
[2017-07-25] MEDS: RESP: ALBUTEROL 2.5 MG/IPRATROPIUM 0.5 MG NEB (SCH) NEB ×3 (09:32→21:38)
--- NOTE | 2017-07-25 10:13 | PD.ONC.PN ---
Subjective Subjective Remarks Afebrile Remains extubated, on 3L NC. c/o "all over pain" Objective Data Date Time Temp Pulse Resp B/P (MAP) Pulse Ox O2 Delivery O2 Flow Rate FiO2 07/25/17 08:00 73 07/25/17 07:43 18 07/25/17 06:00 78 07/25/17 04:00 98.9 94 15 111/60 (77) 96 07/25/17 04:00 94 07/25/17 02:00 93 07/25/17 00:00 92 07/25/17 00:00 98.8 93 21 121/70 (87) 95 07/24/17 22:00 96 07/24/17 20:00 99.1 90 12 115/65 (82) 96 07/24/17 20:00 90 07/24/17 19:03 97 Nasal Cannula 4.00 07/24/17 18:00 88 07/24/17 16:00 104 07/24/17 16:00 98.9 104 21 107/68 (81) 97 07/24/17 14:00 104 07/24/17 12:12 94 Nasal Cannula 4 07/24/17 12:12 94 Nasal Cannula 4.00 07/24/17 12:00 101 07/24/17 12:00 98.8 91 20 110/70 (83) 99 07/24/17 10:30 40 07/25/17 07/25/17 07/25/17 07:00 15:00 23:00 Intake Total 962.5 ml Output Total 1500 ml Balance -537.5 ml Result Diagram: 07/25/17 0338 07/25/17 0338 Laboratory Results Laboratory Tests Test 07/24/17 10:30 07/24/17 11:10 07/25/17 03:38 07/25/17 09:36 Stool C. difficile Toxin (PCR) POSITIVE Stl C. difficile Toxin Epiderm 027 PRESUMPTIVE NEGATIVE Blood Gas Puncture Site LT RADIAL RT RADIAL Blood Gas Patient Temperature 98.6 98.6 Blood Gas HCO3 29 mmol/L 28 mmol/L Blood Gas Base Excess 4.6 mmol/L 1.5 mmol/L Blood Gas Oxygen Saturation 92 % 85 % Arterial Blood pH 7.42 7.26 Arterial Blood Partial Pressure CO2 45 mmHg 64 mmHg Arterial Blood Partial Pressure O2 85 mmHg 61 mmHg Arterial Blood Oxygen Content 12.6 Vol % 10.6 Vol % Arterial Blood Carboxyhemoglobin 2.7 % 4.0 % Arterial Blood Methemoglobin 1.7 % 1.7 % Blood Gas Hemoglobin 9.7 G/DL 8.8 G/DL Oxygen Delivery Device VENTILATOR NASAL CANNULA Blood Gas Ventilator Setting CPAP 5 PS5 Blood Gas Inspired Oxygen 40 % White Blood Count 11.0 TH/MM3 Red Blood Count 2.90 MIL/MM3 Hemoglobin 9.2 GM/DL Hematocrit 27.3 % Mean Corpuscular Volume 94.0 FL Mean Corpuscular Hemoglobin 31.9 PG Mean Corpuscular Hemoglobin Concent 33.9 % Red Cell Distribution Width 27.2 % Platelet Count 158 TH/MM3 Mean Platelet Volume 10.6 FL Neutrophils (%) (Auto) 85.6 % Lymphocytes (%) (Auto) 5.1 % Monocytes (%) (Auto) 9.2 % Eosinophils (%) (Auto) 0.0 % Basophils (%) (Auto) 0.1 % Neutrophils # (Auto) 9.4 TH/MM3 Lymphocytes # (Auto) 0.6 TH/MM3 Monocytes # (Auto) 1.0 TH/MM3 Eosinophils # (Auto) 0.0 TH/MM3 Basophils # (Auto) 0.0 TH/MM3 CBC Comment AUTO DIFF Differential Total Cells Counted 100 Neutrophils % (Manual) 86 % Band Neutrophils % 1 % Lymphocytes % 3 % Monocytes % 10 % Neutrophils # (Manual) 9.6 TH/MM3 Nucleated Red Blood Cells 4 /100 WBC Differential Comment FINAL DIFF MANUAL Platelet Estimate LOW Platelet Morphology Comment ENLARGED Target Cells 1+ Baldwin-Moore Bodies PRESENT Acanthocytes OCC Red Cell Morphology Comment Blood Urea Nitrogen 28 MG/DL Creatinine 0.90 MG/DL Random Glucose 157 MG/DL Total Protein 9.1 GM/DL Albumin 3.6 GM/DL Calcium Level 8.1 MG/DL Magnesium Level 1.7 MG/DL Alkaline Phosphatase 97 U/L Aspartate Amino Transf (AST/SGOT) 45 U/L Alanine Aminotransferase (ALT/SGPT) 19 U/L Total Bilirubin 4.5 MG/DL Sodium Level 140 MEQ/L Potassium Level 4.3 MEQ/L Chloride Level 104 MEQ/L Carbon Dioxide Level 29.3 MEQ/L Anion Gap 7 MEQ/L Estimat Glomerular Filtration Rate 83 ML/MIN Blood Gas Liter Flow 3 L/M Culture Results Microbiology Date/Time Source Procedure Growth Status 07/22/17 19:00 Sputum Endotracheal Gram Stain - Final Complete 07/22/17 19:00 Sputum Culture - Final Staphylococcus Aureus Complete Imaging Studies Last 24 hours Impressions Chest X-Ray 07/25/17 0600 Signed Impressions: Service Date/Time: Tuesday, July 25, 2017 03:54 - CONCLUSION: 1. Interval removal of endotracheal tube and nasogastric tube. Global cardiomegaly with stable basilar opacity. Arpan Harman MD Administered Medications Medications (Trade) Dose Ordered Sig/Gini Route PRN Reason Start Time Stop Time Status Last Admin Dose Admin Sodium Chloride (NS Flush) 2 ml BID IV FLUSH 07/18/17 21:00 07/25/17 09:15 Benztropine Mesylate (Cogentin) 1 mg BID PO 07/19/17 09:00 07/25/17 09:25 Citalopram Hydrobromide (CeleXA) 20 mg DAILY PO 07/19/17 09:00 07/25/17 09:16 Folic Acid (Folate) 1 mg DAILY PO 07/19/17 09:00 07/25/17 09:16 Hydroxyurea (Hydrea) 1,000 mg DAILY PO 07/19/17 09:00 07/24/17 08:48 Paliperidone Palmitate (Invega Er) 3 mg DAILY PO 07/19/17 09:00 07/25/17 09:26 Rivaroxaban (Xarelto) 20 mg DAILY PO 07/19/17 09:00 07/25/17 09:16 Patient Own Medication PT OWN MED: Deferasi... DAILY PO 07/19/17 11:00 07/25/17 09:00 Acetaminophen/ Hydrocodone Bitart ([place] 10-325 Mg) 2 tab Q4H PRN PO PAIN 6-10 07/21/17 08:00 07/25/17 06:43 Chlorhexidine Gluconate (Peridex 0.12% Liq) 15 ml BID@08,20 MT 07/21/17 20:00 07/24/17 08:50 Potassium Chloride 100 ml @ 25 mls/hr UNSCH PRN IV ELECTROLYTE REPLACEMENT 07/23/17 11:00 07/24/17 16:00 Furosemide (Lasix Inj) 40 mg BID@,18 IV PUSH 07/23/17 18:00 07/25/17 09:16 Potassium Bicarb/ Potassium Chloride (K-Lyte Cl Eff) 25 meq Q12HR PO 07/23/17 16:00 07/25/17 09:16 Metronidazole (Flagyl) 500 mg Q8HR PO 07/24/17 17:45 07/25/17 06:36 Levofloxacin/ Dextrose 150 ml @ 100 mls/hr Q24H IV 07/25/17 09:00 07/25/17 09:15 Albuterol/ Ipratropium (Duoneb Neb) 1 ampule Q6HR NEB NEB 07/25/17 10:00 07/25/17 09:32 Objective Remarks GENERAL: Obese middle-aged female resting in bed asleep on approach. SKIN: Warm and dry. No oozing from lines HEAD: Normocephalic. EYES: No injection or drainage. NECK: Supple, trachea midline. CARDIOVASCULAR: Regular rate and rhythm RESPIRATORY: Scattered rhonchi anteriorly. On 3 L nasal cannula. GASTROINTESTINAL: Abdomen soft, non-tender, nondistended. EXTREMITIES: No cyanosis. RLE with edema. NEUROLOGICAL: Somewhat lethargic but following all commands. Oriented 3. Assessment/Plan Problem List: (1) Sickle cell anemia ICD Codes: D57.1 - Sickle-cell disease without crisis Status: Chronic Plan: --CXR-->shows enlargement of the cardiac silhouette. follows with a counter former in [place]. (2) CHF (congestive heart failure) ICD Codes: I50.9 - Heart failure, unspecified Status: Acute Plan: --cardiology following (3) Iron overload ICD Codes: E83.19 - Other disorders of iron metabolism Plan: --takes Count Includes [facility] outpatient (4) Right leg DVT ICD Codes: I82.401 - Acute embolism and thrombosis of unspecified deep veins of right lower extremity Plan: --on xarelto. --s/p IVC filter placement. (5) Obstructive sleep apnea hypopnea, severe ICD Codes: G47.33 - Obstructive sleep apnea (adult) (pediatric) Status: Chronic Assessment 42y/o female with sicle cell anemia admitted in vasoocclusive crises. h/o DVT in the right lower extremity-->on Xarelto and had an IVC filter placed. h/o Sickle-cell anemia with multiple painful crises. Sleep apnea. Congestive heart failure. Schizophrenia. Plan 1. No transfusion needed today 2. Monitor CBC 3. Supportive care Attending Statement The exam, history, and the medical decision-making described in the above note were completed with the assistance of the mid-level provider. I reviewed and agree with the findings presented. I attest that I had a [id number] encounter with the patient on the same day, and personally performed and documented my assessment and findings in the medical record. Feeling better. SOB improved. CXR stable. Hgb stable, no significant vaso occlusive crisis. Continue supportive care. Problem Qualifiers (1) Sickle cell anemia: Qualified Codes: D57.00 - Hb-SS disease with crisis, unspecified (2) CHF (congestive heart failure): Qualified Codes: I50.31 - Acute diastolic (congestive) heart failure (3) Right leg DVT: Jessica Malin Jul 25, 2017 10:13 Meir Bronson MD Jul 25, 2017 12:12
--- NOTE | 2017-07-25 13:28 | HHI.PR ---
Subjective Remarks Pt was seen today and is off of the vent. She was sleeping when I arrived and after waking her with some difficulty she immediately asked about pain meds. Objective Vitals Vital Signs Date Time Temp Pulse Resp B/P (MAP) Pulse Ox O2 Delivery O2 Flow Rate FiO2 07/25/17 09:32 96 Nasal Cannula 3.00 07/25/17 08:00 73 07/25/17 07:43 18 07/25/17 06:00 78 07/25/17 04:00 98.9 94 15 111/60 (77) 96 07/25/17 04:00 94 07/25/17 02:00 93 07/25/17 00:00 92 07/25/17 00:00 98.8 93 21 121/70 (87) 95 07/24/17 22:00 96 07/24/17 20:00 99.1 90 12 115/65 (82) 96 07/24/17 20:00 90 07/24/17 19:03 97 Nasal Cannula 4.00 07/24/17 18:00 88 07/24/17 16:00 104 07/24/17 16:00 98.9 104 21 107/68 (81) 97 07/24/17 14:00 104 I/O 07/24/17 07/24/17 07/24/17 07/25/17 07/25/17 07/25/17 07:00 15:00 23:00 07:00 15:00 23:00 Intake Total 807.0 ml 200 ml 1042.5 ml 962.5 ml Output Total 1800 ml 3200 ml 1500 ml Balance -993.0 ml 200 ml -2157.5 ml -537.5 ml Intake Oral 0 ml 480 ml 600 ml IV Total 607.0 ml 200 ml 362.5 ml 362.5 ml Other 200 ml 200 ml Output Urine Total 1800 ml 3200 ml 1500 ml # Bowel Movements 2 1 1 Result Diagram: 07/25/1733707/25/17337 Objective Remarks GENERAL: Overweight, alert, extubated SKIN: Warm and dry. HEAD: Normocephalic. EYES: No scleral icterus. No injection or drainage. NECK: Supple, trachea midline. No JVD or lymphadenopathy. CARDIOVASCULAR: Borderline tachycardia, without murmurs, gallops, or rubs. RESPIRATORY: Less anterior congestive sounds, bases clear GASTROINTESTINAL: Abdomen soft, non-tender, nondistended. EXTREMITIES: No cyanosis, or edema. NEUROLOGICAL: Awake, alert, no focal deficits A/P Problem List: (1) Symptomatic anemia ICD Code: D64.9 - Anemia, unspecified Status: Chronic (2) CHF (congestive heart failure) ICD Code: I50.9 - Heart failure, unspecified Status: Acute (3) Sickle cell anemia ICD Code: D57.1 - Sickle-cell disease without crisis Status: Chronic Assessment and Plan Sickle Cell Crisis with Respiratory Failure Extubated today Appreciate Critical Care accomplishing extubation Hematology following Pneumonia, MSSA Continue Vancomycin and Azactam started 07/23 Consider sickle cell disease Intubated on 07/21 Acute Diastolic CHF Lasix 40 Q12h Appreciate Cardiology following ECHO shows normal EF on 07/20 h/o Schizophrenia Continuing home dose of antipsychotic meds Appears stable today, will continue to monitor psych stability Haldon prn for agitation h/o Sleep Apnea Allegedly she is non-compliant with home use of her BIPAP, which logically is a risk factor with Sickle Cell Crisis occurrences h/o Iron Overload Appreciate Hematology following DVT Prophylaxis h/o DVT Continue Xarelto GI Prophylaxis Continue Famotidine Problem Qualifiers (1) CHF (congestive heart failure): Qualified Codes: I50.31 - Acute diastolic (congestive) heart failure (2) Sickle cell anemia: Qualified Codes: D57.00 - Hb-SS disease with crisis, unspecified Didier Gibbs MD Jul 25, 2017 13:28
[2017-07-25] MEDS: HYDROXYUREA 500 MG CAP PO SCH (14:56)
--- NOTE | 2017-07-25 22:27 | MB ---
cc: SARA BUNDY MD DATE OF CONSULTATION 07/25/2017 REASON FOR CONSULTATION Status post respiratory failure and shortness of breath. HISTORY OF THE PRESENT ILLNESS The patient is a 42-year-old female, -[place], who was noted to have schizophrenia, sickle cell disease, sleep apnea came in to the hospital because of shortness of breath. The patient was found to have significant anemia with a hemoglobin of . She was transferred to the [facility] from [place]. The patient needed to go on mechanical ventilator . The patient did that well and she got extubated yesterday. The patient was status post some stridor. The patient is not giving any good information to me. The patient reported that she had never seen a top stop attacher. She was diagnosed with sleep apnea for which she is on CPAP, however, she has claustrophobia and she cannot really use it well. PAST MEDICAL HISTORY Her past medical history is positive for: 1. Sickle cell disease. 2. Sleep apnea. 3. Congestive heart failure. 4. Schizophrenia. 5. History of deep venous thrombosis. PAST SURGICAL HISTORY Positive for: 1. IVC filter. 2. Port placement. 3. Cholecystectomy. MEDICATIONS Repeated in details. REVIEW OF SYSTEMS Limited. The patient does not give any good information. PHYSICAL EXAMINATION VITAL SIGNS: Temperature 99.2, pulse is 79, respiratory rate 11, blood pressure is 101/62. HEENT: Head is atraumatic, normocephalic. NECK: Trachea is midline. No stridor. LUNGS: Clear to auscultation. HEART: S1-S2. ABDOMEN: Soft. EXTREMITIES: Positive edema. NEUROLOGIC: She did move her extremities. I reviewed her chest x-ray that was done today that did show evidence of cardiomegaly and mild basilar atelectasis. Labs were reviewed. WBC 11, hemoglobin 9.2, platelets 158. Her BUN is 28, creatinine is 0.9. ABGs today showed pH 7.26, PCO2 64, PO2 was 61. This was done this morning. ASSESSMENT AND PLAN 1. Status post ventilator dependent respiratory failure. 2. Congestive heart failure. 3. Sleep apnea. 4. Sickle cell disease. I do believe overall the patient is doing well from a pulmonary perspective. I do not hear any stridor. I did recommend that if someone can bring her own CPAP and her mask from home it would be easier to use than the one we have here in the hospital for her. I would recommend to continue bronchodilators. I am not sure she would be a candidate for maintenance therapy because I do not have any objective evidence of COPD. The patient will definitely need outpatient followup. Thank you for this consultation. MD BARBY Weiss/JULIA /9:32 PM /9:57 PM
[2017-07-26] VITALS (11 sets, daily range): BP systolic 92–109; BP diastolic 52–65; PULSE 82–95; RESP 8–23; TEMP 98.6–99.3; O2SAT 90–97
[2017-07-26] MEDS ORDERED: ACETAMINOPHEN 325 MG TAB PO PRN (02:00)
[2017-07-26] MEDS: SODIUM CHLORIDE 0.9% FLUSH 10 ML FLUSH IV FLUSH SCH ×3 (02:42→21:00)
[2017-07-26] MEDS: RESP: ALBUTEROL 2.5 MG/IPRATROPIUM 0.5 MG NEB (SCH) NEB ×4 (03:36→21:07)
[2017-07-26] MEDS: metroNIDAZOLE 500 MG TAB PO SCH ×3 (05:37→20:58)
[2017-07-26 06:04] LABS: ALBUMIN 3.4 GM/DL (3.4-5.0); AST (GOT) 38 U/L (15-37); BICARBONATE 29.5 MEQ/L (21.0-32.0); BLOOD UREA NITROGEN 36 MG/DL (7-18); CHLORIDE 100 MEQ/L (98-107); CREATININE 1.08 MG/DL (0.50-1.00); GLOMERULAR FILTRATION RATE 67 ML/MIN (>89); GLUCOSE,RANDOM 94 MG/DL (74-106); SODIUM (NA) 137 MEQ/L (136-145)
[2017-07-26 06:07] LABS: ALKALINE PHOSPHATASE 82 U/L (45-117); ALT (GPT) 17 U/L (10-53); TOTAL BILIRUBIN ADULT 4.1 MG/DL (0.2-1.0); TOTAL PROTEIN 8.5 GM/DL (6.4-8.2)
[2017-07-26] MEDS: CHLORHEXIDINE 0.12% (ORAL KIT) 15 ML CUP MT SCH ×2 (08:00→19:30)
[2017-07-26] MEDS: POTASSIUM CHLORIDE 25 MEQ EFFERVESCENT TAB PO SCH ×2 (09:17→20:58)
[2017-07-26] MEDS: HYDROXYUREA 500 MG CAP PO SCH (09:24)
[2017-07-26] MEDS: CITALOPRAM HYDROBROMIDE 20 MG TAB PO SCH (09:24)
[2017-07-26] MEDS: BENZTROPINE MESYLATE 1 MG TAB PO SCH ×2 (09:24→20:59)
[2017-07-26] MEDS: RIVAROXABAN 20 MG TAB PO SCH (09:25)
[2017-07-26] MEDS: PALIPERIDONE ER 3 MG TAB PO SCH (09:25)
[2017-07-26] MEDS: FOLIC ACID 1 MG TAB PO SCH (09:25)
[2017-07-26] MEDS: FUROSEMIDE 20 MG/2 ML VIAL IV PUSH SCH ×2 (09:26→17:03)
[2017-07-26] MEDS: LEVOFLOXACIN 750 MG PREMIX INJ 150 ML IV SCH (09:26)
--- NOTE | 2017-07-26 13:33 | HHI.PR ---
Subjective Remarks 42F who is recovering well from sickle cell crisis. She is more alert and interactive today. Still complains of pain. Asking for food, she is very hungry. Objective Vitals Vital Signs Date Time Temp Pulse Resp B/P (MAP) Pulse Ox O2 Delivery O2 Flow Rate FiO2 07/26/17 12:00 99.3 94 9 101/65 (77) 96 07/26/17 12:00 94 07/26/17 10:18 97 Nasal Cannula 2.00 07/26/17 08:00 82 07/26/17 08:00 98.7 82 8 109/59 (76) 94 07/26/17 06:00 95 07/26/17 04:00 99.1 89 21 100/53 (69) 90 07/26/17 04:00 89 07/26/17 02:00 84 07/26/17 00:00 99.0 92 23 93/60 (71) 93 07/26/17 00:00 92 07/25/17 22:00 83 07/25/17 21:39 98 Nasal Cannula 1.00 07/25/17 20:00 98.6 88 12 96/62 (73) 89 07/25/17 20:00 88 07/25/17 18:00 79 07/25/17 16:00 99.2 84 11 101/62 (75) 90 07/25/17 16:00 84 07/25/17 14:00 74 I/O 07/25/17 07/25/17 07/25/17 07/26/17 07/26/17 07/26/17 07:00 15:00 23:00 07:00 15:00 23:00 Intake Total 962.5 ml 150 ml 720 ml Output Total 1500 ml 450 ml 525 ml Balance -537.5 ml -300 ml 195 ml Intake Oral 600 ml 720 ml IV Total 362.5 ml 150 ml Output Urine Total 1500 ml 450 ml 525 ml # Bowel Movements 1 0 0 Result Diagram: 07/25/17 0338 07/26/17 0520 Objective Remarks GENERAL: Overweight, alert, interactive SKIN: Warm and dry. HEAD: Normocephalic. EYES: No scleral icterus. No injection or drainage. NECK: Supple, trachea midline. No JVD or lymphadenopathy. CARDIOVASCULAR: Regular rate and rhythm, without murmurs, gallops, or rubs. RESPIRATORY: Mild congestive sounds, bases clear GASTROINTESTINAL: Abdomen soft, non-tender, nondistended. EXTREMITIES: No cyanosis, or edema. NEUROLOGICAL: Awake, alert, no focal deficits A/P Problem List: (1) Symptomatic anemia ICD Code: D64.9 - Anemia, unspecified Status: Chronic (2) CHF (congestive heart failure) ICD Code: I50.9 - Heart failure, unspecified Status: Acute (3) Sickle cell anemia ICD Code: D57.1 - Sickle-cell disease without crisis Status: Chronic Assessment and Plan Sickle Cell Crisis with Respiratory Failure Appreciate Critical Care accomplishing extubation ABG shows expected improvements Doing well on room air Will start back on food today, transfer to telemetry floor Hematology following Pneumonia, MSSA Continue Vancomycin and Azactam started 07/23 Consider sickle cell disease Intubated on 07/21 Acute Diastolic CHF Lasix 40 Q12h Appreciate Cardiology following ECHO shows normal EF on 07/20 h/o Schizophrenia Continuing home dose of antipsychotic meds Appears stable today, will continue to monitor psych stability Haldon prn for agitation h/o Sleep Apnea Allegedly she is non-compliant with home use of her BIPAP, which logically is a risk factor with Sickle Cell Crisis occurrences h/o Iron Overload Appreciate Hematology following DVT Prophylaxis h/o DVT Continue Xarelto GI Prophylaxis Continue Famotidine Problem Qualifiers (1) CHF (congestive heart failure): Qualified Codes: I50.31 - Acute diastolic (congestive) heart failure (2) Sickle cell anemia: Qualified Codes: D57.00 - Hb-SS disease with crisis, unspecified Didier Gibbs MD Jul 26, 2017 1:33 pm
--- NOTE | 2017-07-26 13:48 | PD.ONC.PN ---
Subjective Subjective Remarks Afebrile overnight. When I ask patient is she has pain she states, "all over." She denies pain in one specific area. has been extubated and seems to be comfortable on nasal cannula. Objective Data Date Time Temp Pulse Resp B/P (MAP) Pulse Ox O2 Delivery O2 Flow Rate FiO2 07/26/17 12:00 99.3 94 9 101/65 (77) 96 07/26/17 12:00 94 07/26/17 10:18 97 Nasal Cannula 2.00 07/26/17 08:00 82 07/26/17 08:00 98.7 82 8 109/59 (76) 94 07/26/17 06:00 95 07/26/17 04:00 99.1 89 21 100/53 (69) 90 07/26/17 04:00 89 07/26/17 02:00 84 07/26/17 00:00 99.0 92 23 93/60 (71) 93 07/26/17 00:00 92 07/25/17 22:00 83 07/25/17 21:39 98 Nasal Cannula 1.00 07/25/17 20:00 98.6 88 12 96/62 (73) 89 07/25/17 20:00 88 07/25/17 18:00 79 07/25/17 16:00 99.2 84 11 101/62 (75) 90 07/25/17 16:00 84 07/25/17 14:00 74 07/26/17 07/26/17 07/26/17 07:00 15:00 23:00 Intake Total 720 ml Output Total 525 ml Balance 195 ml Result Diagram: 07/25/17 0338 07/26/17 0520 Laboratory Results Laboratory Tests Test 07/26/17 05:20 07/26/17 06:09 Blood Urea Nitrogen 36 MG/DL Creatinine 1.08 MG/DL Random Glucose 94 MG/DL Total Protein 8.5 GM/DL Albumin 3.4 GM/DL Calcium Level 8.0 MG/DL Alkaline Phosphatase 82 U/L Aspartate Amino Transf (AST/SGOT) 38 U/L Alanine Aminotransferase (ALT/SGPT) 17 U/L Total Bilirubin 4.1 MG/DL Sodium Level 137 MEQ/L Potassium Level 3.8 MEQ/L Chloride Level 100 MEQ/L Carbon Dioxide Level 29.5 MEQ/L Anion Gap 8 MEQ/L Estimat Glomerular Filtration Rate 67 ML/MIN Blood Gas Puncture Site L Blood Gas Patient Temperature 98.6 Blood Gas HCO3 27 mmol/L Blood Gas Base Excess 1.8 mmol/L Blood Gas Oxygen Saturation 88 % Arterial Blood pH 7.35 Arterial Blood Partial Pressure CO2 50 mmHg Arterial Blood Partial Pressure O2 70 mmHg Arterial Blood Oxygen Content 10.2 Vol % Arterial Blood Carboxyhemoglobin 5.2 % Arterial Blood Methemoglobin 1.6 % Blood Gas Hemoglobin 8.2 G/DL Oxygen Delivery Device NASAL CANNULA Blood Gas Liter Flow 1 L/M Administered Medications Medications (Trade) Dose Ordered Sig/Gini Route PRN Reason Start Time Stop Time Status Last Admin Dose Admin Sodium Chloride (NS Flush) 2 ml BID IV FLUSH 07/18/17 21:00 07/26/17 09:26 Benztropine Mesylate (Cogentin) 1 mg BID PO 07/19/17 09:00 07/26/17 09:24 Citalopram Hydrobromide (CeleXA) 20 mg DAILY PO 07/19/17 09:00 07/26/17 09:24 Folic Acid (Folate) 1 mg DAILY PO 07/19/17 09:00 07/26/17 09:25 Hydroxyurea (Hydrea) 1,000 mg DAILY PO 07/19/17 09:00 07/26/17 09:24 Paliperidone Palmitate (Invega Er) 3 mg DAILY PO 07/19/17 09:00 07/26/17 09:25 Rivaroxaban (Xarelto) 20 mg DAILY PO 07/19/17 09:00 07/26/17 09:25 Patient Own Medication PT OWN MED: Deferasi... DAILY PO 07/19/17 11:00 07/25/17 09:00 Chlorhexidine Gluconate (Peridex 0.12% Liq) 15 ml BID@08,20 MT 07/21/17 20:00 07/26/17 08:00 Potassium Chloride 100 ml @ 25 mls/hr UNSCH PRN IV ELECTROLYTE REPLACEMENT 07/23/17 11:00 07/24/17 16:00 Furosemide (Lasix Inj) 40 mg BID@,18 IV PUSH 07/23/17 18:00 07/26/17 09:26 Potassium Bicarb/ Potassium Chloride (K-Lyte Cl Eff) 25 meq Q12HR PO 07/23/17 16:00 07/26/17 09:17 Metronidazole (Flagyl) 500 mg Q8HR PO 07/24/17 17:45 07/26/17 12:36 Levofloxacin/ Dextrose 150 ml @ 100 mls/hr Q24H IV 07/25/17 09:00 07/26/17 09:26 Albuterol/ Ipratropium (Duoneb Neb) 1 ampule Q6HR NEB NEB 07/25/17 10:00 07/26/17 10:18 Acetaminophen (Tylenol) 650 mg Q6H PRN PO PAIN 07/26/17 02:00 07/26/17 02:42 Objective Remarks GENERAL: Pleasant middle aged female, sitting up in chair next to bed. she appears comfortable and in nad. she is watching TV SKIN: Warm and dry. HEAD: Normocephalic. EYES: No injection or drainage. NECK: Supple, trachea midline. CARDIOVASCULAR: Regular rate and rhythm RESPIRATORY: Breath sounds equal bilaterally. No accessory muscle use. GASTROINTESTINAL: Abdomen soft, non-tender, nondistended. EXTREMITIES: No cyanosis NEUROLOGICAL: awake and alert, normal speech. Assessment/Plan Problem List: (1) Sickle cell anemia ICD Codes: D57.1 - Sickle-cell disease without crisis Status: Chronic Plan: 07/26: monitor CBC. continue pain management as needed. --CXR-->shows enlargement of the cardiac silhouette. follows with a archival studies professor in [place]. (2) CHF (congestive heart failure) ICD Codes: I50.9 - Heart failure, unspecified Status: Acute Plan: --cardiology following (3) Iron overload ICD Codes: E83.19 - Other disorders of iron metabolism Plan: --takes [facility] outpatient (4) Right leg DVT ICD Codes: I82.401 - Acute embolism and thrombosis of unspecified deep veins of right lower extremity Plan: --on xarelto. --s/p IVC filter placement. (5) Obstructive sleep apnea hypopnea, severe ICD Codes: G47.33 - Obstructive sleep apnea (adult) (pediatric) Status: Chronic Assessment 42y/o female with sicle cell anemia admitted in vasoocclusive crises. h/o DVT in the right lower extremity-->on Xarelto and had an IVC filter placed. h/o Sickle-cell anemia with multiple painful crises. Sleep apnea. Congestive heart failure. Schizophrenia. Attending Statement The exam, history, and the medical decision-making described in the above note were completed with the assistance of the mid-level provider. I reviewed and agree with the findings presented. I attest that I had a [id number] encounter with the patient on the same day, and personally performed and documented my assessment and findings in the medical record. OOB to chair. Breathing is better. Denies any c/o. H/H stable. No TX Pain is under control. continue to monitor closely. Problem Qualifiers (1) Sickle cell anemia: Qualified Codes: D57.00 - Hb-SS disease with crisis, unspecified (2) CHF (congestive heart failure): Qualified Codes: I50.31 - Acute diastolic (congestive) heart failure (3) Right leg DVT: Elsy Pedraza Jul 26, 2017 13:48 Nina Villa MD Jul 26, 2017 16:30
[2017-07-26 14:05] LABS: AUTOMATED NEUTROPHIL # 6.6 TH/MM3 (1.8-7.7); BASOPHIL # 0.1 TH/MM3 (0-0.2); BASOPHIL % 0.7 % (0.0-2.0); EOSINOPHIL # 0.1 TH/MM3 (0-0.4); EOSINOPHIL % 0.8 % (0.0-4.0); HEMATOCRIT 23.6 % (35.0-46.0); HEMOGLOBIN 8.3 GM/DL (11.6-15.3); LYMPH % 16.1 % (9.0-44.0); LYMPHOCYTE # 1.5 TH/MM3 (1.0-4.8); MEAN CELL VOLUME 91.8 FL (80.0-100.0); MEAN CORPUSCULAR HEMOGLOBIN 32.2 PG (27.0-34.0); MEAN CORPUSCULAR HGB CONC 35.1 % (32.0-36.0); MEAN PLATELET VOLUME 10.1 FL (7.0-11.0); MONO % 12.4 % (0.0-8.0); MONOCYTE # 1.2 TH/MM3 (0-0.9); PLATELET COUNT 148 TH/MM3 (150-450); RED BLOOD COUNT 2.58 MIL/MM3 (4.00-5.30); RED CELL DISTRIBUTION WIDTH 25.6 % (11.6-17.2); WHITE BLOOD COUNT 9.4 TH/MM3 (4.0-11.0)
--- NOTE | 2017-07-26 14:36 | HHI.PR ---
Subjective Remarks alert extubated over weekend no sob in good spirits today Objective GENERAL: SKIN: Warm and dry. HEAD: Atraumatic. Normocephalic. EYES: Pupils equal and round. No scleral icterus. No injection or drainage. ENT: No nasal bleeding or discharge. Mucous membranes pink and moist. NECK: Trachea midline. No JVD. CARDIOVASCULAR: Regular rate and rhythm. RESPIRATORY: No accessory muscle use. Clear to auscultation. Breath sounds equal bilaterally. GASTROINTESTINAL: Abdomen soft, non-tender, nondistended. Hepatic and splenic margins not palpable. MUSCULOSKELETAL: Extremities without clubbing, cyanosis, or edema. No obvious deformities. NEUROLOGICAL: Awake and alert. No obvious cranial nerve deficits. Motor grossly within normal limits. Five out of 5 muscle strength in the arms and legs. Normal speech. PSYCHIATRIC: Appropriate mood and affect; insight and judgment normal. Vital Signs Date Time Temp Pulse Resp B/P (MAP) Pulse Ox O2 Delivery O2 Flow Rate FiO2 07/26/17 12:00 99.3 94 9 101/65 (77) 96 07/26/17 12:00 94 07/26/17 10:18 97 Nasal Cannula 2.00 07/26/17 08:00 82 07/26/17 08:00 98.7 82 8 109/59 (76) 94 07/26/17 06:00 95 07/26/17 04:00 99.1 89 21 100/53 (69) 90 07/26/17 04:00 89 07/26/17 02:00 84 07/26/17 00:00 99.0 92 23 93/60 (71) 93 07/26/17 00:00 92 07/25/17 22:00 83 07/25/17 21:39 98 Nasal Cannula 1.00 07/25/17 20:00 98.6 88 12 96/62 (73) 89 07/25/17 20:00 88 07/25/17 18:00 79 07/25/17 16:00 99.2 84 11 101/62 (75) 90 07/25/17 16:00 84 I/O 07/25/17 07/25/17 07/25/17 07/26/17 07/26/17 07/26/17 07:00 15:00 23:00 07:00 15:00 23:00 Intake Total 962.5 ml 150 ml 720 ml Output Total 1500 ml 450 ml 525 ml Balance -537.5 ml -300 ml 195 ml Intake Oral 600 ml 720 ml IV Total 362.5 ml 150 ml Output Urine Total 1500 ml 450 ml 525 ml # Bowel Movements 1 0 0 Result Diagram: 07/26/17 1335 07/26/17 0520 Objective Remarks GENERAL: SKIN: Warm and dry. HEAD: Atraumatic. Normocephalic. EYES: Pupils equal and round. No scleral icterus. No injection or drainage. ENT: No nasal bleeding or discharge. Mucous membranes pink and moist. NECK: Trachea midline. No JVD. CARDIOVASCULAR: Regular rate and rhythm. RESPIRATORY: No accessory muscle use. Clear to auscultation. Breath sounds equal bilaterally. GASTROINTESTINAL: Abdomen soft, non-tender, nondistended. Hepatic and splenic margins not palpable. MUSCULOSKELETAL: Extremities without clubbing, cyanosis, or edema. No obvious deformities. NEUROLOGICAL: Awake and alert. No obvious cranial nerve deficits. Motor grossly within normal limits. Five out of 5 muscle strength in the arms and legs. Normal speech. PSYCHIATRIC: Appropriate mood and affect; insight and judgment normal. Assessment and Plan Assessment and Plan RESPIRATORY FAILURE COPD AMBAR DVT SS ANEMIA MORBID OBESITY ON XARELTO PLAN O2 NEEDED BIPAP IF POSSILBLE , has PAP at home , non compliant BRONCHODILATORS increase activity Regan Spears MD Jul 26, 2017 14:36
[2017-07-26 14:46] LABS: TARGET CELLS 1+ (NORMAL)
[2017-07-26 14:47] LABS: ACANTHOCYTES OCC (NORMAL); SICKLE CELLS 1+ (NORMAL)
[2017-07-26] MEDS: ACETAMINOPHEN/HYDROcodone 325 MG/10 MG TAB PO PRN ×2 (17:04→21:09)
--- NOTE | 2017-07-26 19:02 | HHI.PR ---
Subjective Remarks The patient is a patient of Dr. Hennessy He is following. I will sign off. Objective Vital Signs Date Time Temp Pulse Resp B/P (MAP) Pulse Ox O2 Delivery O2 Flow Rate FiO2 07/26/17 16:00 98.6 91 20 92/52 (65) 91 07/26/17 12:00 99.3 94 9 101/65 (77) 96 07/26/17 12:00 94 07/26/17 10:18 97 Nasal Cannula 2.00 07/26/17 08:00 82 07/26/17 08:00 98.7 82 8 109/59 (76) 94 07/26/17 06:00 95 07/26/17 04:00 99.1 89 21 100/53 (69) 90 07/26/17 04:00 89 07/26/17 02:00 84 07/26/17 00:00 99.0 92 23 93/60 (71) 93 07/26/17 00:00 92 07/25/17 22:00 83 07/25/17 21:39 98 Nasal Cannula 1.00 07/25/17 20:00 98.6 88 12 96/62 (73) 89 07/25/17 20:00 88 I/O 07/25/17 07/25/17 07/25/17 07/26/17 07/26/17 07/26/17 07:00 15:00 23:00 07:00 15:00 23:00 Intake Total 962.5 ml 150 ml 720 ml 240 ml Output Total 1500 ml 450 ml 525 ml Balance -537.5 ml -300 ml 195 ml 240 ml Intake Oral 600 ml 720 ml 240 ml IV Total 362.5 ml 150 ml Output Urine Total 1500 ml 450 ml 525 ml # Bowel Movements 1 0 0 Result Diagram: 07/26/17 1335 07/26/17 0520 Umesh Colbert MD Jul 26, 2017 19:02
[2017-07-27] VITALS (8 sets, daily range): BP systolic 100–145; BP diastolic 59–83; PULSE 82–106; RESP 18–19; TEMP 97–99.6; O2SAT 92–99
[2017-07-27] MEDS: ACETAMINOPHEN/HYDROcodone 325 MG/10 MG TAB PO PRN ×4 (02:21→21:01)
[2017-07-27] MEDS: RESP: ALBUTEROL 2.5 MG/IPRATROPIUM 0.5 MG NEB (SCH) NEB ×4 (03:39→21:07)
[2017-07-27] MEDS: metroNIDAZOLE 500 MG TAB PO SCH ×3 (05:25→21:00)
[2017-07-27] MEDS: CHLORHEXIDINE 0.12% (ORAL KIT) 15 ML CUP MT SCH ×2 (08:00→20:00)
[2017-07-27] MEDS: DEFERASIROX 360 MG PO SCH (09:00)
[2017-07-27] MEDS: SODIUM CHLORIDE 0.9% FLUSH 10 ML FLUSH IV FLUSH SCH ×2 (09:00→21:05)
[2017-07-27] MEDS: LEVOFLOXACIN 750 MG PREMIX INJ 150 ML IV SCH (09:06)
[2017-07-27] MEDS: BENZTROPINE MESYLATE 1 MG TAB PO SCH ×2 (09:07→21:01)
[2017-07-27] MEDS: POTASSIUM CHLORIDE 25 MEQ EFFERVESCENT TAB PO SCH ×2 (09:08→21:02)
[2017-07-27] MEDS: PALIPERIDONE ER 3 MG TAB PO SCH (09:08)
[2017-07-27] MEDS: FOLIC ACID 1 MG TAB PO SCH (09:09)
[2017-07-27] MEDS: RIVAROXABAN 20 MG TAB PO SCH (09:09)
[2017-07-27] MEDS: FUROSEMIDE 20 MG/2 ML VIAL IV PUSH SCH ×2 (09:09→16:38)
[2017-07-27] MEDS: CITALOPRAM HYDROBROMIDE 20 MG TAB PO SCH (09:09)
[2017-07-27] MEDS: HYDROXYUREA 500 MG CAP PO SCH (09:21)
--- NOTE | 2017-07-27 12:15 | HHI.PR ---
Subjective Remarks Pt says her pain is under better control today. She is still coughing, productive, still short of breath with exertion. Tolerating food well, had a bowel movement. Objective Vitals Vital Signs Date Time Temp Pulse Resp B/P (MAP) Pulse Ox O2 Delivery O2 Flow Rate FiO2 07/27/17 08:58 92 Nasal Cannula 2.00 07/27/17 08:00 97.1 106 18 104/59 (74) 95 07/27/17 04:00 97.8 86 18 100/60 (73) 94 07/27/17 00:00 98.4 92 18 108/69 (82) 93 07/26/17 23:59 92 07/26/17 22:46 88 07/26/17 21:10 Nasal Cannula 2.00 07/26/17 20:00 99.0 94 18 105/64 (78) 93 07/26/17 16:00 98.6 91 20 92/52 (65) 91 I/O 07/26/17 07/26/17 07/26/17 07/27/17 07/27/17 07/27/17 07:00 15:00 23:00 07:00 15:00 23:00 Intake Total 720 ml 240 ml 360 ml Output Total 525 ml 800 ml Balance 195 ml 240 ml -440 ml Intake Oral 720 ml 240 ml 360 ml Output Urine Total 525 ml 800 ml # Bowel Movements 0 0 Result Diagram: 07/26/17 1335 07/26/17 0520 Objective Remarks GENERAL: Overweight, alert, interactive SKIN: Warm and dry. HEAD: Normocephalic. EYES: No scleral icterus. No injection or drainage. NECK: Supple, trachea midline. No JVD or lymphadenopathy. CARDIOVASCULAR: Regular rate and rhythm, without murmurs, gallops, or rubs. RESPIRATORY: Mild congestive sounds, bases clear GASTROINTESTINAL: Abdomen soft, non-tender, nondistended. EXTREMITIES: No cyanosis, or edema. NEUROLOGICAL: Awake, alert, no focal deficits A/P Problem List: (1) Symptomatic anemia ICD Code: D64.9 - Anemia, unspecified Status: Chronic (2) CHF (congestive heart failure) ICD Code: I50.9 - Heart failure, unspecified Status: Acute (3) Sickle cell anemia ICD Code: D57.1 - Sickle-cell disease without crisis Status: Chronic Assessment and Plan Sickle Cell Crisis with Respiratory Failure On oxygen today, will test oxygen walk test in the morning Desaturation to 89% today on room air Tolerating food well Hematology following Pneumonia, MSSA Continue Vancomycin and Azactam started 07/23 Consider sickle cell disease Acute Diastolic CHF Lasix 40 Q12h Appreciate Cardiology following ECHO shows normal EF on 07/20 h/o Schizophrenia Continuing home dose of antipsychotic meds Appears stable, no disorganized thinking Haldon prn for agitation h/o Sleep Apnea Allegedly she is non-compliant with home use of her BIPAP h/o Iron Overload Appreciate Hematology following DVT Prophylaxis h/o DVT Continue Xarelto Discharge Planning Lives at home with a fiance Problem Qualifiers (1) CHF (congestive heart failure): Qualified Codes: I50.31 - Acute diastolic (congestive) heart failure (2) Sickle cell anemia: Qualified Codes: D57.00 - Hb-SS disease with crisis, unspecified Didier Gibbs MD Jul 27, 2017 12:15
--- NOTE | 2017-07-27 13:24 | PD.ONC.PN ---
Subjective Subjective Remarks Afebrile overnight. Patient resting in bed in nad. No complaints. States pain is gone. States she is breathing better. Objective Data Date Time Temp Pulse Resp B/P (MAP) Pulse Ox O2 Delivery O2 Flow Rate FiO2 07/27/17 12:00 97.0 91 18 105/68 (80) 95 07/27/17 08:58 92 Nasal Cannula 2.00 07/27/17 08:00 97.1 106 18 104/59 (74) 95 07/27/17 04:00 97.8 86 18 100/60 (73) 94 07/27/17 00:00 98.4 92 18 108/69 (82) 93 07/26/17 23:59 92 07/26/17 22:46 88 07/26/17 21:10 Nasal Cannula 2.00 07/26/17 20:00 99.0 94 18 105/64 (78) 93 07/26/17 16:00 98.6 91 20 92/52 (65) 91 07/27/17 07/27/17 07/27/17 07:00 15:00 23:00 Intake Total 360 ml Output Total 800 ml Balance -440 ml Result Diagram: 07/26/17 1335 07/26/17 0520 Laboratory Results Laboratory Tests Test 07/26/17 13:35 White Blood Count 9.4 TH/MM3 Red Blood Count 2.58 MIL/MM3 Hemoglobin 8.3 GM/DL Hematocrit 23.6 % Mean Corpuscular Volume 91.8 FL Mean Corpuscular Hemoglobin 32.2 PG Mean Corpuscular Hemoglobin Concent 35.1 % Red Cell Distribution Width 25.6 % Platelet Count 148 TH/MM3 Mean Platelet Volume 10.1 FL Neutrophils (%) (Auto) 70.0 % Lymphocytes (%) (Auto) 16.1 % Monocytes (%) (Auto) 12.4 % Eosinophils (%) (Auto) 0.8 % Basophils (%) (Auto) 0.7 % Neutrophils # (Auto) 6.6 TH/MM3 Lymphocytes # (Auto) 1.5 TH/MM3 Monocytes # (Auto) 1.2 TH/MM3 Eosinophils # (Auto) 0.1 TH/MM3 Basophils # (Auto) 0.1 TH/MM3 CBC Comment AUTO DIFF Differential Comment AUTO DIFF CONFIRMED Platelet Estimate LOW Platelet Morphology Comment ENLARGED Sickle Cells 1+ Target Cells 1+ Acanthocytes OCC Red Cell Morphology Comment Administered Medications Medications (Trade) Dose Ordered Sig/Gini Route PRN Reason Start Time Stop Time Status Last Admin Dose Admin Sodium Chloride (NS Flush) 2 ml BID IV FLUSH 07/18/17 21:00 07/27/17 09:00 Benztropine Mesylate (Cogentin) 1 mg BID PO 07/19/17 09:00 07/27/17 09:07 Citalopram Hydrobromide (CeleXA) 20 mg DAILY PO 07/19/17 09:00 07/27/17 09:09 Folic Acid (Folate) 1 mg DAILY PO 07/19/17 09:00 07/27/17 09:09 Hydroxyurea (Hydrea) 1,000 mg DAILY PO 07/19/17 09:00 07/27/17 09:21 Paliperidone Palmitate (Invega Er) 3 mg DAILY PO 07/19/17 09:00 07/27/17 09:08 Rivaroxaban (Xarelto) 20 mg DAILY PO 07/19/17 09:00 07/27/17 09:09 Patient Own Medication PT OWN MED: Deferasi... DAILY PO 07/19/17 11:00 07/25/17 09:00 Chlorhexidine Gluconate (Peridex 0.12% Liq) 15 ml BID@08,20 MT 07/21/17 20:00 07/26/17 08:00 Potassium Chloride 100 ml @ 25 mls/hr UNSCH PRN IV ELECTROLYTE REPLACEMENT 07/23/17 11:00 07/24/17 16:00 Furosemide (Lasix Inj) 40 mg BID@ IV PUSH 07/23/17 18:00 07/27/17 09:09 Potassium Bicarb/ Potassium Chloride (K-Lyte Cl Eff) 25 meq Q12HR PO 07/23/17 16:00 07/27/17 09:08 Metronidazole (Flagyl) 500 mg Q8HR PO 07/24/17 17:45 07/27/17 05:25 Levofloxacin/ Dextrose 150 ml @ 100 mls/hr Q24H IV 07/25/17 09:00 07/27/17 09:06 Albuterol/ Ipratropium (Duoneb Neb) 1 ampule Q6HR NEB NEB 07/25/17 10:00 07/27/17 08:55 Acetaminophen (Tylenol) 650 mg Q6H PRN PO PAIN 07/26/17 02:00 07/26/17 02:42 Acetaminophen/ Hydrocodone Bitart ([place] 10-325 Mg) 1 tab Q4H PRN PO pain 1-10 07/26/17 13:45 07/27/17 09:10 Objective Remarks GENERAL: Middle aged female, lying in bed watching TV in [facility]. SKIN: Warm and dry. HEAD: Normocephalic. EYES: No injection or drainage. NECK: Supple, trachea midline. CARDIOVASCULAR: Regular rate and rhythm RESPIRATORY: Breath sounds equal bilaterally. No accessory muscle use. GASTROINTESTINAL: Abdomen soft, non-tender, nondistended. EXTREMITIES: No cyanosis NEUROLOGICAL: awake and alert, normal speech. moving extremities. Assessment/Plan Problem List: (1) Sickle cell anemia ICD Codes: D57.1 - Sickle-cell disease without crisis Status: Chronic Plan: 07/27: check CBC, CMP today. continue supportive care --CXR-->shows enlargement of the cardiac silhouette. follows with a pulmonary function technician in [place]. (2) CHF (congestive heart failure) ICD Codes: I50.9 - Heart failure, unspecified Status: Acute Plan: --cardiology following (3) Iron overload ICD Codes: E83.19 - Other disorders of iron metabolism Plan: --takes [facility] outpatient (4) Right leg DVT ICD Codes: I82.401 - Acute embolism and thrombosis of unspecified deep veins of right lower extremity Plan: --on xarelto. --s/p IVC filter placement. (5) Obstructive sleep apnea hypopnea, severe ICD Codes: G47.33 - Obstructive sleep apnea (adult) (pediatric) Status: Chronic Assessment 42y/o female with sicle cell anemia admitted in vasoocclusive crises. h/o DVT in the right lower extremity-->on Xarelto and had an IVC filter placed. h/o Sickle-cell anemia with multiple painful crises. Sleep apnea. Congestive heart failure. Schizophrenia. Problem Qualifiers (1) Sickle cell anemia: Qualified Codes: D57.00 - Hb-SS disease with crisis, unspecified (2) CHF (congestive heart failure): Qualified Codes: I50.31 - Acute diastolic (congestive) heart failure (3) Right leg DVT: Elsy Pedraza Jul 27, 2017 13:24 Nina Villa MD Jul 28, 2017 17:13
[2017-07-27 15:00] LABS: AUTOMATED NEUTROPHIL # 5.8 TH/MM3 (1.8-7.7); BASOPHIL # 0.1 TH/MM3 (0-0.2); BASOPHIL % 0.8 % (0.0-2.0); EOSINOPHIL # 0.1 TH/MM3 (0-0.4); EOSINOPHIL % 1.3 % (0.0-4.0); HEMATOCRIT 24.4 % (35.0-46.0); HEMOGLOBIN 8.3 GM/DL (11.6-15.3); LYMPH % 13.3 % (9.0-44.0); LYMPHOCYTE # 1.1 TH/MM3 (1.0-4.8); MEAN CELL VOLUME 92.1 FL (80.0-100.0); MEAN CORPUSCULAR HEMOGLOBIN 31.3 PG (27.0-34.0); MEAN PLATELET VOLUME 10.1 FL (7.0-11.0); MONO % 12.4 % (0.0-8.0); NEUT % 72.2 % (16.0-70.0); PLATELET COUNT 163 TH/MM3 (150-450); RED BLOOD COUNT 2.65 MIL/MM3 (4.00-5.30); RED CELL DISTRIBUTION WIDTH 25.4 % (11.6-17.2); WHITE BLOOD COUNT 8.1 TH/MM3 (4.0-11.0)
[2017-07-27 15:31] LABS: CALCIUM 8.4 MG/DL (8.5-10.1); CREATININE 0.74 MG/DL (0.50-1.00)
[2017-07-27 15:36] LABS: SICKLE CELLS 1+ (NORMAL); TARGET CELLS 1+ (NORMAL)
[2017-07-27 15:37] LABS: ACANTHOCYTES OCC (NORMAL); HOWELL-JOLLY BODIES PRESENT (NONE SEEN)
--- NOTE | 2017-07-27 19:00 | HHI.PR ---
Subjective Remarks alert no sob in good spirits today Objective Vital Signs Date Time Temp Pulse Resp B/P (MAP) Pulse Ox O2 Delivery O2 Flow Rate FiO2 07/27/17 16:00 97.6 82 18 118/83 (95) 99 07/27/17 12:00 97.0 91 18 105/68 (80) 95 07/27/17 08:58 92 Nasal Cannula 2.00 07/27/17 08:00 97.1 106 18 104/59 (74) 95 07/27/17 04:00 97.8 86 18 100/60 (73) 94 07/27/17 00:00 98.4 92 18 108/69 (82) 93 07/26/17 23:59 92 07/26/17 22:46 88 07/26/17 21:10 Nasal Cannula 2.00 07/26/17 20:00 99.0 94 18 105/64 (78) 93 I/O 07/26/17 07/26/17 07/26/17 07/27/17 07/27/17 07/27/17 07:00 15:00 23:00 07:00 15:00 23:00 Intake Total 720 ml 240 ml 360 ml 820 ml Output Total 525 ml 800 ml 900 ml Balance 195 ml 240 ml -440 ml -80 ml Intake Oral 720 ml 240 ml 360 ml 820 ml Output Urine Total 525 ml 800 ml 900 ml # Voids 2 # Bowel Movements 0 0 2 Result Diagram: 07/27/17 1439 07/27/17 1439 Objective Remarks GENERAL: SKIN: Warm and dry. HEAD: Atraumatic. Normocephalic. EYES: Pupils equal and round. No scleral icterus. No injection or drainage. ENT: No nasal bleeding or discharge. Mucous membranes pink and moist. NECK: Trachea midline. No JVD. CARDIOVASCULAR: Regular rate and rhythm. RESPIRATORY: No accessory muscle use. Clear to auscultation. Breath sounds equal bilaterally. GASTROINTESTINAL: Abdomen soft, non-tender, nondistended. Hepatic and splenic margins not palpable. MUSCULOSKELETAL: Extremities without clubbing, cyanosis, or edema. No obvious deformities. NEUROLOGICAL: Awake and alert. No obvious cranial nerve deficits. Motor grossly within normal limits. Five out of 5 muscle strength in the arms and legs. Normal speech. PSYCHIATRIC: Appropriate mood and affect; insight and judgment normal. Assessment and Plan Assessment and Plan RESPIRATORY FAILURE COPD AMBAR DVT SS ANEMIA MORBID OBESITY ON XARELTO PLAN O2 NEEDED BIPAP IF POSSILBLE , has PAP at home , non compliant BRONCHODILATORS increase activity Regan Spears MD Jul 27, 2017 19:00
[2017-07-28] VITALS (9 sets, daily range): BP systolic 101–131; BP diastolic 60–74; PULSE 79–104; RESP 18–19; TEMP 96.8–98.8; O2SAT 90–98
[2017-07-28] MEDS: ACETAMINOPHEN/HYDROcodone 325 MG/10 MG TAB PO PRN ×4 (01:17→19:37)
[2017-07-28] MEDS: RESP: ALBUTEROL 2.5 MG/IPRATROPIUM 0.5 MG NEB (SCH) NEB ×4 (04:51→20:09)
[2017-07-28] MEDS: metroNIDAZOLE 500 MG TAB PO SCH ×3 (05:33→22:29)
[2017-07-28] MEDS: CHLORHEXIDINE 0.12% (ORAL KIT) 15 ML CUP MT SCH ×2 (08:00→20:00)
[2017-07-28] MEDS: DEFERASIROX 360 MG PO SCH (09:00)
[2017-07-28] MEDS: FUROSEMIDE 20 MG/2 ML VIAL IV PUSH SCH ×2 (09:09→18:31)
[2017-07-28] MEDS: RIVAROXABAN 20 MG TAB PO SCH (09:10)
[2017-07-28] MEDS: FOLIC ACID 1 MG TAB PO SCH (09:10)
[2017-07-28] MEDS: CITALOPRAM HYDROBROMIDE 20 MG TAB PO SCH (09:13)
[2017-07-28] MEDS: BENZTROPINE MESYLATE 1 MG TAB PO SCH ×2 (09:13→22:29)
[2017-07-28] MEDS: HYDROXYUREA 500 MG CAP PO SCH (09:13)
[2017-07-28] MEDS: PALIPERIDONE ER 3 MG TAB PO SCH (09:14)
[2017-07-28] MEDS: POTASSIUM CHLORIDE 25 MEQ EFFERVESCENT TAB PO SCH ×2 (09:14→22:29)
[2017-07-28] MEDS: LEVOFLOXACIN 750 MG PREMIX INJ 150 ML IV SCH (09:28)
--- NOTE | 2017-07-28 15:47 | HHI.PR ---
Subjective Remarks 42F wants to go home today, but she is still saturating in the 80's off of oxygen. She says she has oxygen at home, then proceeds to go into a coughing fit during our visit, wet sounding cough. She just got out of sickle cell crisis 2 days ago. Objective Vitals Vital Signs Date Time Temp Pulse Resp B/P (MAP) Pulse Ox O2 Delivery O2 Flow Rate FiO2 07/28/17 12:00 98.6 90 19 110/70 (83) 97 07/28/17 09:45 2.00 07/28/17 09:45 98 Nasal Cannula 2.00 07/28/17 08:00 98.6 104 19 102/70 (81) 90 07/28/17 05:18 96.8 80 18 128/69 (88) 97 07/28/17 04:18 90 07/28/17 00:24 97.5 79 18 131/69 (89) 96 07/27/17 21:08 95 07/27/17 20:32 99.6 89 18 107/66 (80) 94 07/27/17 16:00 97.6 82 18 118/83 (95) 99 I/O 07/27/17 07/27/17 07/27/17 07/28/17 07/28/17 07/28/17 07:00 15:00 23:00 07:00 15:00 23:00 Intake Total 360 ml 820 ml 480 ml Output Total 800 ml 900 ml 300 ml Balance -440 ml -80 ml 180 ml Intake Oral 360 ml 820 ml 480 ml Output Urine Total 800 ml 900 ml 300 ml # Voids 2 1 # Bowel Movements 0 2 Result Diagram: 07/27/17 1439 07/27/17 1439 Objective Remarks GENERAL: Overweight, alert, interactive SKIN: Warm and dry. HEAD: Normocephalic. EYES: No scleral icterus. No injection or drainage. NECK: Supple, trachea midline. No JVD or lymphadenopathy. CARDIOVASCULAR: Regular rate and rhythm, without murmurs, gallops, or rubs. RESPIRATORY: Mild congestive sounds, very congested cough, bases with atelectasis GASTROINTESTINAL: Abdomen soft, non-tender, nondistended. EXTREMITIES: No cyanosis, or edema. NEUROLOGICAL: Awake, alert, no focal deficits A/P Problem List: (1) Symptomatic anemia ICD Code: D64.9 - Anemia, unspecified Status: Chronic (2) CHF (congestive heart failure) ICD Code: I50.9 - Heart failure, unspecified Status: Acute (3) Sickle cell anemia ICD Code: D57.1 - Sickle-cell disease without crisis Status: Chronic Assessment and Plan Sickle Cell Crisis with Respiratory Failure Desaturation to 89% today on room air Tolerating food well, wants to home, but still coughing loudly Hematology following Pneumonia, MSSA Continue Vancomycin and Azactam started 07/23 Consider sickle cell disease Acute Diastolic CHF Lasix 40 Q12h Appreciate Cardiology following ECHO shows normal EF on 07/20 h/o Schizophrenia Continuing home dose of antipsychotic meds Appears stable, no disorganized thinking Haldon prn for agitation h/o Sleep Apnea Allegedly she is non-compliant with home use of her BIPAP h/o Iron Overload Appreciate Hematology following DVT Prophylaxis h/o DVT Continue Xarelto Discharge Planning Aiming for home healthcare discharge tomorrow Problem Qualifiers (1) CHF (congestive heart failure): Qualified Codes: I50.31 - Acute diastolic (congestive) heart failure (2) Sickle cell anemia: Qualified Codes: D57.00 - Hb-SS disease with crisis, unspecified Didier Gibbs MD Jul 28, 2017 15:47
--- NOTE | 2017-07-28 15:49 | HHI.FF ---
Face to Face Verification Diagnosis: (1) Acute respiratory failure (2) Sickle cell anemia (3) Morbid obesity with BMI of 45.0-49.9, adult (4) Iron overload (5) CHF (congestive heart failure) Home Health Nursing Order: Medical education Signs/symptoms of disease process Oxygen administration education Nursing assessment with vital signs I have seen patient Cary Marte on 07/28/17. My clinical findings support the need for the requested home health care services because: Ltd mobility - disease progression Patient has SOB Deconditioned w/ increased weakness Med compliance is questionable I certify that my clinical findings support that this patient is homebound because: Impaired cognitive ability/safety Unsafe to leave home unassisted Need for psychosocial assistance Unable to use public transportation Didier Gibbs MD Jul 28, 2017 15:49
[2017-07-28] MEDS: SODIUM CHLORIDE 0.9% FLUSH 10 ML FLUSH IV FLUSH SCH (18:32)
--- NOTE | 2017-07-28 18:44 | PD.ONC.PN ---
Subjective Subjective Remarks wants to go home denies any pain. has cough No SOB Objective Data Date Time Temp Pulse Resp B/P (MAP) Pulse Ox O2 Delivery O2 Flow Rate FiO2 07/28/17 16:00 98.0 90 19 121/74 (90) 94 07/28/17 12:00 98.6 90 19 110/70 (83) 97 07/28/17 09:45 2.00 07/28/17 09:45 98 Nasal Cannula 2.00 07/28/17 08:00 98.6 104 19 102/70 (81) 90 07/28/17 05:18 96.8 80 18 128/69 (88) 97 07/28/17 04:18 90 07/28/17 00:24 97.5 79 18 131/69 (89) 96 07/27/17 21:08 95 07/27/17 20:32 99.6 89 18 107/66 (80) 94 07/28/17 07/28/17 07/28/17 07:00 15:00 23:00 Intake Total 480 ml Output Total 300 ml Balance 180 ml Result Diagram: 07/27/17 1439 07/27/17 1439 Administered Medications Medications (Trade) Dose Ordered Sig/Gini Route PRN Reason Start Time Stop Time Status Last Admin Dose Admin Sodium Chloride (NS Flush) 2 ml BID IV FLUSH 07/18/17 21:00 07/28/17 18:32 Benztropine Mesylate (Cogentin) 1 mg BID PO 07/19/17 09:00 07/28/17 09:13 Citalopram Hydrobromide (CeleXA) 20 mg DAILY PO 07/19/17 09:00 07/28/17 09:13 Folic Acid (Folate) 1 mg DAILY PO 07/19/17 09:00 07/28/17 09:10 Hydroxyurea (Hydrea) 1,000 mg DAILY PO 07/19/17 09:00 07/28/17 09:13 Paliperidone Palmitate (Invega Er) 3 mg DAILY PO 07/19/17 09:00 07/28/17 09:14 Rivaroxaban (Xarelto) 20 mg DAILY PO 07/19/17 09:00 07/28/17 09:10 Patient Own Medication PT OWN MED: Deferasi... DAILY PO 07/19/17 11:00 07/25/17 09:00 Chlorhexidine Gluconate (Peridex 0.12% Liq) 15 ml BID@08,20 MT 07/21/17 20:00 07/27/17 20:00 Furosemide (Lasix Inj) 40 mg BID@,18 IV PUSH 07/23/17 18:00 07/28/17 18:31 Potassium Bicarb/ Potassium Chloride (K-Lyte Cl Eff) 25 meq Q12HR PO 07/23/17 16:00 07/28/17 09:14 Metronidazole (Flagyl) 500 mg Q8HR PO 07/24/17 17:45 07/28/17 15:32 Levofloxacin/ Dextrose 150 ml @ 100 mls/hr Q24H IV 07/25/17 09:00 07/28/17 09:28 Albuterol/ Ipratropium (Duoneb Neb) 1 ampule Q6HR NEB NEB 07/25/17 10:00 07/28/17 16:38 Acetaminophen (Tylenol) 650 mg Q6H PRN PO PAIN 07/26/17 02:00 07/26/17 02:42 Acetaminophen/ Hydrocodone Bitart (Lawtell 10-325 Mg) 1 tab Q4H PRN PO pain 1-10 07/26/17 13:45 07/28/17 15:32 Objective Remarks GENERAL: Well-nourished, well-developed patient. SKIN: Warm and dry. HEAD: Normocephalic. EYES: No scleral icterus. No injection or drainage. NECK: Supple, trachea midline. No JVD or lymphadenopathy. LYMPHATIC: No adenopathy. CARDIOVASCULAR: Regular rate and rhythm without murmurs. RESPIRATORY: Breath sounds equal bilaterally. No accessory muscle use. GASTROINTESTINAL: Abdomen soft, non-tender, nondistended. EXTREMITIES: No cyanosis, or edema. NEUROLOGICAL: No obvious focal deficit. Awake, alert, and oriented x3. Assessment/Plan Problem List: (1) Sickle cell anemia ICD Codes: D57.1 - Sickle-cell disease without crisis Status: Chronic Plan: 07/28/16 H/H is stable appears that crisis is over. Ok to d/c FU as outpt. (2) CHF (congestive heart failure) ICD Codes: I50.9 - Heart failure, unspecified Status: Acute Plan: --cardiology following (3) Iron overload ICD Codes: E83.19 - Other disorders of iron metabolism [facility]: [facility] (4) Right leg DVT ICD Codes: I82.401 - Acute embolism and thrombosis of unspecified deep veins of right lower extremity Plan: --on xarelto. --s/p IVC filter placement. (5) Obstructive sleep apnea hypopnea, severe ICD Codes: G47.33 - Obstructive sleep apnea (adult) (pediatric) Status: Chronic Assessment 42y/o female with sicle cell anemia admitted in vasoocclusive crises. h/o DVT in the right lower extremity-->on Xarelto and had an IVC filter placed. h/o Sickle-cell anemia with multiple painful crises. Sleep apnea. Congestive heart failure. Schizophrenia. Problem Qualifiers (1) Sickle cell anemia: Qualified Codes: D57.00 - Hb-SS disease with crisis, unspecified (2) CHF (congestive heart failure): Qualified Codes: I50.31 - Acute diastolic (congestive) heart failure (3) Right leg DVT: Nina Villa MD Jul 28, 2017 18:44
--- NOTE | 2017-07-28 19:00 | HHI.PR ---
Subjective Remarks alert no sob Objective Vital Signs Date Time Temp Pulse Resp B/P (MAP) Pulse Ox O2 Delivery O2 Flow Rate FiO2 07/28/17 16:00 98.0 90 19 121/74 (90) 94 07/28/17 12:00 98.6 90 19 110/70 (83) 97 07/28/17 09:45 2.00 07/28/17 09:45 98 Nasal Cannula 2.00 07/28/17 08:00 98.6 104 19 102/70 (81) 90 07/28/17 05:18 96.8 80 18 128/69 (88) 97 07/28/17 04:18 90 07/28/17 00:24 97.5 79 18 131/69 (89) 96 07/27/17 21:08 95 07/27/17 20:32 99.6 89 18 107/66 (80) 94 I/O 07/27/17 07/27/17 07/27/17 07/28/17 07/28/17 07/28/17 07:00 15:00 23:00 07:00 15:00 23:00 Intake Total 360 ml 820 ml 480 ml Output Total 800 ml 900 ml 300 ml Balance -440 ml -80 ml 180 ml Intake Oral 360 ml 820 ml 480 ml Output Urine Total 800 ml 900 ml 300 ml # Voids 2 1 # Bowel Movements 0 2 Result Diagram: 07/27/17 1439 07/27/17 1439 Objective Remarks GENERAL: SKIN: Warm and dry. HEAD: Atraumatic. Normocephalic. EYES: Pupils equal and round. No scleral icterus. No injection or drainage. ENT: No nasal bleeding or discharge. Mucous membranes pink and moist. NECK: Trachea midline. No JVD. CARDIOVASCULAR: Regular rate and rhythm. RESPIRATORY: No accessory muscle use. Clear to auscultation. Breath sounds equal bilaterally. GASTROINTESTINAL: Abdomen soft, non-tender, nondistended. Hepatic and splenic margins not palpable. MUSCULOSKELETAL: Extremities without clubbing, cyanosis, or edema. No obvious deformities. NEUROLOGICAL: Awake and alert. No obvious cranial nerve deficits. Motor grossly within normal limits. Five out of 5 muscle strength in the arms and legs. Normal speech. PSYCHIATRIC: Appropriate mood and affect; insight and judgment normal. Assessment and Plan Assessment and Plan RESPIRATORY FAILURE COPD AMBAR DVT SS ANEMIA MORBID OBESITY PLAN O2 NEEDED BIPAP IF POSSILBLE , has PAP at home , non compliant BRONCHODILATORS increase activity Regan Spears MD Jul 28, 2017 19:00
--- NOTE | 2017-07-28 20:39 | RADRPT ---
EXAM DATE/TIME: 07/28/2017 20:24 [facility] COMPARISON: CHEST SINGLE AP, July 25, 2017, 3:54. INDICATIONS : Cough. MEDICAL HISTORY : Chronic obstructive pulmonary disease. Sickle Cell disease. SURGICAL HISTORY : Infusaport. ENCOUNTER: Subsequent ACUITY: 1 week PAIN SCORE: 0/10 LOCATION: Bilateral chest FINDINGS: Cardiomegaly has not changed and the sickle cell changes of the patient's thoracic spine have not marcella nged. Focal consolidation is not seen. CONCLUSION: Stable cardiomegaly. Aisha Terry MD on July 28, 2017 at 20:37 Board Certified Radiologist. This report was verified electronically.
[2017-07-29] VITALS (7 sets, daily range): BP systolic 99–121; BP diastolic 58–72; PULSE 95–102; RESP 18; TEMP 97.2–98.4; O2SAT 92–96
[2017-07-29] MEDS: ACETAMINOPHEN/HYDROcodone 325 MG/10 MG TAB PO PRN ×5 (00:22→23:02)
[2017-07-29] MEDS: SODIUM CHLORIDE 0.9% FLUSH 10 ML FLUSH IV FLUSH SCH ×3 (00:23→23:02)
[2017-07-29] MEDS: RESP: ALBUTEROL 2.5 MG/IPRATROPIUM 0.5 MG NEB (SCH) NEB ×3 (03:37→20:44)
[2017-07-29] MEDS: metroNIDAZOLE 500 MG TAB PO SCH ×3 (06:56→23:02)
[2017-07-29 07:20] LABS: BASOPHIL # 0.1 TH/MM3 (0-0.2); BASOPHIL % 1.2 % (0.0-2.0); EOSINOPHIL # 0.1 TH/MM3 (0-0.4); EOSINOPHIL % 1.6 % (0.0-4.0); HEMATOCRIT 21.7 % (35.0-46.0); HEMOGLOBIN 7.5 GM/DL (11.6-15.3); LYMPH % 9.2 % (9.0-44.0); LYMPHOCYTE # 0.8 TH/MM3 (1.0-4.8); MEAN CELL VOLUME 90.5 FL (80.0-100.0); MEAN CORPUSCULAR HEMOGLOBIN 31.3 PG (27.0-34.0); MEAN CORPUSCULAR HGB CONC 34.5 % (32.0-36.0); MEAN PLATELET VOLUME 10.1 FL (7.0-11.0); MONO % 15.3 % (0.0-8.0); MONOCYTE # 1.3 TH/MM3 (0-0.9); NEUT % 72.7 % (16.0-70.0); PLATELET COUNT 161 TH/MM3 (150-450); RED CELL DISTRIBUTION WIDTH 24.1 % (11.6-17.2); WHITE BLOOD COUNT 8.3 TH/MM3 (4.0-11.0)
[2017-07-29] MEDS: CHLORHEXIDINE 0.12% (ORAL KIT) 15 ML CUP MT SCH ×2 (08:00→20:00)
[2017-07-29] MEDS: DEFERASIROX 360 MG PO SCH (09:00)
[2017-07-29] MEDS: LEVOFLOXACIN 750 MG PREMIX INJ 150 ML IV SCH (09:26)
[2017-07-29] MEDS: PALIPERIDONE ER 3 MG TAB PO SCH (09:27)
[2017-07-29] MEDS: FUROSEMIDE 20 MG/2 ML VIAL IV PUSH SCH ×2 (09:27→18:47)
[2017-07-29] MEDS: FOLIC ACID 1 MG TAB PO SCH (09:27)
[2017-07-29] MEDS: CITALOPRAM HYDROBROMIDE 20 MG TAB PO SCH (09:28)
[2017-07-29] MEDS: RIVAROXABAN 20 MG TAB PO SCH (09:28)
[2017-07-29] MEDS: POTASSIUM CHLORIDE 25 MEQ EFFERVESCENT TAB PO SCH ×2 (09:28→23:01)
[2017-07-29] MEDS: HYDROXYUREA 500 MG CAP PO SCH (09:29)
[2017-07-29] MEDS: BENZTROPINE MESYLATE 1 MG TAB PO SCH ×2 (09:29→23:01)
[2017-07-29] MEDS ORDERED: LEVA750T9 PO (10:11)
--- NOTE | 2017-07-29 10:20 | HHI.DS ---
Discharge Summary Admission Date Jul 18, 2017 at 20:05 Discharge Date: Jul 29, 2017 Admitting Diagnosis (1) Symptomatic anemia ICD Code: D64.9 - Anemia, unspecified Status: Chronic (2) CHF (congestive heart failure) ICD Code: I50.9 - Heart failure, unspecified Status: Acute (3) Sickle cell anemia ICD Code: D57.1 - Sickle-cell disease without crisis Status: Chronic Procedures intubation / extubation Brief History - From Admission 42 y/o female with a history of sickle cell anemia, schizophrenia, sleep apnea and chf presented to the [facility] ED with complaints of shortness of breath. She was found to have a hgb of 5.1 and transferred to the [facility]. Patient is lethargic at bedside, previously received pain medicine and has severe sleep apnea. Significant other is at bedside to provide information. Significant other states patient has been short of breath for a few months and was seen previously one month ago at [facility]. He states she was found to have a DVT in her right lower extremity and placed on Xarelto with an IVC filter placed. She is trying to follow up outpatient with the scientific helper and children's program coordinator and is in the process of filling out paperwork to be seen. He states she has sleep apnea but due to her schizophrenia and claustrophobia she is unable to wear a CPAP at home. Upon examination patient is pretty lethargic , opens eyes to painful stimuli. She is able to state she is not in any pain, but then dozes back off to sleep. Significant other does state she has CHF but is unsure of her ejection fraction. Since patient has mostly been seen at [facility], we do not have any baseline records, and records will be requested from [facility]. CBC/BMP: 07/29/17 0620 07/27/17 1439 Significant Findings Laboratory Tests Test 07/26/17 13:35 07/27/17 14:39 07/29/17 06:20 Red Blood Count 2.58 MIL/MM3 (4.00-5.30) 2.65 MIL/MM3 (4.00-5.30) 2.40 MIL/MM3 (4.00-5.30) Hemoglobin 8.3 GM/DL (11.6-15.3) 8.3 GM/DL (11.6-15.3) 7.5 GM/DL (11.6-15.3) Hematocrit 23.6 % (35.0-46.0) 24.4 % (35.0-46.0) 21.7 % (35.0-46.0) Red Cell Distribution Width 25.6 % (11.6-17.2) 25.4 % (11.6-17.2) 24.1 % (11.6-17.2) Platelet Count 148 TH/MM3 (150-450) Monocytes (%) (Auto) 12.4 % (0.0-8.0) 12.4 % (0.0-8.0) 15.3 % (0.0-8.0) Monocytes # (Auto) 1.2 TH/MM3 (0-0.9) 1.0 TH/MM3 (0-0.9) 1.3 TH/MM3 (0-0.9) Platelet Estimate LOW (NORMAL) Platelet Morphology Comment ENLARGED (NORMAL) Sickle Cells 1+ (NORMAL) 1+ (NORMAL) Target Cells 1+ (NORMAL) 1+ (NORMAL) Acanthocytes OCC (NORMAL) OCC (NORMAL) Neutrophils (%) (Auto) 72.2 % (16.0-70.0) 72.7 % (16.0-70.0) Blood Urea Nitrogen 32 MG/DL (7-18) Calcium Level 8.4 MG/DL (8.5-10.1) Lymphocytes # (Auto) 0.8 TH/MM3 (1.0-4.8) PE at Discharge GENERAL: Overweight, alert, interactive SKIN: Warm and dry. HEAD: Normocephalic. EYES: No scleral icterus. No injection or drainage. NECK: Supple, trachea midline. No JVD or lymphadenopathy. CARDIOVASCULAR: Regular rate and rhythm, without murmurs, gallops, or rubs. RESPIRATORY: Mild congestive sounds, very congested cough, bases with atelectasis GASTROINTESTINAL: Abdomen soft, non-tender, nondistended. EXTREMITIES: No cyanosis, or edema. NEUROLOGICAL: Awake, alert, no focal deficits Hospital Course 42F with sickle cell disease and obstructive sleep apnea presented with signs of sepsis that progressed to respiratory failure. She spent a few days in the ICU on the vent, and extubated. She has recently been clear from signs of sepsis, though the clearence of her lungs has been slower to progress. At home she uses oxygen daily, and has that set up awaiting her. She is covered for sepsis (UTI and possible PNA), but is high PNA risk due to her SS Crisis. She will be covered with Levaquin for another week and is appropriate for home discharge today. She needs to use her BIPAP machine to prevent hypoxemia that triggers sickle cell crisis (recurrent pattern). Follow up recommended with hematology and primary care this week. Pt Condition on Discharge: Fair Discharge Disposition: Disch w/ Home Health Serv Discharge Time: <= 30 minutes Discharge Instructions DIET: Follow Instructions for: Diabetic Diet Activities you can perform: Weight Bearing as Didier Pereira MD Jul 29, 2017 10:20
--- NOTE | 2017-07-29 17:19 | HHI.PR ---
Subjective Remarks alert no sob Objective Vital Signs Date Time Temp Pulse Resp B/P (MAP) Pulse Ox O2 Delivery O2 Flow Rate FiO2 07/29/17 16:00 97.9 95 18 121/68 (85) 96 07/29/17 12:00 97.8 102 18 110/72 (85) 92 07/29/17 09:50 2.00 07/29/17 09:34 92 Nasal Cannula 2.00 07/29/17 08:00 97.9 98 18 99/62 (74) 92 07/29/17 04:00 97.2 102 18 107/58 (74) 96 07/29/17 00:00 98.4 100 18 112/71 (85) 92 07/28/17 20:09 93 Nasal Cannula 2.00 07/28/17 20:00 98.8 100 18 101/60 (74) 94 I/O 07/28/17 07/28/17 07/28/17 07/29/17 07/29/17 07/29/17 07:00 15:00 23:00 07:00 15:00 23:00 Intake Total 480 ml 960 ml Output Total 300 ml 2200 ml 100 ml Balance 180 ml -1240 ml -100 ml Intake Oral 480 ml 960 ml Output Urine Total 300 ml 2200 ml 100 ml # Voids 1 # Bowel Movements 0 Result Diagram: 07/29/17 0620 07/27/17 1439 Objective Remarks GENERAL: SKIN: Warm and dry. HEAD: Atraumatic. Normocephalic. EYES: Pupils equal and round. No scleral icterus. No injection or drainage. ENT: No nasal bleeding or discharge. Mucous membranes pink and moist. NECK: Trachea midline. No JVD. CARDIOVASCULAR: Regular rate and rhythm. RESPIRATORY: No accessory muscle use. Clear to auscultation. Breath sounds equal bilaterally. GASTROINTESTINAL: Abdomen soft, non-tender, nondistended. Hepatic and splenic margins not palpable. MUSCULOSKELETAL: Extremities without clubbing, cyanosis, or edema. No obvious deformities. NEUROLOGICAL: Awake and alert. No obvious cranial nerve deficits. Motor grossly within normal limits. Five out of 5 muscle strength in the arms and legs. Normal speech. PSYCHIATRIC: Appropriate mood and affect; insight and judgment normal. Assessment and Plan Assessment and Plan RESPIRATORY FAILURE COPD AMBAR DVT SS ANEMIA MORBID OBESITY PLAN O2 NEEDED BIPAP IF POSSILBLE , has PAP at home , non compliant BRONCHODILATORS increase activity HOME SOON Regan Spears MD Jul 29, 2017 17:19
[2017-07-30] VITALS: BP 103/61; PULSE 98; RESP 18; TEMP 97.5; O2SAT 96
[2017-07-30 04:00] VITALS: BP 106/66; PULSE 96; RESP 20; TEMP 97.8; O2SAT 97
[2017-07-30] MEDS: metroNIDAZOLE 500 MG TAB PO SCH ×2 (05:54→15:50)
[2017-07-30] MEDS: ACETAMINOPHEN/HYDROcodone 325 MG/10 MG TAB PO PRN ×3 (05:55→15:50)
[2017-07-30] MEDS: DEFERASIROX 360 MG PO SCH (07:08)
[2017-07-30] MEDS: CHLORHEXIDINE 0.12% (ORAL KIT) 15 ML CUP MT SCH (07:08)
[2017-07-30 08:00] VITALS: BP 100/59; PULSE 104; RESP 18; TEMP 97.9; O2SAT 94
[2017-07-30] MEDS: FOLIC ACID 1 MG TAB PO SCH (08:41)
[2017-07-30] MEDS: BENZTROPINE MESYLATE 1 MG TAB PO SCH (08:41)
[2017-07-30] MEDS: FUROSEMIDE 20 MG/2 ML VIAL IV PUSH SCH (08:41)
[2017-07-30] MEDS: CITALOPRAM HYDROBROMIDE 20 MG TAB PO SCH (08:41)
[2017-07-30] MEDS: POTASSIUM CHLORIDE 25 MEQ EFFERVESCENT TAB PO SCH (08:41)
[2017-07-30] MEDS: PALIPERIDONE ER 3 MG TAB PO SCH (08:41)
[2017-07-30] MEDS: RIVAROXABAN 20 MG TAB PO SCH (08:41)
[2017-07-30] MEDS: HYDROXYUREA 500 MG CAP PO SCH (08:43)
[2017-07-30] MEDS: SODIUM CHLORIDE 0.9% FLUSH 10 ML FLUSH IV FLUSH SCH (08:47)
[2017-07-30] MEDS: LEVOFLOXACIN 750 MG PREMIX INJ 150 ML IV SCH (08:47)
[2017-07-30 12:00] VITALS: BP 113/71; PULSE 95; RESP 18; TEMP 96.7; O2SAT 98
[2017-07-30 16:00] VITALS: BP 114/76; PULSE 93; RESP 17; TEMP 96.6; O2SAT 94
--- NOTE | 2017-07-30 16:16 | HHI.PR ---
Subjective Remarks 42-year-old female who had a sickle cell crisis that she is currently recovering from. She was discharged yesterday remains here due to the arrangement of home health care. She states her breathing is improving. Objective Vitals Vital Signs Date Time Temp Pulse Resp B/P (MAP) Pulse Ox O2 Delivery O2 Flow Rate FiO2 07/30/17 12:00 96.7 95 18 113/71 (85) 98 07/30/17 08:00 97.9 104 18 100/59 (73) 94 07/30/17 04:00 97.8 96 20 106/66 (79) 97 07/30/17 00:00 97.5 98 18 103/61 (75) 96 07/29/17 20:00 98.2 95 18 108/66 (80) 96 I/O 07/29/17 07/29/17 07/29/17 07/30/17 07/30/17 07/30/17 06:59 14:59 22:59 06:59 14:59 22:59 Intake Total 840 ml 240 ml Output Total 100 ml Balance -100 ml 840 ml 240 ml Intake Oral 840 ml 240 ml Output Urine Total 100 ml # Voids 6 3 # Bowel Movements 0 1 Result Diagram: 07/29/17 0620 07/27/17 1439 Objective Remarks GENERAL: Overweight, alert, interactive SKIN: Warm and dry. HEAD: Normocephalic. EYES: No scleral icterus. No injection or drainage. NECK: Supple, trachea midline. No JVD or lymphadenopathy. CARDIOVASCULAR: Regular rate and rhythm, without murmurs, gallops, or rubs. RESPIRATORY: Mild congestive sounds, very congested cough, bases with atelectasis GASTROINTESTINAL: Abdomen soft, non-tender, nondistended. EXTREMITIES: No cyanosis, or edema. NEUROLOGICAL: Awake, alert, no focal deficits Procedures intubation / extubation A/P Problem List: (1) Symptomatic anemia ICD Code: D64.9 - Anemia, unspecified Status: Chronic (2) CHF (congestive heart failure) ICD Code: I50.9 - Heart failure, unspecified Status: Acute (3) Sickle cell anemia ICD Code: D57.1 - Sickle-cell disease without crisis Status: Chronic Assessment and Plan Sickle Cell Crisis with Respiratory Failure Desaturation to 89% yesterday on room air, she has oxygen at home Tolerating food well, cough has improved Hematology following Pneumonia, MSSA Transition to Levaquin on discharge CHF Continue home Lasix dose h/o Schizophrenia Continue home meds h/o Sleep Apnea Encourage BiPAP use at home h/o Iron Overload Appreciate Hematology following DVT Prophylaxis h/o DVT Continue Xarelto Discharge Planning Discharge held due to arrangement for home health care Problem Qualifiers (1) CHF (congestive heart failure): Qualified Codes: I50.31 - Acute diastolic (congestive) heart failure (2) Sickle cell anemia: Qualified Codes: D57.00 - Hb-SS disease with crisis, unspecified Didier Gibbs MD Jul 30, 2017 16:16
== END 2017-07-30 17:04 | disposition home health service (06) | DRG 811 ==
LOC: NEDDLT 19:55 → HIME 20:05 → N07B 07-26 16:07
PROVIDERS: ADMIT Internal Medicine; ATTEND Family Medicine
PROC: 30233N1 Transfusion of Nonautologous Red Blood Cells into Peripheral Vein, Percutaneous Approach (ICD-10-PCS; principal; 2017-07-18)
PROC: 5A1945Z Respiratory Ventilation, 24-96 Consecutive Hours (ICD-10-PCS; 2017-07-21)
PROC: 0BH18EZ Insertion of Endotracheal Airway into Trachea, Via Natural or Artificial Opening Endoscopic (ICD-10-PCS; 2017-07-21)
DX: D57.00 Hb-SS disease with crisis, unspecified (principal); J96.01 Acute respiratory failure with hypoxia; J96.02 Acute respiratory failure with hypercapnia; J15.211 Pneumonia due to Methicillin susceptible Staphylococcus aureus; I50.33 Acute on chronic diastolic (congestive) heart failure; I82.501 Chronic embolism and thrombosis of unspecified deep veins of right lower extremity; Z68.42 Body mass index [BMI] 45.0-49.9, adult; A04.72 Enterocolitis due to Clostridium difficile, not specified as recurrent; N17.9 Acute kidney failure, unspecified; G47.33 Obstructive sleep apnea (adult) (pediatric); E66.01 Morbid (severe) obesity due to excess calories; F20.9 Schizophrenia, unspecified; F40.240 Claustrophobia; E87.6 Hypokalemia; G89.29 Other chronic pain; E83.10 Disorder of iron metabolism, unspecified; Z79.01 Long term (current) use of anticoagulants; Z71.3 Dietary counseling and surveillance; Z88.5 Allergy status to narcotic agent; Z88.0 Allergy status to penicillin; Z88.8 Allergy status to other drugs, medicaments and biological substances
CPT/HCPCS: 31500; 36430; 36600; 71045; 71046; 76937; 78582; 80048; 80053; 80076; 80202; 82550; 82728; 82805; 82948; 83615; 83735; 83880; 84100; 84484; 85007; 85014; 85018; 85025; 85027; 85044; 85379; 85610; 85730; 86403; 86850; 86900; 86901; 86920; 87070; 87147; 87186; 87205; 87493; 87641; 93005; 93306; 94002; 94003; 94150; 94618; 94640; 94664; 94667; 94668; 96374; A9540; A9567; J0330; J1100; J1940; J1956; J2270; J2930; J3010; J3370; J3480; J7050; P9016

== ENCOUNTER 2017-08-12 19:55 | Inpatient (IN) | payer OTHER, MEDICAID, MEDICARE ==
[2017-08-12] VITALS (8 sets, daily range): BP systolic 99–128; BP diastolic 51–58; PULSE 72–99; RESP 14–18; TEMP 97.9–98.7; O2SAT 90–98
[~2017-08-12] VITALS: Ht 162.6 cm; Wt 107.6 kg
[~2017-08-12 19:55] MED LIST changes: -BACT800T5 PO; +LEVA750T9 PO
[2017-08-12] MEDS ORDERED: SODIUM CHLORIDE 0.9% FLUSH 10 ML FLUSH IVF PRN (20:30)
--- NOTE | 2017-08-12 20:40 | PD ---
HPI Chief Complaint: Pain: Acute or Chronic Time Seen by Provider: 20:20 Travel History International Travel<30 days: No Contact w/Intl Traveler<30days: No Traveled to known affect area: No History of Present Illness HPI 42-year-old female presents to the emergency department via EMS for evaluation of bilateral leg pain. Patient is a poor historian. Patient was recently discharged from July 29, 2017 for CHF, sepsis, respiratory distress. She was found to be severely anemic with a hemoglobin of 5.1. Patient has positive history of sickle cell anemia, schizophrenia, sleep apnea, CHF. Patient has history of DVT in her right lower extremity and is on Xarelto with an IVC filter placed. Patient states that she wears oxygen at home, 2 L, but increase it to 3 liters today. The patient appears short of breath on exam. Patient denies any chest pain. No abdominal pain. No nausea, vomiting, diarrhea. Current pain 9/10 to the bilateral lower extremities without radiation. Moderate severity. PFSH Past Medical History Asthma: No Autoimmune Disease: No Blood Disorders: No Bipolar Disorder: Yes Depression: Yes Cancer: No Cardiovascular Problems: No Congestive Heart Failure: Yes COPD: Yes Diabetes: No Diminished Hearing: No Genitourinary: No Musculoskeletal: No Neurologic: No Psychiatric: No Reproductive: No Respiratory: No Schizophrenia: Yes Sickle Cell Disease: Yes Sleep Apnea: No Tetanus Vaccination: Unknown Influenza Vaccination: Yes ?: Not Past Surgical History Abdominal Surgery: Yes (GALLBLADDER) AICD: No Cholecystectomy: Yes Genitourinary Surgery: No Pacemaker: No Thoracic Surgery: No Social History Alcohol Use: No Tobacco Use: No Substance Use: No Allergies-Medications (Allergen,Severity, Reaction): Coded Allergies: butorphanol (Unverified Allergy, Severe, 08/12/17) chlorpromazine (Unverified Allergy, Severe, 08/12/17) hydromorphone (Unverified Allergy, Severe, 08/12/17) ketorolac (Unverified Allergy, Severe, 08/12/17) nalbuphine (Unverified Allergy, Severe, 08/12/17) penicillin G (Unverified Allergy, Severe, 08/12/17) Reported Meds & Prescriptions Reported Meds & Active Scripts Active Levaquin (Levofloxacin) 750 Mg Tablet 750 Mg PO DAILY 7 Days Reported Fentanyl Patch 72 HR (Fentanyl) 50 Mcg/Hr Patch 50 Mcg T-DERMAL Q72H Remove old patch when new one placed. [place] (Hydrocodone-Acetaminophen) 10-325 Mg Tab 1 Tab PO QID PRN Hydrea (Hydroxyurea) 500 Mg Cap 1,000 Mg PO DAILY Xarelto (Rivaroxaban) 20 Mg Tab 20 Mg PO DAILY Lasix (Furosemide) 20 Mg Tab 20 Mg PO DAILY Jadenu (Deferasirox) 360 Mg Tab 1,080 Mg PO DAILY Folic Acid 0.4 Mg Tab 1 Mg PO DAILY Benztropine (Benztropine Mesylate) 0.5 Mg Tab 1 Mg PO BID Citalopram (Citalopram Hydrobromide) 20 Mg Tab 20 Mg PO DAILY Paliperidone ER 3 Mg Tab 3 Mg PO DAILY Review of Systems Except as stated in HPI: all other systems reviewed are Neg Physical Exam Narrative GENERAL: Well-nourished, well-developed obese female patient, afebrile. SKIN: Focused skin assessment warm/dry. HEAD: Normocephalic. Atraumatic EYES: No scleral icterus. No injection or drainage. NECK: Supple, trachea midline. No JVD or lymphadenopathy. CARDIOVASCULAR: Regular rate and rhythm without murmurs, gallops, or rubs. Bilateral pedal pulses 2+ RESPIRATORY: Breath sounds equal bilaterally. No accessory muscle use. Lungs sounds with scattered rhonchi throughout. GASTROINTESTINAL: Abdomen distended, no tenderness to palpation. MUSCULOSKELETAL: No cyanosis. Right lower extremity 4+ pitting edema, left lower extremity 2+ pitting edema. BACK: Nontender without obvious deformity. No CVA tenderness. Data Data Last Documented VS Vital Signs Date Time Temp Pulse Resp B/P (MAP) Pulse Ox O2 Delivery O2 Flow Rate FiO2 08/12/17 21:13 82 18 101/53 (69) 94 Nasal Cannula 3.00 08/12/17 20:08 98.3 Orders Orders Electrocardiogram (08/12/17 20:28) B-Type Natriuretic Peptide (08/12/17 20:28) Ckmb (Isoenzyme) Profile (08/12/17 20:28) Complete Blood Count With Diff (08/12/17 20:28) Comprehensive Metabolic Panel (08/12/17 20:28) Magnesium (Mg) (08/12/17 20:28) Prothrombin Time / Inr (Pt) (08/12/17 20:28) Act Partial Throm Time (Ptt) (08/12/17 20:28) Troponin I (08/12/17 20:28) Chest, Single Ap (08/12/17 20:28) Ecg Monitoring (08/12/17 20:28) Bilateral Bp Monitoring (08/12/17 20:28) Iv Access Insert/Monitor (08/12/17 20:28) Oximetry (08/12/17 20:28) Oxygen Administration (08/12/17 20:28) Sodium Chloride 0.9% Flush (Ns Flush) (08/12/17 20:30) Urinalysis - C+S If Indicated (08/12/17 20:28) Ed Urine Pregnancytest Poc (08/12/17 20:28) Cath For Specimen (08/12/17 20:28) Retic Count (08/12/17 20:28) Us Leg Venous Doppler Bilat (08/12/17 ) Type And Screen (08/12/17 21:17) Red Blood Cells (Rbc) (08/12/17 21:17) Blood Product Administration (08/12/17 21:17) Sodium Chlor 0.9% 250 Ml Inj (Ns 250 Ml (08/12/17 21:30) Furosemide Inj (Lasix Inj) (08/12/17 21:30) Admit Order (Ed Use Only) (08/12/17 22:14) Labs Laboratory Tests Test 08/12/17 20:43 08/12/17 20:55 White Blood Count 7.4 TH/MM3 Red Blood Count 2.14 MIL/MM3 Hemoglobin 6.6 GM/DL Hematocrit 19.2 % Mean Corpuscular Volume 89.7 FL Mean Corpuscular Hemoglobin 31.0 PG Mean Corpuscular Hemoglobin Concent 34.6 % Red Cell Distribution Width 24.1 % Platelet Count 227 TH/MM3 Mean Platelet Volume 9.6 FL Neutrophils (%) (Auto) 61.4 % Lymphocytes (%) (Auto) 16.7 % Monocytes (%) (Auto) 18.6 % Eosinophils (%) (Auto) 2.3 % Basophils (%) (Auto) 1.0 % Neutrophils # (Auto) 4.5 TH/MM3 Lymphocytes # (Auto) 1.2 TH/MM3 Monocytes # (Auto) 1.4 TH/MM3 Eosinophils # (Auto) 0.2 TH/MM3 Basophils # (Auto) 0.1 TH/MM3 CBC Comment AUTO DIFF Reticulocyte Count 11.6 % Absolute Reticulocyte Count 248.7 MIL/L Prothrombin Time 17.0 SEC Prothromb Time International Ratio 1.7 RATIO Activated Partial Thromboplast Time 52.3 SEC Blood Urea Nitrogen 54 MG/DL Creatinine 1.55 MG/DL Random Glucose 99 MG/DL Total Protein 8.5 GM/DL Albumin 3.6 GM/DL Calcium Level 8.5 MG/DL Magnesium Level 2.1 MG/DL Alkaline Phosphatase 157 U/L Aspartate Amino Transf (AST/SGOT) 52 U/L Alanine Aminotransferase (ALT/SGPT) 15 U/L Total Bilirubin 3.9 MG/DL Sodium Level 132 MEQ/L Potassium Level 4.9 MEQ/L Chloride Level 95 MEQ/L Carbon Dioxide Level 30.2 MEQ/L Anion Gap 7 MEQ/L Estimat Glomerular Filtration Rate 44 ML/MIN Total Creatine Kinase 11 U/L Troponin I LESS THAN 0.02 NG/ML B-Type Natriuretic Peptide 517 PG/ML Urine Color RED Urine Turbidity CLEAR Urine pH 5.0 Urine Specific [place] 1.012 Urine Protein NEG mg/dL Urine Glucose (UA) NEG mg/dL Urine Ketones NEG mg/dL Urine Occult Blood TRACE Urine Nitrite NEG Urine Bilirubin NEG Urine Urobilinogen LESS THAN 2.0 MG/DL Urine Leukocyte Esterase NEG Urine WBC 1 /hpf Urine Squamous Epithelial Cells <1 /hpf Urine Amorphous Sediment RARE Urine Hyaline Casts 12 /lpf Urine Mucus FEW /lpf Microscopic Urinalysis Comment CATH-CULT NOT IND MDM Medical Decision Making Medical Screen Exam Complete: Yes Emergency Medical Condition: Yes Medical Record Reviewed: Yes Interpretation(s) Last Impressions Chest X-Ray 08/12/172027 Signed Impressions: Service Date/Time: August 20:39 - CONCLUSION: Significantly enlarged heart. Mild increased interstitial markings suggesting mild pulmonary vascular congestion or infiltrates. Tong Michael MD Differential Diagnosis Sickle cell crisis versus CHF exacerbation versus pneumonia versus DVT versus fluctuant abnormality versus anemia Narrative Course 42-year-old female presents to the emergency department for evaluation of bilateral lower extremity pain. She also appears to be short of breath and has increased her oxygen today. EKG, CBC, CMP, magnesium, BNP, CK, troponin, PTT, PT/INR, UA, urine test, reticulocyte count are ordered and pending. Chest x-ray and venous Doppler ultrasound of bilateral lower extremities are ordered and pending. EKG shows sinus rhythm, heart rate 81, no acute ST changes. CBC shows anemia of hemoglobin 6.6, hematocrit 19.2. CMP shows BUN 54, creatinine 1.55, bilirubin 3.9, AST 52, alkaline phosphatase 157. Magnesium is 2.1. CK is 11. Troponin is less than 0.02. BNP is 517. PT is 17.0, INR 1.7, PTT 52.3. UA shows no acute infection. UPT is negative. Chest x-ray shows significantly enlarged heart, mild increased interstitial markings suggesting mild pulmonary vascular congestion or infiltrates. US is pending 2 units packed red blood cells are ordered. Patient will be given Lasix 40 mg in between units. [facility] p[facility] for admission. Dr. Cabrera accepted admission. Diagnosis Primary Impression: Anemia Qualified Codes: D64.9 - Anemia, unspecified Additional Impression: CHF exacerbation Qualified Codes: I50.9 - Heart failure, unspecified Admitting Information Admitting Physician Requests: Admit Nasra Aburto Aug 12, 2017 20:40
[2017-08-12 21:03] LABS: AUTOMATED NEUTROPHIL # 4.5 TH/MM3 (1.8-7.7); BASOPHIL # 0.1 TH/MM3 (0-0.2); EOSINOPHIL # 0.2 TH/MM3 (0-0.4); EOSINOPHIL % 2.3 % (0.0-4.0); LYMPH % 16.7 % (9.0-44.0); LYMPHOCYTE # 1.2 TH/MM3 (1.0-4.8); MEAN CELL VOLUME 89.7 FL (80.0-100.0); MEAN CORPUSCULAR HGB CONC 34.6 % (32.0-36.0); MEAN PLATELET VOLUME 9.6 FL (7.0-11.0); MONO % 18.6 % (0.0-8.0); MONOCYTE # 1.4 TH/MM3 (0-0.9); NEUT % 61.4 % (16.0-70.0); PLATELET COUNT 227 TH/MM3 (150-450); RED BLOOD COUNT 2.14 MIL/MM3 (4.00-5.30); RED CELL DISTRIBUTION WIDTH 24.1 % (11.6-17.2); RETIC # 248.7 MIL/L (20.0-150.0); RETIC % 11.6 % (0.4-3.0); WHITE BLOOD COUNT 7.4 TH/MM3 (4.0-11.0)
[2017-08-12 21:10] LABS: INTERNATIONAL NORMALIZED RATIO 1.7 RATIO
[2017-08-12 21:15] LABS: ALBUMIN 3.6 GM/DL (3.4-5.0); AST (GOT) 52 U/L (15-37); BICARBONATE 30.2 MEQ/L (21.0-32.0); BLOOD UREA NITROGEN 54 MG/DL (7-18); CALCIUM 8.5 MG/DL (8.5-10.1); CHLORIDE 95 MEQ/L (98-107); CREATININE 1.55 MG/DL (0.50-1.00); GLOMERULAR FILTRATION RATE 44 ML/MIN (>89); GLUCOSE,RANDOM 99 MG/DL (74-106); HEMOGLOBIN 6.6 GM/DL (11.6-15.3); MAGNESIUM 2.1 MG/DL (1.5-2.5); SODIUM (NA) 132 MEQ/L (136-145)
--- NOTE | 2017-08-12 21:15 | RADRPT ---
EXAM DATE/TIME: 08/12/2017 20:39 [facility] COMPARISON: CHEST SINGLE AP, July 25, 2017, 3:54. INDICATIONS : Short of breath. MEDICAL HISTORY : Sickle Cell disease. Chronic obstructive pulmonary disease. SURGICAL HISTORY : Infusaport. ENCOUNTER: Initial ACUITY: 1 day PAIN SCORE: 10/10 LOCATION: Left chest FINDINGS: The heart is significantly enlarged. Mild increased interstitial markings are noted consistent with p ossible vascular congestion or infiltrates. Left internal jugular [id number] has its tip in the lynch perior vena cava. CONCLUSION: Significantly enlarged heart. Mild increased interstitial markings suggesting mild pu lmonary vascular congestion or infiltrates. Tong Michael MD on August 12, 2017 at 21:13 Board Certified Radiologist. This report was verified electronically.
[2017-08-12 21:16] LABS: ALT (GPT) 15 U/L (10-53); HEMATOCRIT 19.2 % (35.0-46.0)
[2017-08-12 21:20] LABS: ALKALINE PHOSPHATASE 157 U/L (45-117); TOTAL BILIRUBIN ADULT 3.9 MG/DL (0.2-1.0); TOTAL PROTEIN 8.5 GM/DL (6.4-8.2); TROPONIN I LESS THAN 0.02 NG/ML (0.02-0.05)
[2017-08-12 21:20] LABS: AMORPHOUS SEDIMENT, URINE RARE; BILIRUBIN, URINE NEG (NEG); BLOOD, URINE TRACE (NEG); GLUCOSE,URINE NEG (NEG); HYALINE CAST, URINE 12 /lpf (RARE); KETONE, URINE NEG (NEG); MUCUS URINE FEW /lpf (OCC); NITRITE,URINE NEG (NEG); SQUAMOUS EPITHELIAL CELL URINE <1 /hpf (0-5); URINE LEUKOCYTE ESTERASE NEG (NEG)
[2017-08-12 21:21] LABS: URINE COLOR RED (YELLW/STRAW)
[2017-08-12] MEDS ORDERED: FUROSEMIDE 40 MG/4 ML VIAL IV PUSH ONE (21:30)
[2017-08-12] MEDS ORDERED: SODIUM CHLOR 0.9% 250 ML INJ 250 ML IV ONE (21:30)
[2017-08-12 22:23] LABS: CORRECTED NUCLEATED RBC 2 /100 WBC (0-0); LYMPHOCYTES 14 % (9-44); MONOCYTES 8 % (0-8); NEUTROPHIL # MANUAL DIFF 5.6 TH/MM3 (1.8-7.7); NUCLEATED RED BLOOD CELL 2 (0-0); POLYS (SEG NEUTROPHILS) 76 % (16-70); SICKLE CELLS 1+ (NORMAL)
[2017-08-12 22:24] LABS: TARGET CELLS 1+ (NORMAL)
[2017-08-12 22:25] LABS: KERATOCYTES OCC (NORMAL)
[2017-08-12 22:26] LABS: HOWELL-JOLLY BODIES PRESENT (NONE SEEN)
--- NOTE | 2017-08-12 23:26 | RADRPT ---
EXAM DATE/TIME: 08/12/2017 21:57 [facility] COMPARISON: No previous studies available for comparison. INDICATIONS : Bilateral leg pain and swelling. MEDICAL HISTORY : Congestive heart failure. Sickle Cell disease. Depression. Schizophrenia. Blood transfusions. Cdiff. SURGICAL HISTORY : Cholecystectomy. ENCOUNTER: Initial ACUITY: 1 day PAIN SCORE: 10/10 LOCATION: Bilateral leg. TECHNIQUE: Venous ultrasound of the left and right leg was performed from the inguinal ligament to the proximal calf. Real-time, color Doppler and spectral tracing, compression and augmentation techniques were us ed. FINDINGS: RIGHT LEG: There is normal compressibility of the deep venous system from the inguinal region to the proximal ca lf. No echogenic clot is seen in the lumen of the common femoral, femoral, popliteal, and posterior tibial veins. There is a normal response of the venous system to proximal and distal augmentation an d respiration. LEFT LEG: There is normal compressibility of the deep venous system from the inguinal region to the proximal ca lf. No echogenic clot is seen in the lumen of the common femoral, femoral, popliteal, and posterior tibial veins. There is a normal response of the venous system to proximal and distal augmentation an d respiration. CONCLUSION: 1. The study is negative for deep venous thrombosis bilateral lower extremity. 2. Smooth margin, non-shadowing hypoechoic solid lesion in the left iliac region measuring 3.0 x 2.7 x 1.9 cm, of uncertain significance, possibly an enlarged lymph node. Juan M Prajapati MD on August 12, 2017 at 23:23 Board Certified Radiologist. This report was verified electronically.
--- NOTE | 2017-08-12 23:33 | HHI.HP ---
[facility] Non[facility]Staff Admission Diagnosis symptomatic anemia, CHF exacerbation Diagnoses: Chief Complaint: Leg pain, shortness of breath Travel History International Travel<30 Days: No Contact w/Intl Traveler <30 Da: No Traveled to Known Affected Are: No History of Present Illness 42-year-old female with a medical history significant for sickle cell anemia, CHF, history of DVT, schizophrenia presented to the hospital with complaint of bilateral leg pain and shortness of breath. The patient was recently discharged from the hospital on 07/29/17 after she was admitted for sepsis, CHF. She was discharged home and returned today due to persistent leg pain and shortness of breath. Workup in the emergency room revealed CHF and anemia with a hemoglobin of 6.6. The patient will need transfusion and further stabilization. Therefore she is being admitted for further workup and treatment. She is a very poor historian and falls asleep mid conversation quite often. Some of the history obtained from the EMR. Review of Systems ROS Limitations: Poor Historian Constitutional: DENIES: Fever, Weight loss Respiratory: COMPLAINS OF: Shortness of breath Gastrointestinal: DENIES: Nausea, Vomiting Genitourinary: DENIES: Urinary frequency Musculoskeletal: COMPLAINS OF: Joint pain, Muscle aches, Stiffness Except as stated in HPI: all other systems reviewed are Neg Past Family Social History Past Medical History Sickle cell anemia Sleep apnea CHF Schizophrenia Past Surgical History IVC filter Port placement Cholecystectomy Reported Medications Reported Meds & Active Scripts Active Levaquin (Levofloxacin) 750 Mg Tablet 750 Mg PO DAILY 7 Days Reported Fentanyl Patch 72 HR (Fentanyl) 50 Mcg/Hr Patch 50 Mcg T-DERMAL Q72H Remove old patch when new one placed. [place] (Hydrocodone-Acetaminophen) 10-325 Mg Tab 1 Tab PO QID PRN Hydrea (Hydroxyurea) 500 Mg Cap 1,000 Mg PO DAILY Xarelto (Rivaroxaban) 20 Mg Tab 20 Mg PO DAILY Lasix (Furosemide) 20 Mg Tab 20 Mg PO DAILY Jadenu (Deferasirox) 360 Mg Tab 1,080 Mg PO DAILY Folic Acid 0.4 Mg Tab 1 Mg PO DAILY Benztropine (Benztropine Mesylate) 0.5 Mg Tab 1 Mg PO BID Citalopram (Citalopram Hydrobromide) 20 Mg Tab 20 Mg PO DAILY Paliperidone ER 3 Mg Tab 3 Mg PO DAILY Allergies: Coded Allergies: butorphanol (Unverified Allergy, Severe, 08/12/17) chlorpromazine (Unverified Allergy, Severe, 08/12/17) hydromorphone (Unverified Allergy, Severe, 08/12/17) ketorolac (Unverified Allergy, Severe, 08/12/17) nalbuphine (Unverified Allergy, Severe, 08/12/17) penicillin G (Unverified Allergy, Severe, 08/12/17) Social History No tobacco, alcohol, or illicit drug use. Physical Exam Vital Signs Vital Signs Date Time Temp Pulse Resp B/P (MAP) Pulse Ox O2 Delivery O2 Flow Rate FiO2 08/12/17 23:31 97.9 72 14 99/57 97 08/12/17 23:16 98.0 99 14 108/52 98 08/12/17 23:03 98.7 72 16 100/53 98 08/12/17 22:15 79 16 101/58 (72) 92 Nasal Cannula 3.00 08/12/17 21:13 82 18 101/53 (69) 94 Nasal Cannula 3.00 08/12/17 20:53 96 Nasal Cannula 3.00 08/12/17 20:12 83 14 08/12/17 20:09 98 Nasal Cannula 2.00 08/12/17 20:08 98.3 83 14 128/56 (80) 90 Physical Exam GENERAL: Chronically ill-appearing female. Falls asleep mid conversation. SKIN: Skin is dry and scaly bilateral lower extremity HEAD: Atraumatic. Normocephalic. No temporal or scalp tenderness. EYES: Pupils equal round and reactive. Extraocular motions intact. No scleral icterus. No injection or drainage. ENT: Nose without bleeding, purulent drainage or septal hematoma. Throat without erythema, tonsillar hypertrophy or exudate. Uvula midline. Airway patent. NECK: Trachea midline. No JVD or lymphadenopathy. Supple, nontender, no meningeal signs. CARDIOVASCULAR: Regular rate and rhythm without murmurs, gallops, or rubs. RESPIRATORY: Faint bilateral basilar crackles. Diminished breath sounds throughout. No rhonchi. GASTROINTESTINAL: Abdomen soft, non-tender, nondistended. No hepato-splenomegaly , or palpable masses. No guarding. MUSCULOSKELETAL: 2+ bilateral lower extremity edema. Right leg worse compared to left. NEUROLOGICAL: Awake but falls asleep mid conversation. Normal speech. Laboratory Laboratory Tests Test 08/12/17 20:43 08/12/17 20:55 White Blood Count 7.4 Red Blood Count 2.14 Hemoglobin 6.6 Hematocrit 19.2 Mean Corpuscular Volume 89.7 Mean Corpuscular Hemoglobin 31.0 Mean Corpuscular Hemoglobin Concent 34.6 Red Cell Distribution Width 24.1 Platelet Count 227 Mean Platelet Volume 9.6 Neutrophils (%) (Auto) 61.4 Lymphocytes (%) (Auto) 16.7 Monocytes (%) (Auto) 18.6 Eosinophils (%) (Auto) 2.3 Basophils (%) (Auto) 1.0 Neutrophils # (Auto) 4.5 Lymphocytes # (Auto) 1.2 Monocytes # (Auto) 1.4 Eosinophils # (Auto) 0.2 Basophils # (Auto) 0.1 CBC Comment AUTO DIFF Differential Total Cells Counted 100 Neutrophils % (Manual) 76 Lymphocytes % 14 Monocytes % 8 Eosinophils % 2 Neutrophils # (Manual) 5.6 Nucleated Red Blood Cells 2 Differential Comment FINAL DIFF MANUAL Platelet Estimate NORMAL Platelet Morphology Comment ENLARGED Sickle Cells 1+ Target Cells 1+ [place] Bodies PRESENT Keratocytes OCC Reticulocyte Count 11.6 Absolute Reticulocyte Count 248.7 Prothrombin Time 17.0 Prothromb Time International Ratio 1.7 Activated Partial Thromboplast Time 52.3 Blood Urea Nitrogen 54 Creatinine 1.55 Random Glucose 99 Total Protein 8.5 Albumin 3.6 Calcium Level 8.5 Magnesium Level 2.1 Alkaline Phosphatase 157 Aspartate Amino Transf (AST/SGOT) 52 Alanine Aminotransferase (ALT/SGPT) 15 Total Bilirubin 3.9 Sodium Level 132 Potassium Level 4.9 Chloride Level 95 Carbon Dioxide Level 30.2 Anion Gap 7 Estimat Glomerular Filtration Rate 44 Total Creatine Kinase 11 Troponin I LESS THAN 0.02 B-Type Natriuretic Peptide 517 Urine Color RED Urine Turbidity CLEAR Urine pH 5.0 Urine Specific [place] 1.012 Urine Protein NEG Urine Glucose (UA) NEG Urine Ketones NEG Urine Occult Blood TRACE Urine Nitrite NEG Urine Bilirubin NEG Urine Urobilinogen LESS THAN 2.0 Urine Leukocyte Esterase NEG Urine WBC 1 Urine Squamous Epithelial Cells <1 Urine Amorphous Sediment RARE Urine Hyaline Casts 12 Urine Mucus FEW Microscopic Urinalysis Comment CATH-CULT NOT IND Result Diagram: 08/12/17204208/12/172042 Imaging Last Impressions Chest X-Ray 08/12/172027 Signed Impressions: Service Date/Time: August 20:39 - CONCLUSION: Significantly enlarged heart. Mild increased interstitial markings suggesting mild pulmonary vascular congestion or infiltrates. Tong Michael MD Lower Extremity Ultrasound 08/12/17 0000 Signed Impressions: Service Date/Time: August 21:57 - CONCLUSION: 1. The study is negative for deep venous thrombosis bilateral lower extremity. 2. Smooth margin , non-shadowing hypoechoic solid lesion in the left iliac region measuring 3.0 x 2.7 x 1.9 cm, of uncertain significance, possibly an enlarged lymph node. Juan M Prajapati MD Caprini VTE Risk Assessment Caprini VTE Risk Assessment: Mod/High Risk (score >= 2) Caprini Risk Assessment Model Point Value = 1 Point Value = 2 Point Value = 3 Point Value = 5 Age 41-60 Minor surgery BMI > 25 kg/m2 Swollen legs Varicose veins or History of unexplained or recurrent spontaneous Oral contraceptives or hormone replacement Sepsis (< 1 month) Serious lung disease, including pneumonia (< 1 month) Abnormal pulmonary function Acute myocardial infarction Congestive heart failure (< 1 month) History of inflammatory bowel disease Medical patient at bed rest Age 61-74 Arthroscopic surgery Major open surgery (> 45 min) Laparoscopic surgery (> 45 min) Malignancy Confined to bed (> 72 hours) Immobilizing plaster cast Central venous access Age >= 75 History of VTE Family history of VTE Factor V Leiden Prothrombin [id number] Lupus anticoagulant Anticardiolipin antibodies Elevated serum homocysteine Heparin-induced thrombocytopenia Other congenital or acquired thrombophilia Stroke (< 1 month) Elective arthroplasty Hip, pelvis, or leg fracture Acute spinal cord injury (< 1 month) Prophylaxis Regimen Total Risk Factor Score Risk Level Prophylaxis Regimen 0-1 Low Early ambulation 2 Moderate Order ONE of the following: *Sequential Compression Device (SCD) *Heparin 5000 units SQ BID 3-4 Higher Order ONE of the following medications: *Heparin 5000 units SQ TID *Enoxaparin/Lovenox 40 mg SQ daily (WT < 150 kg, CrCl > 30 mL/min) *Enoxaparin/Lovenox 30 mg SQ daily (WT < 150 kg, CrCl > 10-29 mL/min) *Enoxaparin/Lovenox 30 mg SQ BID (WT < 150 kg, CrCl > 30 mL/min) AND/OR *Sequential Compression Device (SCD) 5 or more Highest Order ONE of the following medications: *Heparin 5000 units SQ TID (Preferred with Epidurals) *Enoxaparin/Lovenox 40 mg SQ daily (WT < 150 kg, CrCl > 30 mL/min) *Enoxaparin/Lovenox 30 mg SQ daily (WT < 150 kg, CrCl > 10-29 mL/min) *Enoxaparin/Lovenox 30 mg SQ BID (WT < 150 kg, CrCl > 30 mL/min) AND *Sequential Compression Device (SCD) Assessment and Plan Problem List: (1) CHF exacerbation ICD Code: I50.9 - Heart failure, unspecified Status: Acute Plan: Acute on chronic diastolic CHF. Volume overload. Unclear about her compliance. Was seen by cardiology during the last admission a couple of weeks ago - Lasix IV 40 mg twice daily - Monitor I/O - Fluid restriction - consider POLI inhibitor and beta-delilah (2) Symptomatic anemia ICD Code: D64.9 - Anemia, unspecified Status: Chronic Plan: Secondary to sickle cell. No evidence of active bleeding. Given CHF, transfuse 2 units of PRBC. Continue to monitor (3) Right leg DVT ICD Code: I82.401 - Acute embolism and thrombosis of unspecified deep veins of right lower extremity Plan: History of right lower extremity DVT. On Xarelto. Repeat ultrasound today did not show any DVT. (4) Obstructive sleep apnea hypopnea, severe ICD Code: G47.33 - Obstructive sleep apnea (adult) (pediatric) Status: Chronic Plan: Patient encouraged to use CPAP (5) Sickle cell anemia ICD Code: D57.1 - Sickle-cell disease without crisis Status: Chronic (6) Schizophrenia ICD Code: F20.9 - Schizophrenia, unspecified Status: Chronic Plan: Continue home medication Discussed Condition With ED staff Physician Certification 2 Midnight Certification Type: Admission for Inpatient Services Order for Inpatient Services The services are ordered in accordance with Medicare regulations or non- Medicare payer requirements, as applicable. In the case of services not specified as inpatient-only, they are appropriately provided as inpatient services in accordance with the 2-midnight benchmark. Estimated LOS (days): 3 days is the estimated time the patient will need to remain in the hospital, assuming treatment plan goals are met and no additional complications. Post-Hospital Plan: Not yet determined Problem Qualifiers (1) CHF exacerbation: Qualified Codes: I50.9 - Heart failure, unspecified Marialuisa Cabrera MD Aug 12, 2017 23:33
[2017-08-12] MEDS ORDERED: BISACODYL 10 MG SUPP RECTAL PRN (23:45)
[2017-08-12] MEDS ORDERED: NALOXONE HCL 0.4 MG/ML AMP IV PUSH PRN (23:45)
[2017-08-12] MEDS ORDERED: ACETAMINOPHEN 325 MG TAB PO PRN (23:45)
[2017-08-12] MEDS ORDERED: SENNOSIDES 8.6 MG TAB PO PRN (23:45)
[2017-08-12] MEDS ORDERED: LACTULOSE SYRUP 20 GM/30 ML CUP PO PRN (23:45)
[2017-08-12] MEDS ORDERED: ONDANSETRON HCL 4 MG/2 ML VIAL IVP PRN (23:45)
[2017-08-12] MEDS ORDERED: MAGNESIUM HYDROXIDE SUSP 30 ML CUP PO PRN (23:45)
[2017-08-13] VITALS (20 sets, daily range): BP systolic 95–123; BP diastolic 53–75; PULSE 81–94; RESP 14–22; TEMP 96.3–99.5; O2SAT 91–99
[2017-08-13] MEDS: ACETAMINOPHEN/HYDROcodone 325 MG/5 MG TAB PO PRN ×5 (04:51→22:02)
[2017-08-13 08:14] LABS: BASOPHIL # 0.1 TH/MM3 (0-0.2); BASOPHIL % 1.9 % (0.0-2.0); EOSINOPHIL # 0.2 TH/MM3 (0-0.4); EOSINOPHIL % 2.6 % (0.0-4.0); HEMOGLOBIN 7.3 GM/DL (11.6-15.3); LYMPH % 14.6 % (9.0-44.0); LYMPHOCYTE # 1.1 TH/MM3 (1.0-4.8); MEAN CELL VOLUME 87.3 FL (80.0-100.0); MEAN CORPUSCULAR HEMOGLOBIN 30.9 PG (27.0-34.0); MEAN CORPUSCULAR HGB CONC 35.4 % (32.0-36.0); MONO % 15.8 % (0.0-8.0); MONOCYTE # 1.2 TH/MM3 (0-0.9); NEUT % 65.1 % (16.0-70.0); PLATELET COUNT 237 TH/MM3 (150-450); RED BLOOD COUNT 2.35 MIL/MM3 (4.00-5.30); RED CELL DISTRIBUTION WIDTH 19.2 % (11.6-17.2); WHITE BLOOD COUNT 7.7 TH/MM3 (4.0-11.0)
[2017-08-13 08:17] LABS: BICARBONATE 27.3 MEQ/L (21.0-32.0); CALCIUM 8.7 MG/DL (8.5-10.1); CREATININE 1.49 MG/DL (0.50-1.00)
[2017-08-13 08:22] LABS: HEMATOCRIT 20.5 % (35.0-46.0)
--- NOTE | 2017-08-13 09:03 | EKG ---
Date Performed: 08/12/2017 Time Performed: 20:47:17 PTAGE: 42 years EKG: Sinus rhythm LOW QRS VOLTAGE ABNORMAL ECG PREVIOUS TRACING : 07/18/2017 21.56 Since the prior tracing, there has been no significant barboza DOCTOR: Francine Salas Interpretating Date/Time 08/13/2017 09:00:53
[2017-08-13 09:27] LABS: BASOPHILS 4 % (0-2); CORRECTED NUCLEATED RBC 2 /100 WBC (0-0); HOWELL-JOLLY BODIES PRESENT (NONE SEEN); LYMPHOCYTES 15 % (9-44); MONOCYTES 17 % (0-8); NEUTROPHIL # MANUAL DIFF 4.9 TH/MM3 (1.8-7.7); NUCLEATED RED BLOOD CELL 2 (0-0); POLYS (SEG NEUTROPHILS) 63 % (16-70)
[2017-08-13 09:28] LABS: TARGET CELLS 1+ (NORMAL)
[2017-08-13 09:29] LABS: OVALOCYTES 1+ (NORMAL)
[2017-08-13] MEDS: CITALOPRAM HYDROBROMIDE 20 MG TAB PO SCH (10:14)
[2017-08-13] MEDS: FUROSEMIDE 40 MG/4 ML VIAL IV PUSH SCH ×2 (10:14→16:59)
[2017-08-13] MEDS: SODIUM CHLORIDE 0.9% FLUSH 10 ML FLUSH IV FLUSH SCH ×2 (10:15→21:00)
[2017-08-13] MEDS: HYDROXYUREA 500 MG CAP PO SCH (10:20)
[2017-08-13] MEDS: BENZTROPINE MESYLATE 1 MG TAB PO SCH ×2 (10:39→22:02)
[2017-08-13] MEDS: RIVAROXABAN 20 MG TAB PO SCH (10:39)
[2017-08-13] MEDS: PALIPERIDONE ER 3 MG TAB PO SCH (10:39)
--- NOTE | 2017-08-13 14:42 | HHI.PR ---
Subjective Remarks On exam earlier patient was difficult to awaken. Currently she is awake and requesting IV narcotics option for pain control. Objective Vitals Vital Signs Date Time Temp Pulse Resp B/P (MAP) Pulse Ox O2 Delivery O2 Flow Rate FiO2 08/13/17 14:03 86 08/13/17 13:10 88 08/13/17 09:55 89 08/13/17 08:00 98.3 88 22 115/59 (77) 92 08/13/17 07:05 94 08/13/17 05:11 98.1 82 20 98/69 92 08/13/17 04:31 83 08/13/17 02:54 97.0 86 20 104/67 95 08/13/17 02:34 98.1 86 18 101/64 95 08/13/17 01:20 98.2 85 18 105/64 99 08/13/17 00:09 98.2 81 22 95/61 (72) 93 08/13/17 00:02 98.2 85 14 109/53 97 08/12/17 23:52 08/12/17 23:45 98.1 72 16 102/51 97 08/12/17 23:31 97.9 72 14 99/57 97 08/12/17 23:16 98.0 99 14 108/52 98 08/12/17 23:03 98.7 72 16 100/53 98 08/12/17 22:15 79 16 101/58 (72) 92 Nasal Cannula 3.00 08/12/17 21:13 82 18 101/53 (69) 94 Nasal Cannula 3.00 08/12/17 20:53 96 Nasal Cannula 3.00 08/12/17 20:12 83 14 08/12/17 20:09 98 Nasal Cannula 2.00 08/12/17 20:08 98.3 83 14 128/56 (80) 90 I/O 08/12/17 08/12/17 08/12/17 08/13/17 08/13/17 08/13/17 07:00 15:00 23:00 07:00 15:00 23:00 Intake Total 1050 ml 360 ml Output Total 450 ml Balance -450 ml 1050 ml 360 ml Intake Oral 360 ml IV Total 250 ml Packed Cells 400 ml Blood Product IV Normal Saline Flush 400 ml Output Urine Total 450 ml # Voids 1 # Bowel Movements 0 Result Diagram: 3/2/18 0740 08/13/17 0740 Objective Remarks GENERAL: Obese, short stature SKIN: Warm and dry. HEAD: Normocephalic. EYES: No scleral icterus. No injection or drainage. NECK: Supple, trachea midline. No JVD or lymphadenopathy. CARDIOVASCULAR: Regular rate and rhythm without murmurs, gallops, or rubs. RESPIRATORY: Scattered congestive sounds, rhonchi, no wheezing. No accessory muscle use. GASTROINTESTINAL: Abdomen soft, non-tender, nondistended. EXTREMITIES: No cyanosis, or edema. NEUROLOGICAL: Awake, alert, and oriented x 3. Non-focal. A/P Problem List: (1) CHF exacerbation ICD Code: I50.9 - Heart failure, unspecified Status: Acute (2) Symptomatic anemia ICD Code: D64.9 - Anemia, unspecified Status: Chronic (3) Right leg DVT ICD Code: I82.401 - Acute embolism and thrombosis of unspecified deep veins of right lower extremity (4) Obstructive sleep apnea hypopnea, severe ICD Code: G47.33 - Obstructive sleep apnea (adult) (pediatric) Status: Chronic (5) Sickle cell anemia ICD Code: D57.1 - Sickle-cell disease without crisis Status: Chronic (6) Schizophrenia ICD Code: F20.9 - Schizophrenia, unspecified Status: Chronic Assessment and Plan CHF exacerbation Elevated BNP on arrival, patient is poorly compliant with medical treatments at home Continue IV Lasix at 40 mg twice daily Monitor I's and O's Fluid restriction Symptomatic anemia Likely secondary to sickle cell syndrome, no source of bleeding Status post transfusion of 2 units of PRBCs Follow-up CBC in the a.m. to monitor hemoglobin level Continue oxygen, IV fluids held due to CHF exacerbation h/o RLE DVT Repeat ultrasound was negative for DVT Continue treatment dose of Xarelto due to recent history Obstructive sleep apnea Patient is poorly compliant with treatment at home which leaves hypoxic episodes inducing sickle cell crisis Encourage CPAP use h/o schizophrenia Patient is not currently psychotic, continue home meds DVT prophylaxis On Xarelto for DVT treatment Problem Qualifiers (1) CHF exacerbation: Qualified Codes: I50.9 - Heart failure, unspecified Didier Gibbs MD Aug 13, 2017 14:42
[2017-08-13] MEDS: MORPHINE SULFATE 2 MG/ML INJ IV PUSH PRN ×2 (15:20→20:59)
[2017-08-13] MEDS: SODIUM CHLORIDE 0.9% FLUSH 10 ML FLUSH IV FLUSH PRN (16:59)
[2017-08-14] VITALS (8 sets, daily range): BP systolic 100–157; BP diastolic 59–96; PULSE 84–98; RESP 17–22; TEMP 98–99.8; O2SAT 91–94
[2017-08-14] MEDS: MORPHINE SULFATE 2 MG/ML INJ IV PUSH PRN ×2 (01:04→05:27)
[2017-08-14 07:16] LABS: AUTOMATED NEUTROPHIL # 4.5 TH/MM3 (1.8-7.7); BASOPHIL # 0.1 TH/MM3 (0-0.2); BASOPHIL % 1.6 % (0.0-2.0); EOSINOPHIL # 0.2 TH/MM3 (0-0.4); EOSINOPHIL % 2.2 % (0.0-4.0); LYMPHOCYTE # 1.3 TH/MM3 (1.0-4.8); MEAN CELL VOLUME 88.1 FL (80.0-100.0); MEAN CORPUSCULAR HEMOGLOBIN 30.9 PG (27.0-34.0); MEAN CORPUSCULAR HGB CONC 35.1 % (32.0-36.0); MEAN PLATELET VOLUME 9.7 FL (7.0-11.0); MONOCYTE # 1.1 TH/MM3 (0-0.9); NEUT % 63.2 % (16.0-70.0); PLATELET COUNT 199 TH/MM3 (150-450); RED BLOOD COUNT 2.28 MIL/MM3 (4.00-5.30); RED CELL DISTRIBUTION WIDTH 19.5 % (11.6-17.2); WHITE BLOOD COUNT 7.1 TH/MM3 (4.0-11.0)
[2017-08-14 07:28] LABS: HEMATOCRIT 20.1 % (35.0-46.0); HEMOGLOBIN 7.1 GM/DL (11.6-15.3)
--- NOTE | 2017-08-14 08:19 | HHI.PR ---
Subjective Remarks Pt seen and examined. AFVSS. No acute events overnight. Reports bilateral leg pain 10/10, feels like she is in sickle cell crisis. Breathing has improved. Denies CP or SOB. Tolerating PO and ate breakfast without issues. Objective Vital Signs Date Time Temp Pulse Resp B/P (MAP) Pulse Ox O2 Delivery O2 Flow Rate FiO2 08/14/17 05:30 99.3 87 22 101/68 (79) 91 08/13/17 23:30 99.5 88 20 116/68 (84) 96 08/13/17 20:00 98.9 86 20 107/68 (81) 95 08/13/17 19:00 85 08/13/17 18:30 87 08/13/17 17:57 90 08/13/17 16:24 83 08/13/17 16:00 96.3 86 22 123/75 (91) 92 08/13/17 14:03 86 08/13/17 13:10 88 08/13/17 12:00 97.2 82 21 116/70 (85) 91 08/13/17 09:55 89 I/O 08/13/17 08/13/17 08/13/17 08/14/17 08/14/17 08/14/17 07:00 15:00 23:00 07:00 15:00 23:00 Intake Total 1050 ml 960 ml 480 ml Balance 1050 ml 960 ml 480 ml Intake Oral 960 ml 480 ml IV Total 250 ml Packed Cells 400 ml Blood Product IV Normal Saline Flush 400 ml # Voids 4 5 # Bowel Movements 1 1 Result Diagram: 08/14/17 0635 08/13/17 0740 Imaging Chest X-Ray 08/12/172027 Signed Impressions: Service Date/Time: August 20:39 - CONCLUSION: Significantly enlarged heart. Mild increased interstitial markings suggesting mild pulmonary vascular congestion or infiltrates. Tong Michael MD Lower Extremity Ultrasound 08/12/17 0000 Signed Impressions: Service Date/Time: August 21:57 - CONCLUSION: 1. The study is negative for deep venous thrombosis bilateral lower extremity. 2. Smooth margin , non-shadowing hypoechoic solid lesion in the left iliac region measuring 3.0 x 2.7 x 1.9 cm, of uncertain significance, possibly an enlarged lymph node. Juan M Prajapati MD Objective Remarks GENERAL: Obese female laying in bed in obvious discomfort. SKIN: Warm and dry. HEENT: Pupils equal and round. MMM. NECK: Supple no tender LAD or JVD. HEART: RRR no m/r/g. LUNGS: Bibasilar crackles. Coughing throughout exam. ABDOMEN: Soft, NT, ND. EXTREMITIES: Bilateral LE edema. R>>>L. Both calves are warm and firm. Diffuse LE TTP. NEURO: Awake and alert. PSYCH: Appropriate mood and affect. No visual or auditory hallucinations. A/P Problem List: (1) CHF exacerbation ICD Code: I50.9 - Heart failure, unspecified Status: Acute (2) Symptomatic anemia ICD Code: D64.9 - Anemia, unspecified Status: Chronic (3) Obstructive sleep apnea hypopnea, severe ICD Code: G47.33 - Obstructive sleep apnea (adult) (pediatric) Status: Chronic (4) Sickle cell anemia ICD Code: D57.1 - Sickle-cell disease without crisis Status: Chronic (5) Schizophrenia ICD Code: F20.9 - Schizophrenia, unspecified Status: Chronic Assessment and Plan 42 YOAAF with history of sickle cell anemia, CHF, and AMBAR admitted for symptomatic anemia and CHF exacerbation. CHF exacerbation Elevated BNP on arrival, patient is poorly compliant with medical treatments at home Continue IV Lasix at 40 mg twice daily Monitor I's and O's Fluid restriction Symptomatic anemia Secondary to sickle cell anemia, no obvious bleeding and hemodynamically stable Status post transfusion of 2 units of PRBCs H&H 7.1/20.1 this morning, stable from yesterday Continue oxygen, IV fluids held due to CHF exacerbation Pain crisis 10/10 pain in B/L LE Neg for DVT Change [place] to Percocet Morphine PRN breakthrough h/o RLE DVT Repeat ultrasound was negative for DVT Continue treatment dose of Xarelto due to recent history Obstructive sleep apnea Patient is poorly compliant with treatment at home which leaves hypoxic episodes inducing sickle cell crisis Encourage CPAP use h/o schizophrenia Stable Continue home meds DVT prophylaxis On Xarelto for DVT treatment Problem Qualifiers (1) CHF exacerbation: Qualified Codes: I50.9 - Heart failure, unspecified Tyra Hickman MD Aug 14, 2017 08:19
[2017-08-14 09:02] LABS: TARGET CELLS 1+ (NORMAL)
[2017-08-14 09:03] LABS: ACANTHOCYTES OCC (NORMAL); HOWELL-JOLLY BODIES PRESENT (NONE SEEN); SICKLE CELLS 1+ (NORMAL)
[2017-08-14] MEDS: BENZTROPINE MESYLATE 1 MG TAB PO SCH ×2 (10:24→21:00)
[2017-08-14] MEDS: PALIPERIDONE ER 3 MG TAB PO SCH (10:24)
[2017-08-14] MEDS: CITALOPRAM HYDROBROMIDE 20 MG TAB PO SCH (10:24)
[2017-08-14] MEDS: RIVAROXABAN 20 MG TAB PO SCH (10:24)
[2017-08-14] MEDS: FUROSEMIDE 40 MG/4 ML VIAL IV PUSH SCH ×2 (10:25→18:00)
[2017-08-14] MEDS: MORPHINE SULFATE 4 MG/ML INJ IV PUSH PRN ×4 (10:26→22:13)
[2017-08-14] MEDS: SODIUM CHLORIDE 0.9% FLUSH 10 ML FLUSH IV FLUSH SCH ×2 (10:27→22:13)
[2017-08-14] MEDS: HYDROXYUREA 500 MG CAP PO SCH (10:37)
[2017-08-14] MEDS: SODIUM CHLORIDE 0.9% FLUSH 10 ML FLUSH IV FLUSH PRN (14:38)
[2017-08-15] VITALS (7 sets, daily range): BP systolic 94–107; BP diastolic 58–73; PULSE 75–94; RESP 15–17; TEMP 97.3–99.3; O2SAT 91–95
[2017-08-15] MEDS: MORPHINE SULFATE 4 MG/ML INJ IV PUSH PRN ×3 (01:13→09:12)
[2017-08-15 07:22] LABS: AUTOMATED NEUTROPHIL # 3.5 TH/MM3 (1.8-7.7); BASOPHIL # 0.1 TH/MM3 (0-0.2); BASOPHIL % 1.2 % (0.0-2.0); EOSINOPHIL # 0.2 TH/MM3 (0-0.4); EOSINOPHIL % 2.7 % (0.0-4.0); HEMATOCRIT 21.3 % (35.0-46.0); HEMOGLOBIN 7.5 GM/DL (11.6-15.3); LYMPH % 26.7 % (9.0-44.0); LYMPHOCYTE # 1.9 TH/MM3 (1.0-4.8); MEAN CELL VOLUME 88.4 FL (80.0-100.0); MEAN CORPUSCULAR HGB CONC 35.1 % (32.0-36.0); MEAN PLATELET VOLUME 9.5 FL (7.0-11.0); MONO % 19.5 % (0.0-8.0); MONOCYTE # 1.4 TH/MM3 (0-0.9); NEUT % 49.9 % (16.0-70.0); PLATELET COUNT 186 TH/MM3 (150-450); RED BLOOD COUNT 2.41 MIL/MM3 (4.00-5.30); RED CELL DISTRIBUTION WIDTH 19.2 % (11.6-17.2); WHITE BLOOD COUNT 7.1 TH/MM3 (4.0-11.0)
[2017-08-15 08:06] LABS: BICARBONATE 32.4 MEQ/L (21.0-32.0); CALCIUM 8.4 MG/DL (8.5-10.1); CREATININE 0.76 MG/DL (0.50-1.00)
--- NOTE | 2017-08-15 08:53 | HHI.PR ---
Subjective Remarks Pt seen and examined. AFVSS. On 3L NC, normally 2L at home. Breathing has improved and she states she is almost at her baseline. Pain in LE still present but also improving and states the Percocet has helped her better than the [place]. Tolerating PO without N/V. Denies CP. Continues to have productive cough. Objective Vital Signs Date Time Temp Pulse Resp B/P (MAP) Pulse Ox O2 Delivery O2 Flow Rate FiO2 08/15/17 08:00 98.3 94 17 101/58 (72) 91 08/15/17 04:00 98.8 89 16 107/69 (82) 95 08/15/17 00:00 99.3 82 16 97/73 (81) 94 08/14/17 20:00 98 08/14/17 20:00 99.0 86 17 112/79 (90) 93 08/14/17 19:19 Nasal Cannula 3.00 08/14/17 16:00 98.0 84 18 100/59 (73) 93 08/14/17 12:38 90 08/14/17 12:00 99.8 87 17 108/68 (81) 94 I/O 08/14/17 08/14/17 08/14/17 08/15/17 08/15/17 08/15/17 07:00 15:00 23:00 07:00 15:00 23:00 Intake Total 480 ml 720 ml 1432 ml Balance 480 ml 720 ml 1432 ml Intake Oral 480 ml 720 ml 1402 ml IV Total 30 ml # Voids 5 3 2 # Bowel Movements 1 1 Result Diagram: 08/15/17 0710 08/15/17 0710 Objective Remarks GENERAL: Obese female laying in bed in NAD. SKIN: Warm and dry. HEENT: Pupils equal and round. MMM. NECK: Supple no tender LAD or JVD. HEART: RRR w/ 2/6 DONNA. LUNGS: Diffuse crackles throughout lung resendiz. ABDOMEN: Soft, NT, ND. EXTREMITIES: Bilateral LE edema. R>>>L. Both calves are warm and firm. NEURO: Awake and alert. PSYCH: Appropriate mood and affect. No visual or auditory hallucinations. A/P Problem List: (1) CHF exacerbation ICD Code: I50.9 - Heart failure, unspecified Status: Acute (2) Symptomatic anemia ICD Code: D64.9 - Anemia, unspecified Status: Chronic (3) Obstructive sleep apnea hypopnea, severe ICD Code: G47.33 - Obstructive sleep apnea (adult) (pediatric) Status: Chronic (4) Sickle cell anemia ICD Code: D57.1 - Sickle-cell disease without crisis Status: Chronic (5) Schizophrenia ICD Code: F20.9 - Schizophrenia, unspecified Status: Chronic Assessment and Plan 42 YOAAF with history of sickle cell anemia, CHF, and AMBAR admitted for symptomatic anemia and CHF exacerbation. CHF exacerbation Elevated BNP on arrival, patient is poorly compliant with medical treatments at home Symptoms are improving PO Lasix challenge Monitor I's and O's Per EMR, patient went from 92 kg yesterday to 107.6 kg today (?error) Fluid and sodium restriction Symptomatic anemia Secondary to sickle cell anemia, no obvious bleeding and hemodynamically stable Status post transfusion of 2 units of PRBCs H&H stable with Hb ~7.1-7.5 Supplemental O2 Monitor CBC Pain crisis Improving pain in B/L LE Neg for DVT Continue Percocet Morphine PRN breakthrough h/o RLE DVT Repeat ultrasound was negative for DVT Continue treatment dose of Xarelto due to recent history Obstructive sleep apnea Patient is poorly compliant with treatment at home which leaves hypoxic episodes inducing sickle cell crisis On continuous O2 at home Would benefit from CPAP as outpatient h/o schizophrenia Stable Continue home meds DVT prophylaxis On Xarelto for DVT treatment Discharge Planning Possibly tomorrow if remains clinically stable on PO Lasix challenge Problem Qualifiers (1) CHF exacerbation: Qualified Codes: I50.9 - Heart failure, unspecified Tyra Hickman MD Aug 15, 2017 08:53
[2017-08-15] MEDS: SODIUM CHLORIDE 0.9% FLUSH 10 ML FLUSH IV FLUSH SCH ×2 (09:00→21:45)
[2017-08-15] MEDS: BENZTROPINE MESYLATE 1 MG TAB PO SCH ×2 (10:54→21:00)
[2017-08-15] MEDS: FUROSEMIDE 40 MG TAB PO SCH ×2 (10:54→18:03)
[2017-08-15] MEDS: PALIPERIDONE ER 3 MG TAB PO SCH (10:55)
[2017-08-15] MEDS: RIVAROXABAN 20 MG TAB PO SCH (10:55)
[2017-08-15] MEDS: CITALOPRAM HYDROBROMIDE 20 MG TAB PO SCH (10:55)
[2017-08-15] MEDS: HYDROXYUREA 500 MG CAP PO SCH (10:56)
[2017-08-15] MEDS: oxyCODONE/ACETAMINOPHEN 5 MG/325 MG TAB PO PRN ×3 (13:10→23:43)
[2017-08-16] VITALS (7 sets, daily range): BP systolic 91–168; BP diastolic 48–73; PULSE 73–84; RESP 15–19; TEMP 97.1–98.9; O2SAT 92–99
[2017-08-16] MEDS: oxyCODONE/ACETAMINOPHEN 5 MG/325 MG TAB PO PRN ×3 (05:43→18:39)
[2017-08-16 06:22] LABS: AUTOMATED NEUTROPHIL # 4.7 TH/MM3 (1.8-7.7); BASOPHIL # 0.1 TH/MM3 (0-0.2); BASOPHIL % 1.3 % (0.0-2.0); EOSINOPHIL # 0.3 TH/MM3 (0-0.4); EOSINOPHIL % 2.9 % (0.0-4.0); HEMATOCRIT 21.6 % (35.0-46.0); HEMOGLOBIN 7.5 GM/DL (11.6-15.3); LYMPH % 25.6 % (9.0-44.0); LYMPHOCYTE # 2.2 TH/MM3 (1.0-4.8); MEAN CELL VOLUME 88.7 FL (80.0-100.0); MEAN CORPUSCULAR HEMOGLOBIN 30.9 PG (27.0-34.0); MEAN CORPUSCULAR HGB CONC 34.9 % (32.0-36.0); MEAN PLATELET VOLUME 9.8 FL (7.0-11.0); MONO % 15.8 % (0.0-8.0); MONOCYTE # 1.4 TH/MM3 (0-0.9); NEUT % 54.4 % (16.0-70.0); PLATELET COUNT 182 TH/MM3 (150-450); RED BLOOD COUNT 2.44 MIL/MM3 (4.00-5.30); RED CELL DISTRIBUTION WIDTH 20.2 % (11.6-17.2); WHITE BLOOD COUNT 8.7 TH/MM3 (4.0-11.0)
[2017-08-16 06:54] LABS: BICARBONATE 33.2 MEQ/L (21.0-32.0); CALCIUM 8.8 MG/DL (8.5-10.1); CREATININE 0.78 MG/DL (0.50-1.00)
[2017-08-16] MEDS: BENZTROPINE MESYLATE 1 MG TAB PO SCH ×2 (09:00→21:08)
[2017-08-16] MEDS: SODIUM CHLORIDE 0.9% FLUSH 10 ML FLUSH IV FLUSH SCH ×2 (09:00→21:09)
--- NOTE | 2017-08-16 10:48 | HHI.FF ---
Face to Face Verification Diagnosis: (1) Anemia (2) CHF exacerbation (3) Obstructive sleep apnea hypopnea, severe Physical Therapy Order: Evaluate and Treat Home Health Nursing Order: Nursing assessment with vital signs Instructions: Home health nurse for medication management. [employer]posal [employer] Operator Order: To Evaluate: Support services I have seen patient Cary Marte on 08/16/17. My clinical findings support the need for the requested home health care services because: Med compliance is questionable Limited ability to care for self I certify that my clinical findings support that this patient is homebound because: Unsafe to leave home unassisted Houston Loo MD Aug 16, 2017 10:48
[2017-08-16] MEDS ORDERED: FURO1TAB62 PO (10:51)
[2017-08-16] MEDS ORDERED: XARE20TA PO (10:51)
[2017-08-16] MEDS ORDERED: OXYC-103 PO (10:52)
--- NOTE | 2017-08-16 11:03 | HHI.PR ---
Subjective Remarks Patient says she is feeling all right today. Feels like going home. We discussed increasing pain medication, and how this is a difficult situation given her severe sleep apnea. Adding more narcotics for pain would make sleep apnea worse which would exacerbate sickle cell Objective Vital Signs Date Time Temp Pulse Resp B/P (MAP) Pulse Ox O2 Delivery O2 Flow Rate FiO2 08/16/17 08:00 97.7 78 19 114/69 (84) 94 08/16/17 04:00 98.0 75 15 168/68 (101) 95 08/16/17 00:00 97.9 77 15 91/58 (69) 92 08/15/17 20:00 98.7 75 15 97/62 (74) 92 08/15/17 19:36 77 08/15/17 19:35 Nasal Cannula 3.00 08/15/17 16:00 97.3 81 17 94/63 (73) 94 08/15/17 15:00 14 08/15/17 12:00 97.9 84 17 98/65 (76) 93 I/O 08/15/17 08/15/17 08/15/17 08/16/17 08/16/17 08/16/17 07:00 15:00 23:00 07:00 15:00 23:00 Intake Total 600 ml 400 ml Balance 600 ml 400 ml Intake Oral 600 ml 400 ml # Voids 2 1 2 # Bowel Movements 0 Result Diagram: 08/16/17 0555 08/16/17 0555 Objective Remarks GENERAL: Patient lying in bed. Appears comfortable. SKIN: Warm and dry. HEAD: Normocephalic. EYES: No scleral icterus. No injection or drainage. NECK: Supple, trachea midline. No JVD. CARDIOVASCULAR: Regular rate and rhythm without murmurs, gallops, or rubs. RESPIRATORY: Breath sounds equal bilaterally. No accessory muscle use. GASTROINTESTINAL: Abdomen soft, non-tender, nondistended. MUSCULOSKELETAL: No cyanosis. 2+ right lower extremity edema. 1+ left lower extremity edema BACK: Nontender without obvious deformity. No CVA tenderness. A/P Assessment and Plan 42 YOAAF with history of sickle cell anemia, CHF, and AMBAR admitted for symptomatic anemia and CHF exacerbation. //CHF exacerbation Elevated BNP on arrival, patient is poorly compliant with medical treatments at home Symptoms are improving PO Lasix challenge Monitor I's and O's Per EMR, patient went from 92 kg yesterday to 107.6 kg today (?error) Fluid and sodium restriction = Order home health for medication management. Increase Lasix to twice daily at home. //Symptomatic anemia Secondary to sickle cell anemia, no obvious bleeding and hemodynamically stable Status post transfusion of 2 units of PRBCs H&H stable with Hb ~7.1-7.5 Supplemental O2 Monitor CBC = Hemoglobin stable at 7.5. No signs of bleeding. //Pain crisis Improving pain in B/L LE Neg for DVT Continue Percocet = Let OxyContin 10 mg twice daily for improved baseline coverage. //h/o RLE DVT Repeat ultrasound was negative for DVT Continue treatment dose of Xarelto due to recent history //Obstructive sleep apnea Patient is poorly compliant with treatment at home which leaves hypoxic episodes inducing sickle cell crisis On continuous O2 at home Would benefit from CPAP as outpatient = Patient has oxygen at home. Does not want to use CPAP, despite explanation of its effect on ss.. have ordered pulmonology referral as outpatient. //h/o schizophrenia Stable Continue home meds DVT prophylaxis On Xarelto for DVT treatment Discharge Planning Discharge home with home health today. Houston Loo MD Aug 16, 2017 11:03
--- NOTE | 2017-08-16 11:04 | HHI.DS ---
Discharge Summary Admission Date Aug 12, 2017 at 22:16 Discharge Date: Aug 17, 2017 Admitting Diagnosis symptomatic anemia, CHF exacerbation (1) CHF exacerbation ICD Code: I50.9 - Heart failure, unspecified Status: Acute (2) Symptomatic anemia ICD Code: D64.9 - Anemia, unspecified Status: Chronic (3) Right leg DVT ICD Code: I82.401 - Acute embolism and thrombosis of unspecified deep veins of right lower extremity (4) Obstructive sleep apnea hypopnea, severe ICD Code: G47.33 - Obstructive sleep apnea (adult) (pediatric) Status: Chronic (5) Sickle cell anemia ICD Code: D57.1 - Sickle-cell disease without crisis Status: Chronic (6) Schizophrenia ICD Code: F20.9 - Schizophrenia, unspecified Status: Chronic Procedures No invasive procedures Brief History - From Admission 42-year-old female with a medical history significant for sickle cell anemia, CHF, history of DVT, schizophrenia presented to the hospital with complaint of bilateral leg pain and shortness of breath. The patient was recently discharged from the hospital on 07/29/17 after she was admitted for sepsis, CHF. She was discharged home and returned today due to persistent leg pain and shortness of breath. Workup in the emergency room revealed CHF and anemia with a hemoglobin of 6.6. The patient will need transfusion and further stabilization. Therefore she is being admitted for further workup and treatment. She is a very poor historian and falls asleep mid conversation quite often. Some of the history obtained from the EMR. CBC/BMP: 08/16/17 0555 08/16/17 0555 Significant Findings Laboratory Tests Test 08/14/17 06:35 08/15/17 07:10 08/16/17 05:55 Red Blood Count 2.28 MIL/MM3 (4.00-5.30) 2.41 MIL/MM3 (4.00-5.30) 2.44 MIL/MM3 (4.00-5.30) Hemoglobin 7.1 GM/DL (11.6-15.3) 7.5 GM/DL (11.6-15.3) 7.5 GM/DL (11.6-15.3) Hematocrit 20.1 % (35.0-46.0) 21.3 % (35.0-46.0) 21.6 % (35.0-46.0) Red Cell Distribution Width 19.5 % (11.6-17.2) 19.2 % (11.6-17.2) 20.2 % (11.6-17.2) Monocytes (%) (Auto) 15.0 % (0.0-8.0) 19.5 % (0.0-8.0) 15.8 % (0.0-8.0) Monocytes # (Auto) 1.1 TH/MM3 (0-0.9) 1.4 TH/MM3 (0-0.9) 1.4 TH/MM3 (0-0.9) Platelet Morphology Comment ENLARGED (NORMAL) Sickle Cells 1+ (NORMAL) Target Cells 1+ (NORMAL) Acanthocytes OCC (NORMAL) B-Type Natriuretic Peptide 653 PG/ML (0-100) Blood Urea Nitrogen 42 MG/DL (7-18) 41 MG/DL (7-18) Calcium Level 8.4 MG/DL (8.5-10.1) Carbon Dioxide Level 32.4 MEQ/L (21.0-32.0) 33.2 MEQ/L (21.0-32.0) Chloride Level 97 MEQ/L (98-107) Imaging Last Impressions Chest X-Ray 08/12/172027 Signed Impressions: Service Date/Time: August 20:39 - CONCLUSION: Significantly enlarged heart. Mild increased interstitial markings suggesting mild pulmonary vascular congestion or infiltrates. Tong Michael MD Lower Extremity Ultrasound 08/12/17 0000 Signed Impressions: Service Date/Time: August 21:57 - CONCLUSION: 1. The study is negative for deep venous thrombosis bilateral lower extremity. 2. Smooth margin , non-shadowing hypoechoic solid lesion in the left iliac region measuring 3.0 x 2.7 x 1.9 cm, of uncertain significance, possibly an enlarged lymph node. Juan M Prajapati MD PE at Discharge GENERAL: Obese, short stature SKIN: Warm and dry. HEAD: Normocephalic. EYES: No scleral icterus. No injection or drainage. NECK: Supple, trachea midline. No JVD or lymphadenopathy. CARDIOVASCULAR: Regular rate and rhythm without murmurs, gallops, or rubs. RESPIRATORY: Scattered congestive sounds, rhonchi, no wheezing. No accessory muscle use. GASTROINTESTINAL: Abdomen soft, non-tender, nondistended. EXTREMITIES: No cyanosis, or edema. NEUROLOGICAL: Awake, alert, and oriented x 3. Non-focal. Hospital Course Chest x-ray on admission with what appears to be pulmonary edema. BNP elevated in the 600s. Patient was diuresed with improvement in shortness of breath. Hemoglobin 6.6 on admission, improved to 7.5 with transfusion. Patient will be discharged home on increased dose of Lasix. Basal pain control was added with OxyContin. Patient also with sleep apnea, noncompliant, which will need to be treated. Patient encouraged to follow-up with primary care, pulmonology as outpatient to obtain appropriate CPAP. Would recommend against going up on narcotics due to severe sleep apnea in the setting of sickle cell anemia Problem based summary from most recent progress note, please see below. 42 YOAAF with history of sickle cell anemia, CHF, and AMBAR admitted for symptomatic anemia and CHF exacerbation. //CHF exacerbation Elevated BNP on arrival, patient is poorly compliant with medical treatments at home Symptoms are improving PO Lasix challenge Monitor I's and O's Per EMR, patient went from 92 kg yesterday to 107.6 kg today (?error) Fluid and sodium restriction = Discharge with home health for medication management. Increase Lasix to twice daily at home. //Symptomatic anemia Secondary to sickle cell anemia, no obvious bleeding and hemodynamically stable Status post transfusion of 2 units of PRBCs H&H stable with Hb ~7.1-7.5 Supplemental O2 Monitor CBC = Hemoglobin stable at 7.5. No signs of bleeding. //Pain crisis Improving pain in B/L LE Neg for DVT Continue Percocet = Let OxyContin 10 mg twice daily for improved baseline coverage. //h/o RLE DVT Repeat ultrasound was negative for DVT Continue treatment dose of Xarelto due to recent history //Obstructive sleep apnea Patient is poorly compliant with treatment at home which leaves hypoxic episodes inducing sickle cell crisis On continuous O2 at home Would benefit from CPAP as outpatient = Patient has oxygen at home. Does not want to use CPAP, despite explanation of its effect on ss.. have ordered pulmonology referral as outpatient. //h/o schizophrenia Stable Continue home meds DVT prophylaxis On Xarelto for DVT treatment Discharge Planning Discharge had been held due to issues with home health Discharge home with home health today. Pt Condition on Discharge: Good Discharge Disposition: Disch w/ Home Health Serv Discharge Time: > 30 minutes Discharge Instructions DIET: Follow Instructions for: Heart Healthy Diet Activities you can perform: Regular-No Restrictions Activities to Avoid: Strenuous Activity Follow up Referrals: Oncology/Hematology - 1 Week PCP Follow-up - 1 Week Pulmonology - 1 Week New Medications: Oxycodone ER (Oxycontin) 10 Mg Tab 10 MG PO Q12HR for Pain Management, #20 TAB 0 Refills Changed Medications: Furosemide (Lasix) 20 Mg Tab 20 MG PO BID for water pill, #30 TAB 0 Refills (Changed from: DAILY) Continued Medications: Benztropine (Benztropine) 0.5 Mg Tab 1 MG PO BID, #60 TAB 0 Refills Citalopram (Citalopram) 20 Mg Tab 20 MG PO DAILY for Control Depression, #30 TAB 0 Refills Deferasirox (Jadenu) 360 Mg Tab 1080 MG PO DAILY, TAB 0 Refills Fentanyl Patch 72 HR (Fentanyl Patch 72 HR) 50 Mcg/Hr Patch 50 MCG T-DERMAL Q72H for Pain Management, #10 PATCH 0 Refills Remove old patch when new one placed. Folic Acid (Folic Acid) 0.4 Mg Tab 1 MG PO DAILY for Nutritional Supplement, TAB 0 Refills Hydrocodone-Acetaminophen ([place]) 10-325 Mg Tab 1 TAB PO QID PRN for PAIN, TAB 0 Refills Hydroxyurea (Hydrea) 500 Mg Cap 1000 MG PO DAILY, CAP 0 Refills Paliperidone ER (Paliperidone ER) 3 Mg Tab 3 MG PO DAILY for Schizophrenia, #30 TAB 0 Refills Rivaroxaban (Xarelto) 20 Mg Tab 20 MG PO DAILY for Blood Clot Prevention for 30 Days, #30 TAB 0 Refills (This prescription has been renewed) Discontinued Medications: Levofloxacin (Levaquin) 750 Mg Tablet 750 MG PO DAILY for Infection for 7 Days, #7 TAB 0 Refills Houston Loo MD Aug 16, 2017 11:04
[2017-08-16] MEDS: PALIPERIDONE ER 3 MG TAB PO SCH (11:59)
[2017-08-16] MEDS: RIVAROXABAN 20 MG TAB PO SCH (11:59)
[2017-08-16] MEDS: CITALOPRAM HYDROBROMIDE 20 MG TAB PO SCH (11:59)
[2017-08-16] MEDS: FUROSEMIDE 40 MG TAB PO SCH ×2 (12:00→18:38)
[2017-08-16] MEDS: HYDROXYUREA 500 MG CAP PO SCH (12:03)
[2017-08-16] MEDS ORDERED: oxyCODONE HCL 10 MG CONTROLLED RELEASE TAB PO ONE (13:00)
[2017-08-16] MEDS: oxyCODONE HCL 10 MG CONTROLLED RELEASE TAB PO SCH (13:04)
[2017-08-17] VITALS: PULSE 77
[2017-08-17] MEDS: oxyCODONE/ACETAMINOPHEN 5 MG/325 MG TAB PO PRN ×2 (00:54→11:10)
[2017-08-17 05:00] VITALS: BP 98/54; PULSE 79; RESP 18; TEMP 97.4; O2SAT 97
[2017-08-17 08:00] VITALS: BP 129/69; PULSE 85; RESP 20; TEMP 96.3; O2SAT 95
[2017-08-17] MEDS: oxyCODONE HCL 10 MG CONTROLLED RELEASE TAB PO SCH (09:00)
[2017-08-17] MEDS: SODIUM CHLORIDE 0.9% FLUSH 10 ML FLUSH IV FLUSH SCH (09:00)
[2017-08-17] MEDS: CITALOPRAM HYDROBROMIDE 20 MG TAB PO SCH (11:10)
[2017-08-17] MEDS: FUROSEMIDE 40 MG TAB PO SCH (11:11)
[2017-08-17] MEDS: RIVAROXABAN 20 MG TAB PO SCH (11:11)
[2017-08-17] MEDS: HYDROXYUREA 500 MG CAP PO SCH (11:14)
[2017-08-17] MEDS: PALIPERIDONE ER 3 MG TAB PO SCH (11:14)
[2017-08-17] MEDS: BENZTROPINE MESYLATE 1 MG TAB PO SCH (11:16)
[2017-08-17 11:33] VITALS: BP 106/72; PULSE 79; RESP 20; TEMP 97.6; O2SAT 94
--- NOTE | 2017-08-17 13:13 | HHI.PR ---
Subjective Remarks Patient seen this morning around 9 AM. Says she is feeling much better. Feels like going home. Reports pain is controlled. Denies any chest pain shortness of breath discussed with nursing at [facility]. Objective Vital Signs Date Time Temp Pulse Resp B/P (MAP) Pulse Ox O2 Delivery O2 Flow Rate FiO2 08/17/17 11:33 97.6 79 20 106/72 (83) 94 08/17/17 08:00 96.3 85 20 129/69 (89) 95 08/17/17 05:00 97.4 79 18 98/54 (69) 97 08/17/17 00:00 77 08/16/17 23:24 97.1 80 18 92/51 (65) 98 08/16/17 23:05 77 08/16/17 21:10 Nasal Cannula 3.00 08/16/17 19:46 98.9 84 18 101/48 (65) 99 08/16/17 13:35 97.8 73 19 108/73 (85) 95 I/O 08/16/17 08/16/17 08/16/17 08/17/17 08/17/17 08/17/17 07:00 15:00 23:00 07:00 15:00 23:00 Intake Total 960 ml 1420 ml 240 ml Balance 960 ml 1420 ml 240 ml Intake Oral 960 ml 1420 ml 240 ml # Voids 2 3 4 4 # Bowel Movements 2 0 1 Result Diagram: 08/16/17 0555 08/16/17 0555 Objective Remarks GENERAL: Patient lying in bed. Appears comfortable. Exam unchanged SKIN: Warm and dry. HEAD: Normocephalic. EYES: No scleral icterus. No injection or drainage. NECK: Supple, trachea midline. No JVD. CARDIOVASCULAR: Regular rate and rhythm without murmurs, gallops, or rubs. RESPIRATORY: Breath sounds equal bilaterally. No accessory muscle use. GASTROINTESTINAL: Abdomen soft, non-tender, nondistended. MUSCULOSKELETAL: No cyanosis. 2+ right lower extremity edema. 1+ left lower extremity edema BACK: Nontender without obvious deformity. No CVA tenderness. A/P Assessment and Plan 42 YOAAF with history of sickle cell anemia, CHF, and AMBAR admitted for symptomatic anemia and CHF exacerbation. //CHF exacerbation Elevated BNP on arrival, patient is poorly compliant with medical treatments at home Symptoms are improving PO Lasix challenge Monitor I's and O's Per EMR, patient went from 92 kg yesterday to 107.6 kg today (?error) Fluid and sodium restriction = Discharge with home health for medication management. Increase Lasix to twice daily at home. //Symptomatic anemia Secondary to sickle cell anemia, no obvious bleeding and hemodynamically stable Status post transfusion of 2 units of PRBCs H&H stable with Hb ~7.1-7.5 Supplemental O2 Monitor CBC = Hemoglobin stable at 7.5. No signs of bleeding. //Pain crisis Improving pain in B/L LE Neg for DVT Continue Percocet = Let OxyContin 10 mg twice daily for improved baseline coverage. //h/o RLE DVT Repeat ultrasound was negative for DVT Continue treatment dose of Xarelto due to recent history //Obstructive sleep apnea Patient is poorly compliant with treatment at home which leaves hypoxic episodes inducing sickle cell crisis On continuous O2 at home Would benefit from CPAP as outpatient = Patient has oxygen at home. Does not want to use CPAP, despite explanation of its effect on ss.. have ordered pulmonology referral as outpatient. //h/o schizophrenia Stable Continue home meds DVT prophylaxis On Xarelto for DVT treatment Discharge Planning Discharge had been held due to issues with home health Discharge home with home health today. Houston Loo MD Aug 17, 2017 13:13
== END 2017-08-17 12:10 | disposition home health service (06) | DRG 291 ==
LOC: NEPC 19:55 → NEDA 22:16 → N06B 08-13 00:10
PROVIDERS: ADMIT Internal Medicine; ATTEND Internal Medicine
PROC: 30233N1 Transfusion of Nonautologous Red Blood Cells into Peripheral Vein, Percutaneous Approach (ICD-10-PCS; principal; 2017-08-12)
DX: I50.33 Acute on chronic diastolic (congestive) heart failure (principal); D57.00 Hb-SS disease with crisis, unspecified; I82.401 Acute embolism and thrombosis of unspecified deep veins of right lower extremity; Z68.41 Body mass index [BMI] 40.0-44.9, adult; Z86.718 Personal history of other venous thrombosis and embolism; Z79.02 Long term (current) use of antithrombotics/antiplatelets; G47.33 Obstructive sleep apnea (adult) (pediatric); F20.9 Schizophrenia, unspecified; Z91.19 Patient's noncompliance with other medical treatment and regimen; E66.9 Obesity, unspecified
CPT/HCPCS: 36430; 71045; 80048; 80053; 81001; 82550; 83735; 83880; 84484; 84703; 85007; 85025; 85027; 85044; 85610; 85730; 86850; 86900; 86901; 86920; 93005; 93970; 99285; J1642; J1940; J2270; J7050; P9016; P9612